=== PATIENT | male | born 1970 | race Caucasian/White ===

== ENCOUNTER 2018-03-31 21:10 | Inpatient (IN) | payer OTHER ==
--- NOTE | 2018-03-31 21:38 | ED ---
General Adult HPI - General Chief complaint: Fall Stated complaint: Recheck, CHF, Edema Time Seen by Provider: 03/31/18 21:24 Source: patient, EMS, RN notes reviewed Mode of arrival: EMS Limitations: physical limitation - History of Present Illness Initial comments: Patient is a pleasant 47-year-old male presenting to the emergency Department with generalized weakness and edema. Patient has chronic edema from congestive heart failure. Patient has been off his medications for the last couple of months. Edema is worse than normal. Patient feels somewhat weak all over. Patient did have a fall and had difficulty getting up. Patient was on the ground for less than 2 hours. No significant injury. No chest pain. Patient states he does not really feel short of breath. - Related Data Home Medications Medication Instructions Recorded Confirmed Ibuprofen [Motrin Ib] 600 mg PO Q8HR 03/31/18 03/31/18 Allergies Allergy/AdvReac Type Severity Reaction Status Date / Time No Known Allergies Allergy Unverified 03/31/18 21:28 Review of Systems ROS Statement: Those systems with pertinent positive or pertinent negative responses have been documented in the HPI. ROS Other: All systems not noted in ROS Statement are negative. Constitutional: Denies: fever Eyes: Denies: eye pain ENT: Denies: ear pain Respiratory: Denies: dyspnea Cardiovascular: Reports: edema. Denies: chest pain Endocrine: Reports: fatigue Gastrointestinal: Denies: abdominal pain Genitourinary: Denies: dysuria Musculoskeletal: Denies: back pain Skin: Denies: rash Neurological: Reports: weakness. Denies: headache, confusion Past Medical History Past Medical History: Heart Failure, Diabetes Mellitus History of Any Multi-Drug Resistant Organisms: None Reported Past Surgical History: Tonsillectomy Additional Past Surgical History / Comment(s): hand surgery, Past Psychological History: No Psychological Hx Reported Smoking Status: Current every day smoker Past Alcohol Use History: Rare Past Drug Use History: None Reported General Exam Limitations: physical limitation General appearance: alert, in no apparent distress, obese Head exam: Present: atraumatic Eye exam: Present: normal appearance, PERRL ENT exam: Present: normal oropharynx Neck exam: Present: normal inspection Respiratory exam: Present: normal lung sounds bilaterally Cardiovascular Exam: Present: tachycardia GI/Abdominal exam: Present: soft. Absent: tenderness Extremities exam: Present: pedal edema. Absent: calf tenderness Neurological exam: Present: alert, oriented X3, CN II-XII intact. Absent: motor sensory deficit Psychiatric exam: Present: normal affect, normal mood Skin exam: Present: other (Umbilical skin fold and bilateral inguinal skin fold with moistness and erythema) Course Vital Signs 03/31/18 21:12 Temperature 98.7 F Pulse Rate 126 H Respiratory 24 Rate Blood Pressure 152/102 O2 Sat by Pulse 94 L Oximetry EKG Findings - EKG Comments: EKG Findings:: Sinus tachycardia 120. PVCs present. UT 154. QRS 106. QT 324. QTC 457. Normal axis. Normal QRS. No acute ST change. Medical Decision Making - Medical Decision Making Patient reevaluated and resting comfortably in bed. Patient family updated on results and plan. Patient states he does have some history of kidney problems however is unclear what his function normally is. Case was discussed in detail with Dr. Del Rio, covering for Dr. Armendariz, who will admit. - Lab Data Result diagrams: 03/31/18 21:39 03/31/18 21:39 Lab Results 03/31/18 03/31/18 03/31/18 Range/Units 21:39 21:39 21:39 WBC 19.1 H (3.8-10.6) k/uL RBC 4.79 (4.30-5.90) m/uL Hgb 14.3 (13.0-17.5) gm/dL Hct 46.7 (39.0-53.0) % MCV 97.5 (80.0-100.0) fL MCH 29.8 (25.0-35.0) pg MCHC 30.6 L (31.0-37.0) g/dL RDW 15.0 (11.5-15.5) % Plt Count 290 (150-450) k/uL Neutrophils % 91 % Lymphocytes % 3 % Monocytes % 4 % Eosinophils % 1 % Basophils % 0 % Neutrophils # 17.4 H (1.3-7.7) k/uL Lymphocytes # 0.5 L (1.0-4.8) k/uL Monocytes # 0.8 (0-1.0) k/uL Eosinophils # 0.1 (0-0.7) k/uL Basophils # 0.1 (0-0.2) k/uL Hypochromasia Slight PT (9.0-12.0) sec INR (<1.2) APTT (22.0-30.0) sec Sodium 136 L (137-145) mmol/L Potassium 4.0 (3.5-5.1) mmol/L Chloride 100 (98-107) mmol/L Carbon Dioxide 19 L (22-30) mmol/L Anion Gap 17 mmol/L BUN 54 H (9-20) mg/dL Creatinine 2.55 H (0.66-1.25) mg/dL Est GFR (CKD-EPI)AfAm 33 (>60 ml/min/1.73 sqM) Est GFR (CKD-EPI)NonAf 28 (>60 ml/min/1.73 sqM) Glucose 145 H (74-99) mg/dL Calcium 9.0 (8.4-10.2) mg/dL Total Bilirubin 1.3 (0.2-1.3) mg/dL AST 33 (17-59) U/L ALT 19 L (21-72) U/L Alkaline Phosphatase 125 (38-126) U/L Total Creatine Kinase (55-170) U/L CK-MB (CK-2) (0.0-2.4) ng/mL CK-MB (CK-2) Rel Index Troponin I (0.000-0.034) ng/mL NT-Pro-B Natriuret Pep 8640 pg/mL Total Protein 6.3 (6.3-8.2) g/dL Albumin 2.8 L (3.5-5.0) g/dL 03/31/18 03/31/18 Range/Units 21:39 21:39 WBC (3.8-10.6) k/uL RBC (4.30-5.90) m/uL Hgb (13.0-17.5) gm/dL Hct (39.0-53.0) % MCV (80.0-100.0) fL MCH (25.0-35.0) pg MCHC (31.0-37.0) g/dL RDW (11.5-15.5) % Plt Count (150-450) k/uL Neutrophils % % Lymphocytes % % Monocytes % % Eosinophils % % Basophils % % Neutrophils # (1.3-7.7) k/uL Lymphocytes # (1.0-4.8) k/uL Monocytes # (0-1.0) k/uL Eosinophils # (0-0.7) k/uL Basophils # (0-0.2) k/uL Hypochromasia PT 12.1 H (9.0-12.0) sec INR 1.2 H (<1.2) APTT 25.8 (22.0-30.0) sec Sodium (137-145) mmol/L Potassium (3.5-5.1) mmol/L Chloride (98-107) mmol/L Carbon Dioxide (22-30) mmol/L Anion Gap mmol/L BUN (9-20) mg/dL Creatinine (0.66-1.25) mg/dL Est GFR (CKD-EPI)AfAm (>60 ml/min/1.73 sqM) Est GFR (CKD-EPI)NonAf (>60 ml/min/1.73 sqM) Glucose (74-99) mg/dL Calcium (8.4-10.2) mg/dL Total Bilirubin (0.2-1.3) mg/dL AST (17-59) U/L ALT (21-72) U/L Alkaline Phosphatase (38-126) U/L Total Creatine Kinase 125 (55-170) U/L CK-MB (CK-2) 3.1 H (0.0-2.4) ng/mL CK-MB (CK-2) Rel Index 2.5 Troponin I 0.124 H* (0.000-0.034) ng/mL NT-Pro-B Natriuret Pep pg/mL Total Protein (6.3-8.2) g/dL Albumin (3.5-5.0) g/dL - Radiology Data Radiology results: image reviewed (Chest x-ray shows cardiomegaly.) Disposition Clinical Impression: Fall, CHF (congestive heart failure), Renal insufficiency Disposition: ADMITTED IP TO THIS HOSP Condition: Serious Is patient prescribed a controlled substance at d/c from ED?: No Referrals: Daniel Colon MD [Primary Care Provider] - 1-2 days Decision Time: 23:44
[2018-03-31 21:52] LABS: Basophils # (A) 0.1 k/uL (0-0.2); Basophils % (A) 0 %; Eosinophils # (A) 0.1 k/uL (0-0.7); Eosinophils % (A) 1 %; HCT 46.7 % (39.0-53.0); HGB 14.3 gm/dL (13.0-17.5); Hypochromasia Slight; Lymphocytes # (A) 0.5 k/uL (1.0-4.8); Lymphocytes % (A) 3 %; MCH 29.8 pg (25.0-35.0); MCHC 30.6 g/dL (31.0-37.0); MCV 97.5 fL (80.0-100.0); Mean Platelet Volume 7.1; Monocytes # (A) 0.8 k/uL (0-1.0); Monocytes % (A) 4 %; Neutrophils # (A) 17.4 k/uL (1.3-7.7); Neutrophils % (A) 91 %; Platelet Count 290 k/uL (150-450); RBC 4.79 m/uL (4.30-5.90); WBC 19.1 k/uL (3.8-10.6)
[2018-03-31 22:09] LABS: Albumin 2.8 g/dL (3.5-5.0); Total Bilirubin 1.3 mg/dL (0.2-1.3); Total Protein 6.3 g/dL (6.3-8.2)
[2018-03-31 22:14] LABS: INR 1.2 (<1.2); Partial Thromboplastin Time 25.8 sec (22.0-30.0); Prothrombin Time 12.1 sec (9.0-12.0)
--- NOTE | 2018-03-31 22:19 | XR ---
EXAM: XR Chest, 2 Views CLINICAL HISTORY: ITS.REASON XR Reason: difficulty breathing TECHNIQUE: Frontal and lateral views of the chest. COMPARISON: No relevant prior studies available. FINDINGS: Lungs: Unremarkable. No consolidation. Pleural space: Unremarkable. No pneumothorax. Heart: Unremarkable. No cardiomegaly. Mediastinum: Unremarkable. Bones/joints: Unremarkable. IMPRESSION: No acute cardiopulmonary abnormality.
[2018-03-31 22:43] LABS: Troponin I 0.124 ng/mL (0.000-0.034)
[2018-03-31 23:19] LABS: Creatine Kinase MB 3.1 ng/mL (0.0-2.4)
[2018-03-31] MEDS ORDERED: HEPARIN SOD,PORK IN 0.45% NACL 25,000 UNIT in 0.45% NACL 1 250ML.BAG IV SCH (23:45)
[2018-03-31] MEDS ORDERED: ASPIRIN 325 MG TAB PO STA (23:46)
[2018-03-31] MEDS ORDERED: HEPARIN SODIUM,PORCINE 5,000 UNIT/ML 1 ML VIAL IV ONE (23:46)
[2018-03-31] MEDS ORDERED: HEPARIN SODIUM,PORCINE 5,000 UNIT/ML 1 ML VIAL IV PRN (23:46)
[2018-03-31] MEDS ORDERED: NITROGLYCERIN SL TABS 0.4 MG TAB SUBLINGUAL PRN (23:46)
[2018-04-01] MEDS: NYSTATIN 100,000 UNIT/GM POWD 15 GM TOPICAL SCH ×3 (00:17→22:48)
[2018-04-01] MEDS: NITROGLYCERIN OINT 1 INCH/GM PACKET TOPICAL SCH ×3 (00:35→15:42)
[2018-04-01] MEDS: FUROSEMIDE 10 MG/ML 4 ML VIAL IV SCH ×3 (00:35→18:17)
[2018-04-01 04:03] LABS: Amorphous Sediment,Urine Rare /hpf; Appearance,Urine Cloudy (Clear); Bacteria,Urine Occasional /hpf; Bilirubin,Urine Negative (Negative); Blood,Urine Small (Negative); Color,Urine Yellow; Glucose,Urine (UA) Negative (Negative); Hyaline Casts,Urine 1 /lpf (0-2); Ketones,Urine Negative (Negative); Leukocyte Esterase,Urine Negative (Negative); Mucus,Urine Rare /hpf; Nitrite,Urine Negative (Negative); PH, Urine 5.5 (5.0-8.0); Protein,Urine 2+ (Negative); RBC,Urine 3 /hpf (0-5); Specific Gravity,Urine 1.016 (1.001-1.035); Squamous Epithelial Cell,Urine <1 /hpf (0-4); WBC,Urine 2 /hpf (0-5)
[2018-04-01 05:00] LABS: Creatine Kinase MB 3.5 ng/mL (0.0-2.4)
[2018-04-01 05:17] LABS: Troponin I 0.149 ng/mL (0.000-0.034)
[2018-04-01 05:44] LABS: Glucose,Whole Blood 124 mg/dL (75-99)
[2018-04-01] MEDS ORDERED: ACETAMINOPHEN TAB 325 MG TAB PO PRN (06:16)
[2018-04-01] MEDS: INSULIN ASPART (NovoLOG) 100 UNIT/ML VIAL SQ SCH ×4 (07:19→20:45)
[2018-04-01 07:45] LABS: Mean Platelet Volume 7.9; Platelet Count 233 k/uL (150-450)
[2018-04-01 07:50] LABS: Partial Thromboplastin Time 26.7 sec (22.0-30.0)
[2018-04-01 08:12] LABS: Cholesterol 79 mg/dL (<200); HDL Cholesterol 12 mg/dL (40-60); LDL Cholesterol,Calculated 32 mg/dL (0-99); Triglycerides 176 mg/dL (<150)
[2018-04-01 08:42] LABS: Calcium 8.8 mg/dL (8.4-10.2); Magnesium 1.9 mg/dL (1.6-2.3); Potassium 3.8 mmol/L (3.5-5.1)
--- NOTE | 2018-04-01 09:05 | P.CRDCN ---
History of Present Illness Consult date: 04/01/18 Requesting physician: Lazaro Del Rio Consult reason: congestive heart failure Chief complaint: Shortness of breath, swelling History of present illness: This is a 47-year-old morbidly obese gentleman with documented history of hypertension, diabetes, denies hyperlipidemia, he smokes one pack of cigarettes per day, states that he does drink alcohol but not in excess as he did in the past. According to the patient, he also has known issues with his kidneys, he does not follow regularly with the physician. He states that he's been getting progressively weak, he states he did have a fall and ended up on the floor and was unable to get back. Patient also states that he had stopped taking all of his medications as prescribed at least 2 months ago if not more. Chest x-ray does not reveal any acute cardiopulmonary abnormality. EKG shows a sinus tachycardia with frequent PVCs. Blood pressure on arrival here 152/102, heart rate 126, 94% on 2 L of oxygen. Blood pressure this morning 142/80 with a heart rate in the 100, 96% on 3 L of oxygen. White blood cell count 19.1, hemoglobin 14.3, platelet count 233. Sodium 136 on admission potassium 4.0, BUN 54 and creatinine 2.5, BNP level 8640. Lab tests from this morning, sodium 138, potassium 3.8, BUN 61 and creatinine 2.6. Troponins 0.124, 0.149. Patient was initiated on IV heparin in the emergency room, he was also started on IV Lasix and Nitropaste. Weight is down significantly from admission, he is diuresing well on IV Lasix. Past Medical History Past Medical History: Heart Failure, Diabetes Mellitus History of Any Multi-Drug Resistant Organisms: None Reported Past Surgical History: Tonsillectomy Additional Past Surgical History / Comment(s): hand surgery, Smoking Status: Current every day smoker - Past Family History Mother Family Medical History: Renal Disease Additional Family Medical History / Comment(s): lasik eye surgery Father Family Medical History: Myocardial Infarction ([place]) Additional Family Medical History / Comment(s): lasik eye surgery Medications and Allergies Home Medications Medication Instructions Recorded Confirmed Type Ibuprofen [Motrin Ib] 600 mg PO Q8HR 03/31/18 03/31/18 History Allergies Allergy/AdvReac Type Severity Reaction Status Date / Time No Known Allergies Allergy Unverified 03/31/18 21:28 Physical Exam Vitals: Vital Signs Temp Pulse Pulse Resp BP BP Pulse Ox 04/01/18 04:00 97.4 F L 104 H 18 142/85 96 04/01/18 03:30 97.4 F L 104 H 18 145/85 96 04/01/18 00:16 97.3 F L 04/01/18 00:00 106 H 18 146/84 96 03/31/18 23:35 96 03/31/18 21:12 98.7 F 126 H 24 152/102 94 L Intake and Output 03/31/18 04/01/18 04/01/18 22:59 06:59 14:59 Intake Total 0 Output Total 1000 Balance -1000 0 Intake: Oral 0 Output: Urine 1000 Other: Voiding Method Indwelling Catheter Weight 188.694 kg 180 kg PHYSICAL EXAMINATION: GENERAL: 47-year-old morbidly obese gentleman in no acute distress at the time of my examination HEENT: Head is atraumatic, normocephalic. Pupils equal, round. Sclera anicteric. Conjunctiva are clear. Mucous membranes of the mouth are moist. Neck is supple. Unable to assess jugular venous pressure. No carotid bruit is heard. HEART EXAMINATION: Heart S1, S2 tachycardic, distant. No murmur or gallop heard. CHEST EXAMINATION: Lungs reveal diminished air entry bilaterally ABDOMEN: Soft, obese ,nontender. Bowel sounds are heard. No organomegaly noted. EXTREMITIES: 1+ peripheral pulses with 3-4+ evidence of peripheral edema, evidence of chronic a venous stasis. NEUROLOGIC [ptient is awake, alert and oriented 3 . . Results 04/01/18 07:06 04/01/18 07:06 Cardiac Enzymes 03/31/18 03/31/18 04/01/18 Range/Units 21:39 21:39 03:48 AST 33 (17-59) U/L CK-MB (CK-2) 3.1 H 3.5 H (0.0-2.4) ng/mL Troponin I 0.124 H* 0.149 H* (0.000-0.034) ng/mL Coagulation 03/31/18 04/01/18 Range/Units 21:39 07:06 PT 12.1 H (9.0-12.0) sec APTT 25.8 26.7 (22.0-30.0) sec Lipids 04/01/18 Range/Units 07:06 Triglycerides 176 H (<150) mg/dL Cholesterol 79 (<200) mg/dL HDL Cholesterol 12 L (40-60) mg/dL CBC 03/31/18 04/01/18 Range/Units 21:39 07:06 WBC 19.1 H (3.8-10.6) k/uL RBC 4.79 (4.30-5.90) m/uL Hgb 14.3 (13.0-17.5) gm/dL Hct 46.7 (39.0-53.0) % Plt Count 290 233 (150-450) k/uL Comprehensive Metabolic Panel 03/31/18 04/01/18 Range/Units 21:39 07:06 Sodium 136 L 138 (137-145) mmol/L Potassium 4.0 3.8 (3.5-5.1) mmol/L Chloride 100 103 (98-107) mmol/L Carbon Dioxide 19 L 22 (22-30) mmol/L BUN 54 H 61 H (9-20) mg/dL Creatinine 2.55 H 2.67 H (0.66-1.25) mg/dL Glucose 145 H 130 H (74-99) mg/dL Calcium 9.0 8.8 (8.4-10.2) mg/dL AST 33 (17-59) U/L ALT 19 L (21-72) U/L Alkaline Phosphatase 125 (38-126) U/L Total Protein 6.3 (6.3-8.2) g/dL Albumin 2.8 L (3.5-5.0) g/dL Current Medications Generic Name Dose Route Start Last Admin Trade Name Freq PRN Reason Stop Dose Admin Acetaminophen 650 mg 04/01/18 06:16 Tylenol Tab PO Q6HR PRN Fever and/ or Pain Aspirin 81 mg 04/02/18 09:00 Aspirin PO DAILY MANJIT Furosemide 40 mg 04/01/18 00:00 04/01/18 00:35 Lasix IV 40 mg Q8H MANJIT Administration Heparin Sodium (Porcine) 0 unit 03/31/18 23:46 Heparin IV Q6HR PRN Low PTT Protocol Heparin Sodium/Sodium Chloride 250 mls @ 10 mls/hr 03/31/18 23:45 04/01/18 00 :44 25,000 unit/ Sodium Chloride IV 1,000 units/hr .Q24H MANJIT 10 mls/hr Administration Protocol Insulin Aspart 0 unit 04/01/18 07:30 04/01/18 07:19 Novolog SQ Not Given ACHS [facility] Protocol Nitroglycerin 1 inch 03/31/18 23:45 04/01/18 00:35 Nitro-Bid Oint TOPICAL 1 inch QID MANJIT Administration Nitroglycerin 0.4 mg 03/31/18 23:46 Nitrostat SUBLINGUAL Q5M PRN Chest Pain Nystatin 1 applic 03/31/18 23:45 04/01/18 00:17 Mycostatin Powder TOPICAL 1 applic BID MANJIT Administration Sodium Chloride 10 ml 04/01/18 09:00 Saline Flush IV BID MANJIT Intake and Output 03/31/18 04/01/18 04/01/18 22:59 06:59 14:59 Intake Total 0 Output Total 1000 Balance -1000 0 Intake: Oral 0 Output: Urine 1000 Other: Voiding Method Indwelling Catheter Weight 188.694 kg 180 kg 04/01/18 07:06 04/01/18 07:06 EKG Interpretations (text) EKG shows a sinus tachycardia with frequent PVCs. Assessment and Plan Plan: Assessment and plan #1 symptoms of progressive weakness with associated shortness of breath and edema, congestive heart failure, LV function unknown #2 acute on chronic renal failure #3 diabetes #4 morbid obesity #5 hyperlipidemia #6 nicotine dependence #7 EtOH use #8 family history of premature coronary artery disease #9 noncompliance #10 abnormality in troponin, likely secondary to abnormal renal function and congestive heart failure. Plan We will obtain an echocardiogram with Doppler study. Continue IV Lasix. Add a beta ixomy to his medication regime, continue Nitropaste at this time, decrease aspirin 81 mg daily. We will also check a hemoglobin A1c, d-dimer, TSH , patient needs significant counseling regarding lifestyle, diet, diabetes, self -care. Further recommendations to follow. DNP note has been reviewed, I agree with a documented findings and plan of care. Patient was seen and examined.
[2018-04-01 09:48] LABS: D-Dimer 2.97 mg/L FEU (<0.60)
[2018-04-01] MEDS: METOPROLOL TARTRATE 25 MG TAB PO SCH ×2 (10:39→20:43)
--- NOTE | 2018-04-01 10:53 | ECHOF ---
Referral Reason:Heart Failure MEASUREMENTS -------- HEIGHT: 185.4 cm WEIGHT: 178.3 kg BP: IVSd: 1.6 cm (0.6 - 1.1) LVIDd: 4.0 cm (3.9 - 5.3) LVPWd: 1.7 cm (0.6 - 1.1) IVSs: 1.8 cm LVIDs: 3.0 cm LVPWs: 1.9 cm LAESV Index (A-L): 26.85 ml/m Ao Diam: 3.9 cm (2.0 - 3.7) AV Cusp: 2.3 cm (1.5 - 2.6) LA Diam: 3.9 cm (2.7 - 3.8) MV EXCURSION: 16.139 mm (> 18.000) MV EF SLOPE: 143 mm/s (70 - 150) EPSS: 1.3 cm MV E Albert: 0.80 m/s MV DecT: 301 ms MV A Albert: 0.86 m/s MV E/A Ratio: 0.94 RAP: 5.00 mmHg RVSP: 11.24 mmHg FINDINGS -------- Resting tachycardia (HR>100bpm). This was a technically difficult study with suboptimal views. Morbid Obesity The left ventricular size is normal. There is moderate concentric left ventricular hypertrophy. O verall left ventricular systolic function is low-normal with, an EF between 50 - 55 %. The RV was not well visualized. The left atrial size is normal. The right atrium was not well visualized. Lumason used The aortic valve is trileaflet and appears structurally normal. There is trace mitral regurgitation. Trace tricuspid regurgitation present. The right ventricular systolic pressure, as measured by Dopp ler, is 11.24mmHg. The pulmonic valve was not well visualized. The aortic root size is normal. IVC Not well visulized. The pericardium is normal. CONCLUSIONS -------- 1. Resting tachycardia (HR>100bpm). 2. This was a technically difficult study with suboptimal views. 3. Morbid Obesity 4. The left ventricular size is normal. 5. There is moderate concentric left ventricular hypertrophy. 6. Overall left ventricular systolic function is low-normal with, an EF between 50 - 55 %. 7. The RV was not well visualized. 8. The left atrial size is normal. 9. The right atrium was not well visualized. 10. Lumason used 11. The aortic valve is trileaflet and appears structurally normal. 12. There is trace mitral regurgitation. 13. Trace tricuspid regurgitation present. 14. The right ventricular systolic pressure, as measured by Doppler, is 11.24mmHg. 15. The pulmonic valve was not well visualized. 16. The aortic root size is normal. 17. IVC Not well visulized. 18. The pericardium is normal. CORPSMAN: Mary Jane Benson RDCS
[2018-04-01 11:22] LABS: Glucose,Whole Blood 153 mg/dL (75-99)
[2018-04-01 12:59] LABS: Creatine Kinase MB 2.5 ng/mL (0.0-2.4)
[2018-04-01 13:26] LABS: Troponin I 0.122 ng/mL (0.000-0.034)
--- NOTE | 2018-04-01 13:49 | NM ---
EXAMINATION TYPE: NM pul vent and perfuse DATE OF EXAM: 04/01/2018 COMPARISON: NONE HISTORY: Shortness of breath TECHNIQUE: Utilizing inhalation of 67.9 mCi Tc 99m DTPA aerosol and intravenous injection of 5.2 mCi of Tc 99m MAA, ventilation and perfusion images are acquired post injection in multiple projections. FINDINGS: There are a few scattered matched ventilation and perfusion defects noted. No evidence for perfusion mismatch. IMPRESSION: Low probability for PE.
--- NOTE | 2018-04-01 14:24 | US ---
EXAMINATION TYPE: US venous doppler duplex LE DATE OF EXAM: 04/01/2018 2:14 PM COMPARISON: NONE CLINICAL HISTORY: talia lower ext edema. Morbidly obese patient with open sores in bilateral groin SIDE PERFORMED: Bilateral TECHNIQUE: The lower extremity deep venous system is examined utilizing real time linear array sonog sumanth with graded compression, doppler sonography and color-flow sonography. VESSELS IMAGED: Femoral Vein Popliteal Vein Small Saphenous Vein * Proximal Calf Veins (* superficial vessels) Right Leg: Negative for DVT as visualized. Limited evaluation due to patient body habitus and skin s ores in patient's groin Left Leg: Negative for DVT as visualized. Limited evaluation due to patient body habitus and skin so res in patient's groin IMPRESSION: No evidence for DVT at this time.
[2018-04-01 16:25] LABS: Glucose,Whole Blood 130 mg/dL (75-99)
[2018-04-01] MEDS ORDERED: ceFAZolin IN SWFI 2 GM/20 ML SYRINGE IVP SCH (17:15)
--- NOTE | 2018-04-01 18:24 | HP ---
HISTORY AND PHYSICAL DATE OF ADMISSION: 03/31/2018 DATE OF SERVICE: 04/01/2018. PRESENTING COMPLAINT: Tired. HISTORY OF PRESENTING COMPLAINT: This is a 47-year-old patient of Dr. Colon from [facility]. The patient has not been taking medications for 2 months at least. States supposed to be diabetic but not really taking any medication, also knows congestive heart failure, presents with nonspecific symptoms. Says he has just not being feeling well. Appetite is okay. No fever. No chills. Just feels tired and run down. Somewhat lethargic. The patient is morbidly obese with over 180 kg and has put on close to 80 pounds in the last 1 year. The patient is becoming rather weak and tired to the point he is falling down and decided to then come in. The patient found have extensive fungal infection in the folds of the abdomen with secondary infection. The patient has been scratching himself. During my interview, history taking, patient is somewhat lethargic and sleepy. The patient did undergo for V/Q scan that came back as low probability. The patient has also had swelling of the legs. The patient is short of breath when I talk to him, but did he denies the same. Denies any cough, fever and chills. Patient also ultrasound lower extremity was negative for DVT. Kaye catheter was placed in the ER. The patient is also smoking cigarettes for over 24 years. REVIEW OF SYSTEMS: CONSTITUTIONAL: Weak and tired. HEENT none. RESPIRATORY: Short of breath. Slight cough. CARDIOVASCULAR as above. GASTROINTESTINAL: None. GENITOURINARY: Kaye catheter. DERMATOLOGICAL: Severe skin changes in the folds. HEMATOLOGICAL: None. LYMPHATICS none. PSYCHIATRY none. NEUROLOGICAL: Generalized weakness. PAST MEDICAL HISTORY: Heart failure, diabetes. PAST SURGICAL HISTORY: Tonsillectomy, hand surgery. SOCIAL HISTORY: Smoking a pack a day for 25 years. Alcohol occasionally. Was working at [employer], not anymore. Lives with his and kids. FAMILY HISTORY: Of renal disease, LASIK eye surgery. MEDICATIONS: Home medications: Motrin 600 mg q.8h p.r.n. ALLERGIES: None. PHYSICAL EXAMINATION: VITAL SIGNS: Vital signs on presentation, temperature 98.7, pulse 126, respiration 24, blood pressure 152/102, pulse ox 94 percent on 2 L. GENERAL APPEARANCE: Morbidly obese, BMI 49. Lying in bed, somewhat lethargic. EYES: Pupils equal. Conjunctivae normal. HEENT: External appearance of nose and ears normal. Oral cavity normal. NECK: Short, thick. JVD unable to assess. Mass not palpable. RESPIRATORY: Effort increased. LUNGS: Distant breath sounds. CARDIOVASCULAR: Heart sounds muffled. Edema present. ABDOMEN distended. Liver and spleen not palpable. No tenderness. LYMPHATICS: No lymph nodes palpable in the neck and axilla. PSYCHIATRY: Somewhat lethargic but able to answer simple questions. NEUROLOGICAL: No facial asymmetry. Moving all 4 limbs. DERMATOLOGICAL: Patient has got extensive redness in the skin folds under the abdomen with secondary breakdown of skin, rather inflamed and tender appearing. Also patient has got calluses on both the heels. INVESTIGATIONS: White count 19.1, hemoglobin 14.3. Potassium 4, BUN 54, creatinine 2.55. Troponin 0.124, 0.149, albumin 2.8. Urine protein positive for 2+. TSH is 2.1. LDL 32. EKG tracing personally reviewed by me shows sinus tachycardia with multiple PVCs. Chest x- ray film personally reviewed by me shows cardiomegaly, some venous prominence. 2D echo shows moderate concentric left ventricular hypertrophy, EF of 50-55 percent. Suboptimal views were obtained. ASSESSMENT: 1. Acute on chronic congestive heart failure, ejection fraction from diastolic dysfunction, ejection fraction 50-55 percent. 2. Morbid obesity, BMI 49.6 from excessive calorie intake. 3. The patient is lethargic, could be from CO2 narcosis. We will check patient's arterial blood gases. 4. Acute chronic obstructive pulmonary disease exacerbation in a current smoker. 5. Chronic nicotine dependence, patient is an active cigarette smoker. 6. Severe Tracy infection intertriginous with secondary bacterial infection. 7. Renal failure, cannot rule out a chronic component, patient's urinalysis showing 2+ protein and also the patient has been on Motrin at home which will be discontinued. 8. Hypoalbuminemia probably an acute phase reactant in a patient from renal failure. 9. Troponin leak probably from renal failure. No evidence of acute coronary syndrome. 10.Obesity hypoventilation syndrome. PLAN: Patient is on IV Lasix. I will add nebulized bronchodilators and inhaled steroids. We will get a renal ultrasound. We will also check patient's arterial blood gases on room air. Physical therapy is also consulted. Cardiology and pulmonary is also consulted. I will also have a dietitian see the patient. The patient also started on IV Ancef for the acute severe cellulitis and nystatin powder will be applied twice a day. Prognosis somewhat guarded. Care was discussed with the patient. Questions were answered. Copy to Seda Nassar. MMGERALDOL / LISAN: [id number] /
[2018-04-01 18:34] LABS: ABG Base Excess 0.7 mmol/L; ABG HCO3 25 mmol/L (21-25); ABG Oxygen Saturation 94.4 % (94-97); ABG PCO2 35 mmHg (35-45); ABG PH 7.46 (7.35-7.45); ABG PO2 76 mmHg (83-108); ABG TCO2 26 mmol/L (19-24)
[2018-04-01 20:17] LABS: Glucose,Whole Blood 127 mg/dL (75-99)
[2018-04-01] MEDS: PIPERACILLIN-TAZOBACTAM 3.375 GM in SODIUM CHLORIDE 0.9% 100 ML IVPB SCH (21:35)
--- NOTE | 2018-04-01 21:56 | P.GSCN ---
History of Present Illness Consult date: 04/01/18 Reason for Consult: Necrotizing fasciitis of the scrotum. Requesting physician: Carlton Santos History of present illness: The patient is a 47-year-old white male hospitalized at [facility] last fall with congestive heart failure. He states that he has failed to sufficiently recover since that time. His condition has recently worsened, though his symptoms have been vague. These consist of generalized weakness, dyspnea on exertion, and diminished appetite. Review of Systems - Constitutional Reports fever, Reports weakness, Denies chills - Cardiovascular Reports dyspnea on exertion, Reports leg edema - Gastrointestinal Reports loss of appetite Past Medical History Past Medical History: Heart Failure, Diabetes Mellitus History of Any Multi-Drug Resistant Organisms: None Reported Past Surgical History: Tonsillectomy Additional Past Surgical History / Comment(s): hand surgery, Smoking Status: Current every day smoker - Past Family History Mother Family Medical History: Renal Disease Additional Family Medical History / Comment(s): lasik eye surgery Father Family Medical History: Myocardial Infarction (PR) Additional Family Medical History / Comment(s): lasik eye surgery Medications and Allergies Home Medications Medication Instructions Recorded Confirmed Type Ibuprofen [Motrin Ib] 600 mg PO Q8HR 03/31/18 03/31/18 History Allergies Allergy/AdvReac Type Severity Reaction Status Date / Time No Known Allergies Allergy Unverified 03/31/18 21:28 Surgical - Exam Vital Signs Temp Pulse Resp BP Pulse Ox 98.7 F 126 H 24 152/102 94 L 03/31/18 21:12 03/31/18 21:12 03/31/18 21:12 03/31/18 21:12 03/31/18 21:12 - General well developed, well nourished, no distress, obese - Respiratory normal respiratory effort - Abdomen Abdomen: soft, non tender, no guarding, no rigid, no rebound - Genitourinary The penis is buried, due to significant scrotal edema. The majority of the scrotal wall is necrotic. Some erythema is noted in the pre-pubic region. Results - Labs 04/01/18 07:06 04/01/18 07:06 Abnormal Lab Results - Last 24 Hours (Table) 03/31/18 03/31/18 03/31/18 Range/Units 21:39 21:39 21:39 WBC 19.1 H (3.8-10.6) k/uL MCHC 30.6 L (31.0-37.0) g/dL Neutrophils # 17.4 H (1.3-7.7) k/uL Lymphocytes # 0.5 L (1.0-4.8) k/uL PT 12.1 H (9.0-12.0) sec INR 1.2 H (<1.2) APTT (22.0-30.0) sec D-Dimer (<0.60) mg/L FEU ABG pH (7.35-7.45) ABG pO2 (83-108) mmHg ABG Total CO2 (19-24) mmol/L Sodium 136 L (137-145) mmol/L Carbon Dioxide 19 L (22-30) mmol/L BUN 54 H (9-20) mg/dL Creatinine 2.55 H (0.66-1.25) mg/dL Glucose 145 H (74-99) mg/dL POC Glucose (mg/dL) (75-99) mg/dL ALT 19 L (21-72) U/L Total Creatine Kinase (55-170) U/L CK-MB (CK-2) (0.0-2.4) ng/mL Troponin I (0.000-0.034) ng/mL Albumin 2.8 L (3.5-5.0) g/dL Triglycerides (<150) mg/dL HDL Cholesterol (40-60) mg/dL Urine Protein (Negative) Urine Blood (Negative) Amorphous Sediment (None) /hpf Urine Bacteria (None) /hpf Urine Mucus (None) /hpf 03/31/18 04/01/18 04/01/18 Range/Units 21:39 03:15 03:48 WBC (3.8-10.6) k/uL MCHC (31.0-37.0) g/dL Neutrophils # (1.3-7.7) k/uL Lymphocytes # (1.0-4.8) k/uL PT (9.0-12.0) sec INR (<1.2) APTT (22.0-30.0) sec D-Dimer (<0.60) mg/L FEU ABG pH (7.35-7.45) ABG pO2 (83-108) mmHg ABG Total CO2 (19-24) mmol/L Sodium (137-145) mmol/L Carbon Dioxide (22-30) mmol/L BUN (9-20) mg/dL Creatinine (0.66-1.25) mg/dL Glucose (74-99) mg/dL POC Glucose (mg/dL) (75-99) mg/dL ALT (21-72) U/L Total Creatine Kinase 219 H (55-170) U/L CK-MB (CK-2) 3.1 H 3.5 H (0.0-2.4) ng/mL Troponin I 0.124 H* 0.149 H* (0.000-0.034) ng/mL Albumin (3.5-5.0) g/dL Triglycerides (<150) mg/dL HDL Cholesterol (40-60) mg/dL Urine Protein 2+ H (Negative) Urine Blood Small H (Negative) Amorphous Sediment Rare H (None) /hpf Urine Bacteria Occasional H (None) /hpf Urine Mucus Rare H (None) /hpf 04/01/18 04/01/18 04/01/18 Range/Units 05:29 07:06 07:06 WBC (3.8-10.6) k/uL MCHC (31.0-37.0) g/dL Neutrophils # (1.3-7.7) k/uL Lymphocytes # (1.0-4.8) k/uL PT (9.0-12.0) sec INR (<1.2) APTT (22.0-30.0) sec D-Dimer 2.97 H (<0.60) mg/L FEU ABG pH (7.35-7.45) ABG pO2 (83-108) mmHg ABG Total CO2 (19-24) mmol/L Sodium (137-145) mmol/L Carbon Dioxide (22-30) mmol/L BUN (9-20) mg/dL Creatinine (0.66-1.25) mg/dL Glucose (74-99) mg/dL POC Glucose (mg/dL) 124 H (75-99) mg/dL ALT (21-72) U/L Total Creatine Kinase (55-170) U/L CK-MB (CK-2) (0.0-2.4) ng/mL Troponin I (0.000-0.034) ng/mL Albumin (3.5-5.0) g/dL Triglycerides 176 H (<150) mg/dL HDL Cholesterol 12 L (40-60) mg/dL Urine Protein (Negative) Urine Blood (Negative) Amorphous Sediment (None) /hpf Urine Bacteria (None) /hpf Urine Mucus (None) /hpf 04/01/18 04/01/18 04/01/18 Range/Units 07:06 11:05 11:15 WBC (3.8-10.6) k/uL MCHC (31.0-37.0) g/dL Neutrophils # (1.3-7.7) k/uL Lymphocytes # (1.0-4.8) k/uL PT (9.0-12.0) sec INR (<1.2) APTT (22.0-30.0) sec D-Dimer (<0.60) mg/L FEU ABG pH (7.35-7.45) ABG pO2 (83-108) mmHg ABG Total CO2 (19-24) mmol/L Sodium (137-145) mmol/L Carbon Dioxide (22-30) mmol/L BUN 61 H (9-20) mg/dL Creatinine 2.67 H (0.66-1.25) mg/dL Glucose 130 H (74-99) mg/dL POC Glucose (mg/dL) 153 H (75-99) mg/dL ALT (21-72) U/L Total Creatine Kinase (55-170) U/L CK-MB (CK-2) 2.5 H (0.0-2.4) ng/mL Troponin I 0.122 H* (0.000-0.034) ng/mL Albumin (3.5-5.0) g/dL Triglycerides (<150) mg/dL HDL Cholesterol (40-60) mg/dL Urine Protein (Negative) Urine Blood (Negative) Amorphous Sediment (None) /hpf Urine Bacteria (None) /hpf Urine Mucus (None) /hpf 04/01/18 04/01/18 04/01/18 Range/Units 11:15 16:02 18:32 WBC (3.8-10.6) k/uL MCHC (31.0-37.0) g/dL Neutrophils # (1.3-7.7) k/uL Lymphocytes # (1.0-4.8) k/uL PT (9.0-12.0) sec INR (<1.2) APTT 66.5 H (22.0-30.0) sec D-Dimer (<0.60) mg/L FEU ABG pH 7.46 H (7.35-7.45) ABG pO2 76 L (83-108) mmHg ABG Total CO2 26 H (19-24) mmol/L Sodium (137-145) mmol/L Carbon Dioxide (22-30) mmol/L BUN (9-20) mg/dL Creatinine (0.66-1.25) mg/dL Glucose (74-99) mg/dL POC Glucose (mg/dL) 130 H (75-99) mg/dL ALT (21-72) U/L Total Creatine Kinase (55-170) U/L CK-MB (CK-2) (0.0-2.4) ng/mL Troponin I (0.000-0.034) ng/mL Albumin (3.5-5.0) g/dL Triglycerides (<150) mg/dL HDL Cholesterol (40-60) mg/dL Urine Protein (Negative) Urine Blood (Negative) Amorphous Sediment (None) /hpf Urine Bacteria (None) /hpf Urine Mucus (None) /hpf 04/01/18 Range/Units 20:15 WBC (3.8-10.6) k/uL MCHC (31.0-37.0) g/dL Neutrophils # (1.3-7.7) k/uL Lymphocytes # (1.0-4.8) k/uL PT (9.0-12.0) sec INR (<1.2) APTT (22.0-30.0) sec D-Dimer (<0.60) mg/L FEU ABG pH (7.35-7.45) ABG pO2 (83-108) mmHg ABG Total CO2 (19-24) mmol/L Sodium (137-145) mmol/L Carbon Dioxide (22-30) mmol/L BUN (9-20) mg/dL Creatinine (0.66-1.25) mg/dL Glucose (74-99) mg/dL POC Glucose (mg/dL) 127 H (75-99) mg/dL ALT (21-72) U/L Total Creatine Kinase (55-170) U/L CK-MB (CK-2) (0.0-2.4) ng/mL Troponin I (0.000-0.034) ng/mL Albumin (3.5-5.0) g/dL Triglycerides (<150) mg/dL HDL Cholesterol (40-60) mg/dL Urine Protein (Negative) Urine Blood (Negative) Amorphous Sediment (None) /hpf Urine Bacteria (None) /hpf Urine Mucus (None) /hpf Microbiology - Last 24 Hours (Table) 04/01/18 03:40 Gram Stain - Preliminary Other - Other Wound Culture - Preliminary 04/01/18 03:40 Anaerobic Culture - Preliminary Scrotum 04/01/18 03:15 Urine Culture - Preliminary Urine,Catheterized Diabetes panel 03/31/18 04/01/18 04/01/18 Range/Units 21:39 07:06 07:06 Sodium 136 L (137-145) mmol/L Potassium 4.0 (3.5-5.1) mmol/L Chloride 100 (98-107) mmol/L Carbon Dioxide 19 L (22-30) mmol/L BUN 54 H (9-20) mg/dL Creatinine 2.55 H (0.66-1.25) mg/dL Glucose 145 H (74-99) mg/dL Hemoglobin A1c 6.0 (4.0-6.0) % Calcium 9.0 (8.4-10.2) mg/dL AST 33 (17-59) U/L ALT 19 L (21-72) U/L Alkaline Phosphatase 125 (38-126) U/L Total Protein 6.3 (6.3-8.2) g/dL Albumin 2.8 L (3.5-5.0) g/dL Triglycerides 176 H (<150) mg/dL HDL Cholesterol 12 L (40-60) mg/dL 04/01/18 Range/Units 07:06 Sodium 138 (137-145) mmol/L Potassium 3.8 (3.5-5.1) mmol/L Chloride 103 (98-107) mmol/L Carbon Dioxide 22 (22-30) mmol/L BUN 61 H (9-20) mg/dL Creatinine 2.67 H (0.66-1.25) mg/dL Glucose 130 H (74-99) mg/dL Hemoglobin A1c (4.0-6.0) % Calcium 8.8 (8.4-10.2) mg/dL AST (17-59) U/L ALT (21-72) U/L Alkaline Phosphatase (38-126) U/L Total Protein (6.3-8.2) g/dL Albumin (3.5-5.0) g/dL Triglycerides (<150) mg/dL HDL Cholesterol (40-60) mg/dL Thyroid panel 04/01/18 Range/Units 07:06 TSH 2.150 (0.465-4.680) mIU/L Calcium panel 03/31/18 04/01/18 Range/Units 21:39 07:06 Calcium 9.0 8.8 (8.4-10.2) mg/dL Albumin 2.8 L (3.5-5.0) g/dL Pituitary panel 03/31/18 04/01/18 Range/Units 21:39 07:06 Sodium 136 L 138 (137-145) mmol/L Potassium 4.0 3.8 (3.5-5.1) mmol/L Chloride 100 103 (98-107) mmol/L Carbon Dioxide 19 L 22 (22-30) mmol/L BUN 54 H 61 H (9-20) mg/dL Creatinine 2.55 H 2.67 H (0.66-1.25) mg/dL Glucose 145 H 130 H (74-99) mg/dL Calcium 9.0 8.8 (8.4-10.2) mg/dL TSH 2.150 (0.465-4.680) mIU/L Adrenal panel 03/31/18 04/01/18 Range/Units 21:39 07:06 Sodium 136 L 138 (137-145) mmol/L Potassium 4.0 3.8 (3.5-5.1) mmol/L Chloride 100 103 (98-107) mmol/L Carbon Dioxide 19 L 22 (22-30) mmol/L BUN 54 H 61 H (9-20) mg/dL Creatinine 2.55 H 2.67 H (0.66-1.25) mg/dL Glucose 145 H 130 H (74-99) mg/dL Calcium 9.0 8.8 (8.4-10.2) mg/dL Total Bilirubin 1.3 (0.2-1.3) mg/dL AST 33 (17-59) U/L ALT 19 L (21-72) U/L Alkaline Phosphatase 125 (38-126) U/L Total Protein 6.3 (6.3-8.2) g/dL Albumin 2.8 L (3.5-5.0) g/dL Assessment and Plan (1) Murali's gangrene of scrotum Current Visit: Yes Status: Acute Code(s): N49.3 - MURALI GANGRENE SNOMED Code(s): 229487167 Plan: I explained the patient's condition in detail to him and his . I explained that the scrotal skin is necrotic and requires surgical debridement in order to control the infection, which is life-threatening. I explained that any tissue that is obviously necrotic will be debrided. Some marginal tissue which is not debrided may require a secondary debridement procedure. I made it clear that the debridement would result in a large surgical wound which will need to heal by secondary intent. Potential risks were also discussed, which include anesthesia, bleeding, and infection. As stated, it was made clear that a secondary procedure may be required. His condition is guarded.
[2018-04-01] MEDS ORDERED: ROCURONIUM BROMIDE 10 MG/ML 10 ML VIAL IV ONE (23:19)
[2018-04-01] MEDS ORDERED: MIDAZOLAM 2 MG/2 ML VIAL ONE (23:19)
[2018-04-01] MEDS ORDERED: PHENYLEPHRINE-0.9% NACL SYG 1 MG/10 ML SYRINGE ONE (23:19)
[2018-04-01] MEDS ORDERED: IV FLUID CONTINUATION 300 ML IV ONE (23:19)
[2018-04-01] MEDS ORDERED: LIDOCAINE 1% INJ 10MG/ML (20 ML MDV) ONE (23:19)
[2018-04-01] MEDS ORDERED: PROPOFOL 10 MG/ML 20 ML VIAL IV ONE (23:19)
[2018-04-01] MEDS ORDERED: fentaNYL (PF) 50 MCG/ML 2 ML AMP ONE (23:19)
[2018-04-01] MEDS ORDERED: SUCCINYLCHOLINE CHLORIDE 100 MG/5 ML SYR IV ONE (23:19)
[2018-04-01] MEDS ORDERED: ASPIRIN 325 MG TAB PO SCH (23:47)
[2018-04-01] MEDS ORDERED: SODIUM CHLORIDE 0.9% 1,000 ML IV ONE ×2 (23:52)
--- NOTE | 2018-04-02 01:18 | P.OP ---
Date of Procedure: 04/02/18 Preoperative Diagnosis: Murali's gangrene of the scrotum Postoperative Diagnosis: Same Procedure(s) Performed: Scrotal exploration with debridement of necrotic scrotal skin Anesthesia: LEONIDAS Surgeon: Riley Martinez Estimated Blood Loss (ml): 25 IV fluids (ml): 800 Pathology: other (Tissue cultures) Condition: critical Disposition: ICU Indications for Procedure: The patient is a 47-year-old male with necrotic scrotal skin consistent with Murali's gangrene. There is yesterday evening progressed, he developed a fever and began to show signs consistent with sepsis. He now comes for surgical debridement. Operative Findings: Necrotic scrotal skin and subcutaneous tissues, predominantly right-sided. The infection appears to track superiorly into the right inguinal region, and inferiorly to the dependent portion of the scrotum. Description of Procedure: The patient was taken to the operating room and given general anesthesia. He was then placed in the dorsolithotomy position, with his legs supported in Nam stirrups. The abdomen and external genitalia were prepped and draped sterilely. The necrotic scrotal skin was sharply excised, using the scalpel, Metzenbaum scissors, and Bovie electrocautery. Approximately 30% of the left scrotum and 70% of the right scrotal was resected. Once the necrotic skin had been excised, attention was paid to the subcutaneous tissues. Aerobic and anaerobic cultures were sent. The necrotic subcutaneous tissues were excised. This left the right testicle exposed, covered only by the tunica vaginalis. The wound was then digitally probed. It appeared to track superiorly to the inguinal region. Inferiorly, the infection tracked down to the midline of the dependent, most inferior aspect of the scrotum. The Bovie electrocautery was used to make counterincisions in the right inguinal region and the dependent portion of the scrotum. 3 L of 0.9 normal saline were then irrigated through the inguinal counterincision, thus irrigating the entire wound. Once this had been done, the wound was reinspected. There was no obvious remaining necrotic tissue. A 1 inch [place] drain was passed from the inguinal incision to the dependent scrotal incision, passing through the main scrotal wound. A Kerlix dressing was soaked in 0.9 normal saline, and this was used to pack the wound. At this time, clean surgical gloves were placed and a 16-[place] Kaye catheter was inserted under sterile conditions. The return of urine was clear but dark in color. A scrotal support was applied. All sponge and needle counts were correct. The should be noted that the erythema extending to the lateral aspect of the abdomen bilaterally was more prominent than when the patient was originally evaluated on the floor by the operating surgeon, but it remained unchanged throughout the procedure. There is no evidence of skin necrosis, crepitus, or fluctuance in these areas. A marker was used to trace the parameter of this erythema for reference. The patient was transferred from the operating room to the ICU. His condition is extremely guarded.
[2018-04-02 01:36] LABS: Glucose,Whole Blood 157 mg/dL (75-99)
[2018-04-02 01:55] LABS: ABG Base Excess -2.7 mmol/L; ABG HCO3 24 mmol/L (21-25); ABG Oxygen Saturation 99.4 % (94-97); ABG PCO2 54 mmHg (35-45); ABG PH 7.26 (7.35-7.45); ABG PO2 189 mmHg (83-108); ABG TCO2 26 mmol/L (19-24)
[2018-04-02] MEDS ORDERED: SODIUM CHLORIDE 0.9% 1,000 ML IV SCH (02:00)
--- NOTE | 2018-04-02 02:02 | XR ---
EXAM: XR Chest, 1 View CLINICAL HISTORY: tube placement TECHNIQUE: Frontal view of the chest. COMPARISON: No relevant prior studies available. FINDINGS: Endotracheal tube 5.8 cm above the stacia. No evidence for pneumothorax. There appears to be a gastric tube which appears to terminate at the GE junction. Cardiomegaly. Small amount of fluid in the fissure. IMPRESSION: Endotracheal tube 5.8 cm above the stacia. Gastric tube appears to be at the GE junction
[2018-04-02] MEDS ORDERED: NALOXONE 0.4 MG/ML 1 ML VIAL IV PRN (02:40)
[2018-04-02] MEDS: PIPERACILLIN-TAZOBACTAM 3.375 GM in SODIUM CHLORIDE 0.9% 100 ML IVPB SCH ×3 (03:30→17:06)
[2018-04-02] MEDS: FUROSEMIDE 10 MG/ML 4 ML VIAL IV SCH ×2 (03:30→09:18)
[2018-04-02] MEDS: PROPOFOL 1,000 MG in EMPTY BAG 1 BAG IV SCH ×11 (03:30→23:09)
[2018-04-02 03:55] LABS: HCT 43.3 % (39.0-53.0); HGB 13.3 gm/dL (13.0-17.5); Hypochromasia Moderate; MCH 30.7 pg (25.0-35.0); MCHC 30.8 g/dL (31.0-37.0); MCV 99.9 fL (80.0-100.0); Macrocytosis Slight; Mean Platelet Volume 7.4; Platelet Count 257 k/uL (150-450); RBC 4.33 m/uL (4.30-5.90); RDW 15.1 % (11.5-15.5); WBC 12.8 k/uL (3.8-10.6)
[2018-04-02] MEDS: IPRATROPIUM-ALBUTEROL 3 ML NEB INHALATION SCH ×6 (04:02→23:24)
[2018-04-02 04:05] LABS: Calcium 8.5 mg/dL (8.4-10.2); Phosphorus 7.1 mg/dL (2.5-4.5); Potassium 3.9 mmol/L (3.5-5.1)
[2018-04-02 04:59] LABS: ABG Base Excess -2.3 mmol/L; ABG HCO3 23 mmol/L (21-25); ABG Oxygen Saturation 98.2 % (94-97); ABG PCO2 43 mmHg (35-45); ABG PH 7.34 (7.35-7.45); ABG PO2 159 mmHg (83-108); ABG TCO2 25 mmol/L (19-24)
[2018-04-02 05:27] LABS: Band Neutrophils % 42 %; Eosinophils # (M) 0.13 k/uL (0-0.7); Large Platelets Present; Metamyelocytes # (M) 0.13 k/uL (0); Metamyelocytes % 1 %; Monocytes # (M) 0.26 k/uL (0-1.0); Neutrophils % (M) 49 %; Nucleated Red Blood Cells 0 /100 WBC (0-0); Total Cells Counted 200
[2018-04-02 05:28] LABS: Toxic Granulation Present
[2018-04-02 05:29] LABS: Toxic Vacuolation Present
[2018-04-02 05:31] LABS: Polychromasia Present
[2018-04-02 05:32] LABS: Anisocytosis (M) Present; Poikilocytosis (M) Present
[2018-04-02] MEDS: INSULIN ASPART (NovoLOG) 100 UNIT/ML VIAL SQ SCH ×3 (05:59→20:32)
[2018-04-02 06:07] LABS: Glucose,Whole Blood 125 mg/dL (75-99)
[2018-04-02 07:29] LABS: Amorphous Sediment,Urine Moderate /hpf; Appearance,Urine Cloudy (Clear); Bacteria,Urine Rare /hpf; Bilirubin,Urine Negative (Negative); Blood,Urine Trace (Negative); Color,Urine Yellow; Glucose,Urine (UA) Negative (Negative); Hyaline Casts,Urine 1 /lpf (0-2); Ketones,Urine Negative (Negative); Leukocyte Esterase,Urine Trace (Negative); Mucus,Urine Rare /hpf; Nitrite,Urine Negative (Negative); Protein,Urine 1+ (Negative); RBC,Urine 4 /hpf (0-5); Specific Gravity,Urine 1.015 (1.001-1.035); Squamous Epithelial Cell,Urine <1 /hpf (0-4); WBC,Urine 2 /hpf (0-5)
[2018-04-02] MEDS: NYSTATIN 100,000 UNIT/GM POWD 15 GM TOPICAL SCH ×2 (08:00→21:46)
[2018-04-02] MEDS: METOPROLOL TARTRATE 25 MG TAB PO SCH ×2 (09:17→21:46)
[2018-04-02] MEDS: ASPIRIN 81 MG PO SCH (09:18)
[2018-04-02] MEDS: PANTOPRAZOLE 40 MG/10 ML VIAL IV SCH (09:18)
[2018-04-02] MEDS: HEPARIN SODIUM,PORCINE 5,000 UNIT/ML 1 ML VIAL SQ SCH ×2 (09:18→17:07)
[2018-04-02] MEDS: CHLORHEXIDINE GLUCONATE 15 ML CUP MUCOUS MEM SCH ×2 (09:19→21:46)
--- NOTE | 2018-04-02 09:30 | PN ---
PROGRESS NOTE Mr. Sandhu is a 47-year-old male with a history of hypertension, hyperlipidemia, history of renal failure, noncompliance who presented to the hospital with symptoms of progressive dyspnea. He was deteriorating yesterday, was evaluated by Dr. Martinez and was found to have necrotizing fasciitis with Murali gangrene of the scrotum. Underwent surgical intervention yesterday. He is intubated and sedated. Hemodynamically stable on no pressors. Otherwise he continued be on the Lasix 40 mg IV q.8 hours. He is on aspirin, metoprolol tartrate 25 mg twice a day in addition to antibiotics. He underwent an echocardiogram yesterday that showed a normal ejection fraction with no significant pulmonary hypertension. PHYSICAL EXAMINATION: A 47-year-old male, intubated, sedated. Blood pressure 120/70 with the heart rate in the 90s. LUNGS: Clear to auscultation anteriorly. HEART: Regular rate and rhythm, S1, S2. No S3. No rub. ABDOMEN: Soft, obese. Discoloration noted in the lower abdomen. The dressing noted. EXTREMITIES: With chronic skin changes and 2+ edema. LAB DATA: Lab data revealed a BUN and creatinine of 77 and 2.86, potassium 3.9. Hemoglobin is 13.3, white blood cell of 12.8. IMPRESSION: 1. Status post Murali gangrene surgery. 2. Respiratory failure, multifactorial with probable evidence of congestive heart failure on the basis of diastolic dysfunction and preserved systolic function. 3. History of chronic tobacco use. 4. Hypertension. 5. Hyperlipidemia. 6. Diabetes mellitus. 7. Chronic kidney disease. 8. Noncompliance. 9. Morbid obesity. RECOMMENDATION: From the cardiac standpoint, we will continue supportive care. Continue to follow his renal function. The prognosis remains guarded. He will be evaluated by Dr. Huynh regarding his pulmonary status and his ventilation. MMODL / IJN: [id number] /
--- NOTE | 2018-04-02 09:58 | CONS ---
CONSULTATION DATE OF SERVICE: 04/01/2018. REASON FOR CONSULTATION: 1. Wounds. 2. Cellulitis. HISTORY OF PRESENT ILLNESS: The patient is a 47-year-old male, morbidly obese with a past medical history significant for congestive heart failure as well as diabetes, however, the patient has not been taking his medication for a couple of months now. The patient has been brought into the ER after apparently the patient did have a fall and has difficulty getting up. The patient apparently was on the floor for 2 hours. The patient also noticed to have significant swelling of his scrotal area that the patient mentioned has been going on for about a week or 2 now. The patient did have mild dull aching pain to the scrotal area and some discoloration with significant foul smelling drainage. The patient denies high-grade fever, though patient denies having any chest pain. Some shortness of breath with minimal cough. No abdominal pain and no diarrhea. With these symptoms, the patient has been evaluated by the ER physician. On arrival to the ER, the patient was afebrile. Mild tachycardia. Blood pressure stable. The patient did have mildly elevated troponin. His white count was elevated at 19,000 and his hematocrit was elevated to 0.67. Patient urine has been not significantly positive. The patient did have a chest x-ray read as negative for any acute cardiopulmonary disease. The patient did have pulmonary perfusion imaging which was low probability for PE and did have a lower extremity venous Doppler that was negative for DVT. The patient was started on cefazolin. Infectious disease was consulted for further recommendation regarding local wound care as well as antibiotic therapy. REVIEW OF SYSTEMS: Positive points have been mentioned in HPI. Rest of the 14 systems has been negative. PAST MEDICAL HISTORY: Heart failure, diabetes mellitus. PAST SURGICAL HISTORY: Tonsillectomy and hand surgery. SOCIAL HISTORY: The patient is currently an every day smoker: Denies drinking or drug use. FAMILY HISTORY: Father history of [place]. ALLERGIES: No known drug allergies. MEDICATIONS: Medications include the patient is currently on Tylenol, aspirin, Lasix, heparin, NovoLog, Lopressor, Nitrostat. PHYSICAL EXAMINATION: On examination, blood pressure is 155/97 with pulse 105, temperature 98 degrees. He is 96% on 3 L nasal cannula. General description is a middle-aged male lying in bed in no distress. No tachypnea or accessory muscle of respiration use. HEENT examination shows no pallor or scleral icterus. Oral mucous membrane is dry. No pharyngeal erythema or thrush. NECK: Trachea central. No thyromegaly. LUNGS: Unlabored breathing, clear to auscultation anteriorly. No wheeze or crackle. HEART: S1, S2. Regular rate and rhythm. ABDOMEN: Soft, no tenderness. No guarding. No rigidity. No . The patient has significant excoriation and of bilateral groin area. Examination of genitourinary system is the patient did have significant swelling of his scrotal area with necrotic skin and significant foul-smelling drainage. EXTREMITIES: With chronic swelling, mild pitting edema. Examination of sacral area did have a stage II skin breakdown, but no definite cellulitis. NEUROLOGICAL: Patient is awake, alert, oriented x3. Mood and affect normal. LABS: Hemoglobin 14.3, white count 19.1 with a BUN of 61, creatinine is 2.67. Electrolytes have been normal. Sugar is slightly elevated. Urine has been negative. Chest x-ray report negative for any pneumonia. Ventilation perfusion testing was low probability. DIAGNOSTIC IMPRESSION AND PLAN: 1. Patient with significant swelling of his scrotal area with evidence of necrotic skin foul-smelling drainage in this patient who does have diabetes mellitus uncontrolled as the patient has not been on any medication, high suspicious for underlying Murali gangrene which will be more likely a mixed bacterial pathogen including both gram-positive skin jake as well as gram-negative. 2. Patient noted to have elevated creatinine, high risk of nephrotoxicity from some of the drugs that has been needed to treated including Vancomycin. PLAN: 1. Stat consultation with Urology. I personally called the urologist and explained the situation to him. Will be on the his way to evaluate the patient if possible will take him to OR this evening at which time deep culture should be obtained both aerobic and anaerobic. 2. We will discontinue cefazolin. 3. We will start the patient on Zosyn 3.375 grams q.8 hours and as the patient is high risk of nephrotoxicity from vancomycin, we will add daptomycin mg/kg coming up with 1000 mg daily. 4. to the sacral area. 5. Nystatin powder to bilateral groin area. 6. We will follow up on his clinical condition and further adjust medication if needed. Overall prognosis remains to be guarded in view of the overall comorbid condition. Thank you for this consultation. Will follow this patient along with you. MMODL / IJN: [id number] /
[2018-04-02] MEDS ORDERED: SODIUM CHLORIDE 0.9% 500 ML 500 ML IV SCH (10:05)
[2018-04-02] MEDS: SODIUM CHLORIDE 0.9% 1,000 ML IV SCH ×2 (10:45→23:09)
--- NOTE | 2018-04-02 10:49 | US ---
EXAMINATION TYPE: US renals and bladder DATE OF EXAM: 04/02/2018 COMPARISON: NONE CLINICAL HISTORY: poss CKD. CKD, exam done portable in ICU, patient on vent, morbidly obese EXAM MEASUREMENTS: Right Kidney: 11.6 x 6.3 x 5.5 cm Left Kidney: n/a Extremely difficult and limited study due to patient body habitus Right Kidney: visualized portions appear wnl. No right-sided hydronephrosis or nephrolithiasis Left Kidney: not seen due to body habitus and overlying bowel gas Bladder: not able to evaluate due to body habitus and weeping open sores on patients pelvic area IMPRESSION: Extremely limited exam with limitations described above. No right-sided hydronephrosis or nephrolithi asis. No sonographic sequela of chronic renal disease.
--- NOTE | 2018-04-02 11:06 | P.CNPUL ---
History of Present Illness Consult date: 04/02/18 Chief complaint: Murali's gangrene, necrotizing fasciitis, sepsis History of present illness: This is a 47-year-old morbidly obese male patient, who has not had any regular follow-up on his healthcare, which is diabetic and he presented to the hospital because of necrotizing fasciitis of the scrotum. The patient has been feeling sick. He was having dull aching pain in the scrotal area along with red discoloration in the scrotal area and the perianal area extending to the right lower abdominal fold all the way up to his right lateral abdominal wall. At the same time there was foul smelling drainage. He denies having any high- grade fever. He was experiencing some shortness of breath. He came in with a white cell count of 19,000. Immediately, he had a urology consultation the patient was taken to the operating room where he underwent scrotal exploration with debridement of the necrotic scrotal skin. There was an infection that was tracking superiorly into the right inguinal region and inferiorly to the dependent portion of the scrotum. Postop, the patient was kept intubated and the patient was brought into the ICU for further care. This morning, the patient is intubated on a mechanical ventilator. Currently is on assist control mode of ventilation at the rate of 22 with a tidal volume of 600, and FiO2 of 70% with a PEEP of 5. The morning blood gases showed a pH of 7.34 with a pCO2 of 43 and pO2 159. The chest x-ray ET tube being high in the trachea. There was cardiomegaly and some infiltration of the right lung compared to the left. Small amount of fluid in the fissure in addition to cardiomegaly. Hemodynamically, the patient was not hypotensive. The patient was sedated with Diprivan and he seemed to be calm and comfortable. He was producing urine output and the neck fluid balance over the past 24 hours has been -151 mL. He is diabetic and he has chronic renal failure. The patient's creatinine has been at 2.8 which is probably consistent with chronic renal failure with a GFR of 25. He is covered with broad-spectrum antibiotics. Currently is on a combination of Zosyn and daptomycin. He is also receiving nystatin powder to the skin folds in his groin area. The echocardiogram was within normal limits. VQ scan was of a low probability a Doppler of lower extremities have been negative. A renal ultrasound was done today and shows no evidence of any hydronephrosis. Review of Systems ROS unobtainable: due to endotracheal tube Past Medical History Past Medical History: Diabetes Mellitus Additional Past Medical History / Comment(s): Morbid obesity, diabetes mellitus , chronic renal failure History of Any Multi-Drug Resistant Organisms: None Reported Past Surgical History: Tonsillectomy Additional Past Surgical History / Comment(s): hand surgery, Smoking Status: Current every day smoker - Past Family History Mother Family Medical History: Renal Disease Additional Family Medical History / Comment(s): lasik eye surgery Father Family Medical History: Myocardial Infarction ([place]) Additional Family Medical History / Comment(s): lasik eye surgery Medications and Allergies Home Medications Medication Instructions Recorded Confirmed Type Ibuprofen [Motrin Ib] 600 mg PO Q8HR 03/31/18 03/31/18 History Allergies Allergy/AdvReac Type Severity Reaction Status Date / Time No Known Allergies Allergy Unverified 03/31/18 21:28 Physical Exam Vitals: Vital Signs Temp Pulse Pulse Resp BP BP Pulse Ox 04/02/18 08:53 98 04/02/18 08:39 95 04/02/18 07:00 93 25 H 120/77 95 04/02/18 06:00 92 23 120/79 95 04/02/18 05:00 92 19 119/77 96 04/02/18 04:22 91 04/02/18 04:20 89 22 113/70 97 04/02/18 04:02 91 04/02/18 04:00 98.4 F 90 22 116/75 97 04/02/18 03:40 90 22 114/74 96 04/02/18 03:20 89 22 116/73 96 04/02/18 03:00 90 22 103/72 96 04/02/18 02:40 89 22 107/70 96 04/02/18 02:20 89 22 102/66 96 04/02/18 02:00 92 22 108/70 96 04/02/18 01:40 90 16 129/68 96 04/02/18 01:20 89 16 105/88 98 04/01/18 20:20 99.6 F 04/01/18 20:00 101.2 F H 109 H 24 153/89 94 L 04/01/18 16:00 98.0 F 105 H 26 H 155/97 04/01/18 12:00 104 H 24 Intake and Output 04/01/18 04/02/18 04/02/18 22:59 06:59 14:59 Intake Total 0 726.5 140 Output Total 550 430 40 Balance -550 296.5 100 Intake: IV 550 50 0.9 150 50 Piperacillin-Tazobactam 3 100 .375 gm In Sodium Chloride 0.9% 100 ml @ 25 mls/hr IVPB Q8HR MANJIT Rx# :[id number] Intake, IV Titration 176.5 90 Amount Propofol 1,000 mg In 176.5 90 Empty Bag 1 bag @ Titrate IV .Q0M MANJIT Rx#: [id number] Oral 0 Output: Urine 550 405 40 Estimated Blood Loss 25 Other: Voiding Method Indwelling Catheter Indwelling Catheter Indwelling Catheter Weight 199.5 kg Morbidly obese, comfortable likely distress. Intubated on a mechanical ventilator. Orogastric and orotracheal tube are both in place. Head exam was generally normal. There was no scleral icterus or corneal arcus. Mucous membranes were moist. Neck was supple and without jugular venous distension, thyromegaly, or carotid bruits. Carotids were easily palpable bilaterally. There was no adenopathy. Lungs were clear to auscultation and percussion, and with normal diaphragmatic excursion. No wheezes or rales were noted. Cardiac exam revealed the PMI to be normally situated and sized. The rhythm was regular and no extrasystoles were noted during several minutes of auscultation. The first and second heart sounds were normal and physiologic splitting of the second heart sound was noted. There were no murmurs, rubs, clicks, or gallops. Abdomen is obese and the patient's organs cannot be accurately palpated. There is no direct tenderness or rebound tensile guarding. Extremities are showing some degree of swelling and there is 1 pitting edema. No cyanosis or clubbing. The perianal area shows postsurgical changes the patient has his scrotal area incised and packed. There is obvious area of cellulitis and warmth and erythema extending from the scrotal area into the right inguinal extending to the right lateral abdominal wall to the flank area. The area was marked. There is also evidence of yeast infection within the skin folds. There is foul smell. Results - Laboratory Findings CBC and BMP: 04/02/18 03:42 04/02/18 03:42 ABG ABG pH 7.34 (7.35-7.45) L 04/02/18 04:54 ABG pCO2 43 mmHg (35-45) 04/02/18 04:54 ABG pO2 159 mmHg (83-108) H 04/02/18 04:54 ABG O2 Saturation 98.2 % (94-97) H 04/02/18 04:54 PT/INR, D-dimer PT 12.1 sec (9.0-12.0) H 03/31/18 21:39 INR 1.2 (<1.2) H 03/31/18 21:39 D-Dimer 2.97 mg/L FEU (<0.60) H 04/01/18 07:06 Abnormal lab findings: Abnormal Labs 03/31/18 03/31/18 03/31/18 21:39 21:39 21:39 WBC 19.1 H MCHC 30.6 L Neutrophils # 17.4 H Neutrophils # (Manual) Lymphocytes # 0.5 L Lymphocytes # (Manual) Metamyelocytes # (Man) PT 12.1 H INR 1.2 H APTT D-Dimer ABG pH ABG pCO2 ABG pO2 ABG Total CO2 ABG O2 Saturation Sodium 136 L Carbon Dioxide 19 L BUN 54 H Creatinine 2.55 H Glucose 145 H POC Glucose (mg/dL) Phosphorus ALT 19 L Total Creatine Kinase CK-MB (CK-2) Troponin I Albumin 2.8 L Triglycerides HDL Cholesterol Urine Protein Urine Blood Ur Leukocyte Esterase Amorphous Sediment Urine Bacteria Urine Mucus 03/31/18 04/01/18 04/01/18 21:39 03:15 03:48 WBC MCHC Neutrophils # Neutrophils # (Manual) Lymphocytes # Lymphocytes # (Manual) Metamyelocytes # (Man) PT INR APTT D-Dimer ABG pH ABG pCO2 ABG pO2 ABG Total CO2 ABG O2 Saturation Sodium Carbon Dioxide BUN Creatinine Glucose POC Glucose (mg/dL) Phosphorus ALT Total Creatine Kinase 219 H CK-MB (CK-2) 3.1 H 3.5 H Troponin I 0.124 H* 0.149 H* Albumin Triglycerides HDL Cholesterol Urine Protein 2+ H Urine Blood Small H Ur Leukocyte Esterase Amorphous Sediment Rare H Urine Bacteria Occasional H Urine Mucus Rare H 04/01/18 04/01/18 04/01/18 05:29 07:06 07:06 WBC MCHC Neutrophils # Neutrophils # (Manual) Lymphocytes # Lymphocytes # (Manual) Metamyelocytes # (Man) PT INR APTT D-Dimer 2.97 H ABG pH ABG pCO2 ABG pO2 ABG Total CO2 ABG O2 Saturation Sodium Carbon Dioxide BUN Creatinine Glucose POC Glucose (mg/dL) 124 H Phosphorus ALT Total Creatine Kinase CK-MB (CK-2) Troponin I Albumin Triglycerides 176 H HDL Cholesterol 12 L Urine Protein Urine Blood Ur Leukocyte Esterase Amorphous Sediment Urine Bacteria Urine Mucus 04/01/18 04/01/18 04/01/18 07:06 11:05 11:15 WBC MCHC Neutrophils # Neutrophils # (Manual) Lymphocytes # Lymphocytes # (Manual) Metamyelocytes # (Man) PT INR APTT D-Dimer ABG pH ABG pCO2 ABG pO2 ABG Total CO2 ABG O2 Saturation Sodium Carbon Dioxide BUN 61 H Creatinine 2.67 H Glucose 130 H POC Glucose (mg/dL) 153 H Phosphorus ALT Total Creatine Kinase CK-MB (CK-2) 2.5 H Troponin I 0.122 H* Albumin Triglycerides HDL Cholesterol Urine Protein Urine Blood Ur Leukocyte Esterase Amorphous Sediment Urine Bacteria Urine Mucus 04/01/18 04/01/18 04/01/18 11:15 16:02 18:32 WBC MCHC Neutrophils # Neutrophils # (Manual) Lymphocytes # Lymphocytes # (Manual) Metamyelocytes # (Man) PT INR APTT 66.5 H D-Dimer ABG pH 7.46 H ABG pCO2 ABG pO2 76 L ABG Total CO2 26 H ABG O2 Saturation Sodium Carbon Dioxide BUN Creatinine Glucose POC Glucose (mg/dL) 130 H Phosphorus ALT Total Creatine Kinase CK-MB (CK-2) Troponin I Albumin Triglycerides HDL Cholesterol Urine Protein Urine Blood Ur Leukocyte Esterase Amorphous Sediment Urine Bacteria Urine Mucus 04/01/18 04/02/18 04/02/18 20:15 01:19 01:50 WBC MCHC Neutrophils # Neutrophils # (Manual) Lymphocytes # Lymphocytes # (Manual) Metamyelocytes # (Man) PT INR APTT D-Dimer ABG pH 7.26 L ABG pCO2 54 H ABG pO2 189 H ABG Total CO2 26 H ABG O2 Saturation 99.4 H Sodium Carbon Dioxide BUN Creatinine Glucose POC Glucose (mg/dL) 127 H 157 H Phosphorus ALT Total Creatine Kinase CK-MB (CK-2) Troponin I Albumin Triglycerides HDL Cholesterol Urine Protein Urine Blood Ur Leukocyte Esterase Amorphous Sediment Urine Bacteria Urine Mucus 04/02/18 04/02/18 04/02/18 03:42 03:42 04:54 WBC 12.8 H MCHC 30.8 L Neutrophils # Neutrophils # (Manual) 11.60 H Lymphocytes # Lymphocytes # (Manual) 0.90 L Metamyelocytes # (Man) 0.13 H PT INR APTT D-Dimer ABG pH 7.34 L ABG pCO2 ABG pO2 159 H ABG Total CO2 25 H ABG O2 Saturation 98.2 H Sodium Carbon Dioxide 21 L BUN 77 H Creatinine 2.86 H Glucose 152 H POC Glucose (mg/dL) Phosphorus 7.1 H ALT Total Creatine Kinase CK-MB (CK-2) Troponin I Albumin Triglycerides HDL Cholesterol Urine Protein Urine Blood Ur Leukocyte Esterase Amorphous Sediment Urine Bacteria Urine Mucus 04/02/18 04/02/18 05:56 06:00 WBC MCHC Neutrophils # Neutrophils # (Manual) Lymphocytes # Lymphocytes # (Manual) Metamyelocytes # (Man) PT INR APTT D-Dimer ABG pH ABG pCO2 ABG pO2 ABG Total CO2 ABG O2 Saturation Sodium Carbon Dioxide BUN Creatinine Glucose POC Glucose (mg/dL) 125 H Phosphorus ALT Total Creatine Kinase CK-MB (CK-2) Troponin I Albumin Triglycerides HDL Cholesterol Urine Protein 1+ H Urine Blood Trace H Ur Leukocyte Esterase Trace H Amorphous Sediment Moderate H Urine Bacteria Rare H Urine Mucus Rare H - Diagnostic Findings Chest x-ray: image reviewed Assessment and Plan Plan: Assessment 1 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 We'll continue IV fluids. We'll put him on normal saline at the rate of 75 mL an hour. He has been adequately resuscitated and the patient is hemodynamically stable at this point. Stop IV Lasix. Continue vent support. No need for any vent changes for today with exception of some weaning of the FiO2 to maintain a saturation above 90%. The patient will be kept on a combination of Zosyn and daptomycin. Keep the patient sedated for now. This is a triple-lumen catheter. Insert an outlying catheter. Initiate some tube feeding. The patient will be taken back to the operating room rather debridement by urology. The patient was also seen by infectious disease. Apply nystatin powder to the bilateral groin area. Diet controlled her blood sugar and use insulin drip if needed. For now the patient on sliding scale coverage. DVT and GI prophylaxis. Condition is obviously critical. Case was discussed with the family.
[2018-04-02 12:56] LABS: Glucose,Whole Blood 128 mg/dL (75-99)
[2018-04-02] MEDS: CALCIUM ACETATE 667 MG CAP PO SCH ×2 (13:16→17:07)
--- NOTE | 2018-04-02 15:44 | P.PN ---
Progress Note - Text Progress Note Date: 04/02/18 Mr. Sandhu is hemodynamically stable and is being weaned from the ventilator. The WBC count is improved. His Kaye catheter is draining clear yellow urine. The cellulitis extending laterally from the inguinal regions is unchanged, though some skin breakdown is noted. There is no evidence of skin necrosis. Preliminary wound cultures have shown gram-negative bacilli. The scrotal wound is essentially clean. There is no necrotic skin. Minimal necrotic tissue is noted within the scrotal wound on the left side. He will continue to receive IV antibiotics and local wound care. He will likely require limited debridement at the bedside.
--- NOTE | 2018-04-02 16:16 | CONS ---
CONSULTATION REASON FOR CONSULT: Renal failure. HISTORY OF PRESENT ILLNESS: Patient is a 47-year-old male who came into the hospital on 03/31/2018 with pain in his scrotal area with significant edema and swelling. Patient had actually sustained a fall. He had been increasingly weak. He had been on the floor for about 2 hours prior to coming to the ER. Patient had necrotic fasciitis of the scrotum. He had surgery late last night with Urology. Dr. Martinez did a scrotal exploration with debridement of necrotic scrotal skin. The patient came back on the vent. Blood pressure has been stable. He is maintained on saline at 50 mL/hour. Patient is also on Lasix 40 mg q.8 hours. Serum creatinine was 2.86 mg/dL. He was at 2.5 on 03/31/2018 and increased to 2.67. Patient had been on Motrin at home. However, he had not taken any for about 2 months now. Previous labs were not available for comparison. PAST MEDICAL HISTORY: 1. Type 2 diabetes. 2. Morbid obesity. 3. It looks like patient has CKD. SOCIAL HISTORY: Patient is an everyday smoker. No history of drug abuse or alcohol abuse. PAST SURGICAL HISTORY: Tonsillectomy. MEDICATIONS AT HOME: Motrin, but none for about 2 months prior to admission. ALLERGIES: NONE. PHYSICAL EXAMINATION: Patient is currently sedated. He is on the vent. FiO2 is at 50%. Blood pressure 125/80, heart rate 93 per minute. Patient is afebrile. EXAMINATION OF THE HEART: S1, S2. EXAMINATION OF LUNGS: Bilateral breath sounds are heard. ABDOMEN: Soft, non-tender. Examination of lower extremities shows edema 1+ bilaterally. Scrotal area is currently dressed. [employer] exam is not performed. LABS: Sodium of 137, potassium 3.9, BUN 77, serum creatinine 2.86, hemoglobin at 13.3 g/dL. UA shows 1+ protein, hyaline casts 1. ASSESSMENT: 1. Acute kidney injury, acute tubular necrosis, currently nonoliguric, secondary to underlying infection. Blood pressure has not been low at this time. Patient is maintained on IV fluids and Lasix. 2. It looks like he has been resuscitated with IV fluids. I will decrease the Lasix and hold off on IV fluids for now. The chest x-ray will be reviewed. Avoid any nephrotoxic medications and repeat labs in a.m. 3. Chronic kidney disease secondary to diabetic nephropathy. UA does show 1+ protein. Baseline creatinine not known at this time. We will obtain previous labs from [facility]. 4. Necrotic fasciitis on the scrotum, status post debridement, maintained on antibiotics. 5. Respiratory failure, acute hypoxic respiratory failure, currently on the vent. 6. Type 2 diabetes. 7. Hyperphosphatemia. Will start phosphate binders. PLAN: Decrease Lasix. Hold fluids for now and reassess volume status. Patient has been resuscitated with IV fluids. Check chest x-ray and avoid nephrotoxic agents. MMODL / IJN: [id number] /
[2018-04-02 18:51] LABS: Glucose,Whole Blood 127 mg/dL (75-99)
--- NOTE | 2018-04-02 19:34 | PCN ---
PROCEDURE NOTE ARTERIAL LINE PLACEMENT: PREOPERATIVE DIAGNOSIS: Necrotizing fasciitis, septic shock. POSTOPERATIVE DIAGNOSIS: Necrotizing fasciitis, septic shock. Indications: Hemodynamic monitoring. A time-out was completed verifying correct patient, procedure, site, positioning, and implant(s) or special equipment if applicable. Nam's test was performed to ensure adequate perfusion. The patient's right wrist was prepped and draped in sterile fashion. 1% Lidocaine was used to anesthetize the area. An 18G [place] arterial line was introduced into the right radial artery. The catheter was threaded over the guide wire and the needle was removed with appropriate pulsatile blood return. Blood loss was minimal. The catheter was then sutured in place to the skin and a sterile dressing applied. Perfusion to the extremity distal to the point of catheter insertion was checked and found to be adequate. The patient tolerated the procedure well and there were no complications. MMODL / LISAN: [id number] /
--- NOTE | 2018-04-02 19:34 | PCN ---
PROCEDURE NOTE PREOPERATIVE DIAGNOSIS: Necrotizing fasciitis, septic shock. POSTOPERATIVE DIAGNOSIS: Necrotizing fasciitis, septic shock. PROCEDURE: Insertion of triple-lumen catheter. Indication Hemodynamic monitoring/Intravenous access. DESCRIPTION OF PROCEDURE: A time-out was completed verifying correct patient, procedure, site, positioning, and implant(s) or special equipment if applicable. The patient was placed in a dependent position appropriate for triple lumen catheter placement based on the vein to be cannulated. The patient's left shoulder was prepped and draped in sterile fashion. 1% Lidocaine was used to anesthetize the surrounding skin area. A triple lumen 9F Cordis catheter was introduced into the left subclavian vein using Seldinger technique. The catheter was threaded smoothly over the guide wire and appropriate blood return was obtained. Each lumen of the catheter was evacuated of air and flushed with sterile saline. The catheter was then sutured in place to the skin and a sterile dressing applied. Perfusion to the extremity distal to the point of catheter insertion was checked and found to be adequate. No complications. MMODL / IJN: [id number] /
--- NOTE | 2018-04-02 20:18 | XR ---
EXAMINATION: XR chest 1V DATE AND TIME: 04/02/2018 7:43 PM CLINICAL INDICATION: PHH; line placement TECHNIQUE: Departmental protocol COMPARISON: 04/02/2018 AP portable semiupright CXR at 1:40 AM FINDINGS: ET tube tip superimposed over the mid trachea at the level of the clavicular heads. NG tube present, coursing over the expected position of the thoracic esophagus, but its distal tip cannot be visualize d as it projects inferior to the film. Left subclavian central line tip superimposed over the mid SVC . There is no evidence of pneumothorax. No mediastinal shift. There is suggestion of partial basilar airlessness of but the upper and mid lungs appear clear and we ll expanded bilaterally. Low lung inflation radiograph noted. IMPRESSION: Limited study, as the lung bases are not both included. Mild partial airlessness right lung base noted.
--- NOTE | 2018-04-02 20:46 | PN ---
PROGRESS NOTE DATE OF SERVICE: 04/02/2018 PRESENTING COMPLAINT: Intubated. INTERVAL HISTORY: This patient was admitted with multiple problems, including Murali's gangrene, CHF exacerbation, COPD exacerbation, severe wilmer infection of the skin folds, renal failure. Patient was taken to the OR yesterday by Dr. Martinez. Debridement was carried out and [place] drain was placed. Patient remains on the ventilator, being on IV propofol drip, FiO2 of 60% and a PEEP of 6. Otherwise, patient is in sinus rhythm. Lying in bed, has got a Kaye catheter in place. Also has got a scrotal support. Patient's and brother at the bedside. REVIEW OF SYSTEMS: Cannot be done, as patient is intubated. CURRENT MEDICATIONS: Reviewed. They include: 1. DuoNeb. 2. IV daptomycin. 3. IV Zosyn. PHYSICAL EXAMINATION: Temperature 98.9, pulse 92, respiration 24, blood pressure 121/75, pulse ox 95% on the ventilator. GENERAL APPEARANCE: Lying in bed, intubated, sedated. EYES: Pupils equal. Conjunctivae normal. HEENT: External appearance of nose and ears normal. Oral cavity has endotracheal tube in place. NECK: JVD unable to assess. Mass not palpable. RESPIRATORY: Effort increased. LUNGS: Diminished breath sounds. CARDIOVASCULAR: First and second sounds normal. Some edema. ABDOMEN: Soft, nontender. Liver and spleen not palpable. Dressing over the scrotum with a [place] drain. PSYCHIATRY: Patient is intubated. Unable to assess. INVESTIGATIONS: White count 12.8, hemoglobin 13.3, potassium 3.9, BUN 77, creatinine 2.86. Renal ultrasound unremarkable. Chest x-ray film, personally reviewed by me, is a portable film showing some cardiomegaly, possible atelectasis. ASSESSMENT: 1. Murali's gangrene, status post incision and drainage, with Her[place] drain in place. 2. Acute on chronic congestive heart failure exacerbation from diastolic dysfunction, ejection fraction 50% to 55%. 3. Morbid obesity with body mass index of 49.6 from excessive calorie intake. 4. Acute chronic obstructive pulmonary disease exacerbation in a current smoker. 5. Chronic nicotine dependence. Patient is an active cigarette smoker. 6. Severe wilmer infection, intertriginous, with secondary bacterial infection. 7. Chronic kidney disease, stage III, probably acute tubular necrosis with a component of acute renal failure, probably acute tubular necrosis from sepsis and patient being on Motrin. 8. Hypoalbuminemia, probably an acute phase reactant. 9. Troponin leak from renal failure. 10.Obesity hypoventilation syndrome. 11.Acute hypoxic respiratory failure secondary to chronic obstructive pulmonary disease, congestive heart failure, and possibly a component of obesity hypoventilation syndrome. PLAN: Continue current medication and treatment plan, supportive care, antibiotics in form of IV Zosyn and daptomycin. Patient is also on IV propofol on the ventilator. Discussed the care with the patient's and brother at the bedside. His did say that the patient about 4 months ago was at [facility], got his medication for a month, and never really followed up with Urology or with his family doctor. MATTHEW / LISAN: [id number] /
[2018-04-02] MEDS: HYDROmorphone 1 MG/ML 1 ML SYRINGE IVP PRN (23:13)
[2018-04-02] MEDS: BUDESONIDE 1 MG/2 ML NEBU INHALATION SCH (23:24)
[2018-04-03] MEDS: PIPERACILLIN-TAZOBACTAM 3.375 GM in SODIUM CHLORIDE 0.9% 100 ML IVPB SCH ×3 (00:26→17:07)
[2018-04-03] MEDS: INSULIN ASPART (NovoLOG) 100 UNIT/ML VIAL SQ SCH ×4 (00:26→18:29)
[2018-04-03] MEDS: HEPARIN SODIUM,PORCINE 5,000 UNIT/ML 1 ML VIAL SQ SCH ×3 (00:26→17:08)
[2018-04-03 00:27] LABS: Glucose,Whole Blood 137 mg/dL (75-99)
[2018-04-03] MEDS: PROPOFOL 1,000 MG in EMPTY BAG 1 BAG IV SCH ×5 (01:24→09:10)
[2018-04-03] MEDS: IPRATROPIUM-ALBUTEROL 3 ML NEB INHALATION SCH ×6 (03:20→23:33)
[2018-04-03] MEDS: HYDROmorphone 1 MG/ML 1 ML SYRINGE IVP PRN ×3 (03:21→11:36)
--- NOTE | 2018-04-03 03:52 | PN ---
PROGRESS NOTE DATE OF SERVICE: 04/02/2018 REASON FOR FOLLOWUP: Sepsis secondary to the Murali's gangrene. INTERVAL HISTORY: The patient was taken to the OR last night. The patient is status post extensive debridement of the scrotal area for Murali's gangrene. The patient subsequently has been admitted to the ICU, currently on the vent. The culture has been obtained which are currently pending. This morning the patient has been afebrile except a fever of 101.2 last night, it is 99.1 today: Currently not requiring any pressor support. EXAMINATION: Blood pressure is 100/68 with a pulse of 90, temperature 99.1, he is 96% on 50% FiO2. GENERAL DESCRIPTION: A middle-aged male lying in bed in no distress. RESPIRATORY SYSTEM: Unlabored breathing, clear to auscultation anteriorly. HEART: S1, S2. Regular rate and rhythm. ABDOMEN: Soft, no tenderness. Examination of the genital area: Scrotal tissue has some necrotic areas, foul-smelling drainage. LABS: Hemoglobin 13.1, 12.8. BUN of 77, creatinine 2.86. DIAGNOSTIC IMPRESSION AND PLAN: Patient admitted to the hospital with sepsis. Source is Murali's gangrene in this patient who has uncontrolled diabetes mellitus. The patient is currently covered with daptomycin and Zosyn to cover while waiting for the culture to finalize. Local wound care to continue with ( ) and the patient will possibly need further debridement. We will monitor his clinical course closely. Continue supportive care. MMGERALDOL / LISAN: [id number] /
[2018-04-03 04:40] LABS: Basophils # (A) 0.1 k/uL (0-0.2); Basophils % (A) 0 %; Eosinophils # (A) 0.1 k/uL (0-0.7); Eosinophils % (A) 1 %; HCT 42.9 % (39.0-53.0); HGB 12.7 gm/dL (13.0-17.5); Hypochromasia Moderate; Lymphocytes # (A) 0.9 k/uL (1.0-4.8); Lymphocytes % (A) 5 %; MCH 29.4 pg (25.0-35.0); MCHC 29.7 g/dL (31.0-37.0); Macrocytosis Slight; Monocytes # (A) 0.6 k/uL (0-1.0); Monocytes % (A) 3 %; Neutrophils # (A) 15.8 k/uL (1.3-7.7); Neutrophils % (A) 89 %; Platelet Count 239 k/uL (150-450); RBC 4.33 m/uL (4.30-5.90); RDW 14.9 % (11.5-15.5); WBC 17.7 k/uL (3.8-10.6)
[2018-04-03 04:41] LABS: ABG Base Excess -3.3 mmol/L; ABG HCO3 23 mmol/L (21-25); ABG Oxygen Saturation 95.4 % (94-97); ABG PCO2 45 mmHg (35-45); ABG PH 7.31 (7.35-7.45); ABG PO2 91 mmHg (83-108); ABG TCO2 24 mmol/L (19-24)
[2018-04-03 04:57] LABS: Calcium 8.6 mg/dL (8.4-10.2); Magnesium 2.3 mg/dL (1.6-2.3); Phosphorus 8.6 mg/dL (2.5-4.5); Potassium 3.8 mmol/L (3.5-5.1)
[2018-04-03] MEDS: BUDESONIDE 1 MG/2 ML NEBU INHALATION SCH ×2 (06:11→19:57)
[2018-04-03 06:39] LABS: Glucose,Whole Blood 124 mg/dL (75-99)
--- NOTE | 2018-04-03 07:27 | XR ---
EXAMINATION TYPE: XR chest 1V DATE OF EXAM: 04/03/2018 CLINICAL HISTORY: Difficulty breathing progress study. TECHNIQUE: Single AP portable upright view of the chest is obtained. COMPARISON: Chest x-ray from one day earlier FINDINGS: Cardiomediastinal silhouette is stable in the interval. Interval placement of endotracheal tube which is approximately 9 cm superior to to the stacia. Enteri c tube is again seen in the distal esophagus. Left subclavian central line with the distal tip at the mid SVC. Small left pleural effusion with associated atelectasis. No pneumothorax. No focal airspace disease. Osseous structures are unchanged. IMPRESSION: 1. No endotracheal tube with the tip located approximately 9 mm superior to the stacia. Advancement i s recommended. 2. Enteric tube located in the distal esophagus. Advancement is recommended. 3. Small left pleural effusion with atelectasis.
[2018-04-03] MEDS: PANTOPRAZOLE 40 MG/10 ML VIAL IV SCH (09:08)
[2018-04-03] MEDS: CALCIUM ACETATE 667 MG CAP PO SCH ×3 (09:08→17:20)
[2018-04-03] MEDS: METOPROLOL TARTRATE 25 MG TAB PO SCH ×2 (09:08→22:45)
[2018-04-03] MEDS: ASPIRIN 81 MG PO SCH (09:08)
[2018-04-03] MEDS: CHLORHEXIDINE GLUCONATE 15 ML CUP MUCOUS MEM SCH (09:09)
[2018-04-03] MEDS: NYSTATIN 100,000 UNIT/GM POWD 15 GM TOPICAL SCH ×2 (09:09→22:46)
--- NOTE | 2018-04-03 09:43 | P.PN ---
Subjective Patient is seen in follow-up for acute kidney injury. Renal function is worsening with creatinine up to 3.32 today. Currently maintained on normal saline at 75 mL an hour. He is nonoliguric. Remains intubated. No vasopressors. 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 He is maintained on antibiotics. Vital signs are stable. General: The patient appeared well nourished and normally developed. HEENT: Head exam is unremarkable. Neck is without jugular venous distension. Intubated. LUNGS: Breath sounds decreased. HEART: Rate and Rhythm are regular. First and second heart sounds normal. No murmurs, rubs or gallops. ABDOMEN: Abdominal exam reveals normal bowel sounds. Non-tender and non- distended. No evidence of peritonitis. EXTREMITITES: No clubbing, cyanosis, or edema. Objective - Vital Signs Vital signs: Vital Signs Temp 99.8 F H 04/03/18 04:01 Pulse 92 04/03/18 07:00 Resp 24 04/03/18 07:00 BP 130/82 04/03/18 07:00 Pulse Ox 95 04/03/18 07:00 Intake & Output 04/02/18 04/03/18 04/03/18 18:59 06:59 18:59 Intake Total 1590 1707.645 178 Output Total 1315 1340 55 Balance 275 367.645 123 Weight 201.1 kg Intake: IV 200 961 78 0.9% .Pressure Bag 50 36 3 Piperacillin-Tazobactam 3 150 100 .375 gm In Sodium Chloride 0.9% 100 ml @ 25 mls/hr IVPB Q8HR [facility] Rx# :[id number] Sodium Chloride 0.9% 1, 825 75 000 ml @ 75 mls/hr IV . [id number] [facility] Rx#:[id number] Intake, IV Titration 1390 716.645 100 Amount DAPTOmycin 1,000 mg In 50 Sodium Chloride 0.9% 50 ml @ 100 mls/hr IVPB Q24H [facility] Rx#:[id number] Propofol 1,000 mg In 490 641.645 100 Empty Bag 1 bag @ Titrate IV .Q0M [facility] Rx#: [id number] Sodium Chloride 0.9% 1, 250 000 ml @ 50 mls/hr IV . Q20H [facility] Rx#:[id number] Sodium Chloride 0.9% 1, 600 75 000 ml @ 75 mls/hr IV . [id number] [facility] Rx#:[id number] Other 30 Output: Urine 1315 1340 55 Other: Voiding Method Indwelling Catheter Indwelling Catheter # Bowel Movements 1 ABP, PAP, CO, CI - Last Documented Arterial Blood Pressure 134/63 - Labs CBC & Chem 7: 04/03/18 04:15 04/03/18 04:15 Labs: Abnormal Lab Results - Last 24 Hours (Table) 04/02/18 04/02/18 04/03/18 Range/Units 12:43 18:39 00:16 WBC (3.8-10.6) k/uL Hgb (13.0-17.5) gm/dL MCHC (31.0-37.0) g/dL Neutrophils # (1.3-7.7) k/uL Lymphocytes # (1.0-4.8) k/uL ABG pH (7.35-7.45) Carbon Dioxide (22-30) mmol/L BUN (9-20) mg/dL Creatinine (0.66-1.25) mg/dL Glucose (74-99) mg/dL POC Glucose (mg/dL) 128 H 127 H 137 H (75-99) mg/dL Phosphorus (2.5-4.5) mg/dL 04/03/18 04/03/18 04/03/18 Range/Units 04:15 04:15 04:37 WBC 17.7 H (3.8-10.6) k/uL Hgb 12.7 L (13.0-17.5) gm/dL MCHC 29.7 L (31.0-37.0) g/dL Neutrophils # 15.8 H (1.3-7.7) k/uL Lymphocytes # 0.9 L (1.0-4.8) k/uL ABG pH 7.31 L (7.35-7.45) Carbon Dioxide 21 L (22-30) mmol/L BUN 90 H (9-20) mg/dL Creatinine 3.32 H (0.66-1.25) mg/dL Glucose 127 H (74-99) mg/dL POC Glucose (mg/dL) (75-99) mg/dL Phosphorus 8.6 H (2.5-4.5) mg/dL 04/03/18 Range/Units 06:27 WBC (3.8-10.6) k/uL Hgb (13.0-17.5) gm/dL MCHC (31.0-37.0) g/dL Neutrophils # (1.3-7.7) k/uL Lymphocytes # (1.0-4.8) k/uL ABG pH (7.35-7.45) Carbon Dioxide (22-30) mmol/L BUN (9-20) mg/dL Creatinine (0.66-1.25) mg/dL Glucose (74-99) mg/dL POC Glucose (mg/dL) 124 H (75-99) mg/dL Phosphorus (2.5-4.5) mg/dL Microbiology - Last 24 Hours (Table) 04/02/18 00:49 Gram Stain - Preliminary Groin Wound Culture - Preliminary Gram Neg Bacilli Group D Enterococcus 04/02/18 00:49 Gram Stain - Preliminary Other - Other Wound Culture - Preliminary Gram Neg Bacilli Group D Enterococcus 04/02/18 03:42 Blood Culture - Preliminary Blood No Growth after 24 hours 04/01/18 20:05 Blood Culture - Preliminary Blood No Growth after 24 hours 04/01/18 18:57 Blood Culture - Preliminary Blood No Growth after 24 hours 04/02/18 01:15 Gram Stain - Preliminary Sputum Sputum Culture - Preliminary 04/02/18 06:00 Urine Culture - Preliminary Urine,Catheterized 04/02/18 00:49 Anaerobic Culture - Preliminary Scrotum 04/02/18 00:49 Anaerobic Culture - Preliminary Scrotum 04/01/18 03:15 Urine Culture - Final Urine,Catheterized 04/01/18 03:40 Gram Stain - Preliminary Other - Other Wound Culture - Preliminary Gram Neg Bacilli Assessment and Plan Plan: Assessment: 1. Acute kidney injury secondary to ATN secondary to severe sepsis. Creatinine up to 3.32 today. No hydronephrosis noted on renal ultrasound. Unknown baseline creatinine function. 2. Severe sepsis secondary to Murali's gangrene of the scrotum status post debridement on April 01. 3. Metabolic acidosis secondary to acute kidney injury. 4. Hyperphosphatemia secondary to acute kidney injury maintained on PhosLo. 5. Diabetes mellitus. 6. Morbid obesity. Plan: Hold off on diuretics. Maintain normal saline at 75 mL an hour. Tube feeding to be started today. Continue to monitor renal function and urine output.
--- NOTE | 2018-04-03 10:39 | P.PN ---
Progress Note - Text Progress Note Date: 04/03/18 The patient remains intubated and sedated. His temperature was 99.9 earlier this morning but he is currently afebrile. White blood count is 17,700. Renal function has worsened and his BUN/creatinine is 90/3.32. The patient continues to have some erythema in the right groin but the skin appears viable and there appears to be less edema as the superficial skin is beginning to flake. I debrided necrotic tissue in the left scrotum and overlying the left testicle today. I'm not convinced the left testicle is viable as it is very soft and it will be reevaluated tomorrow. The right testicle had previously been debrided and appears viable. Impression: Necrotizing fasciitis involving the scrotum and possibly left testicle with acute renal failure secondary to sepsis. The patient will be continued on his current antibiotics and his scrotum will be reassessed in the morning. Additional debridement at the bedside will most likely be required. At least at this point I do not feel the patient needs to be taken back to the operating room for this.
--- NOTE | 2018-04-03 11:17 | PN ---
PROGRESS NOTE Mr. Sandhu is a 47-year-old male who has a history of hypertension, history of hyperlipidemia, diabetes mellitus, chronic kidney disease, who presented with symptoms of progressive dyspnea and progressive fatigue. He was found to have Murali's gangrene and underwent surgical intervention by Dr. Martinez. He remains intubated and sedated. Hemodynamically he is stable. He is in sinus mechanism. There is no evidence of tachycardia or bradycardia. He continues to be on aspirin, metoprolol tartrate 25 mg twice a day. PHYSICAL EXAMINATION: Blood pressure 130/80 with a heart rate in the 90s. LUNGS: Clear anteriorly. HEART: Regular rate, rhythm. S1, S2. No S3. No rub appreciated. ABDOMEN: Soft, obese. Positive bowel sounds. EXTREMITIES: Edema noted, +2. Abdomen with erythema noted. Dressing in place. LAB DATA/IMAGING: BUN and creatinine of 90 and 3.32, worsened compared to yesterday. Potassium 3.8, hemoglobin of 12.7, white blood cell count of 17.7. Chest x-ray revealed no clear infiltrate. IMPRESSION: 1. Respiratory failure. 2. Murali's gangrene, status post surgical intervention. 3. Worsening renal function. 4. Diabetes, not treated prior to the admission. 5. Sepsis. 6. Hypertension. 7. Morbid obesity. RECOMMENDATIONS: From the cardiac standpoint, we will continue supportive care. The prognosis remains guarded. We will follow his renal function, and depending on that further recommendations will be made. MMODL / LISAN: [id number] /
[2018-04-03 12:20] LABS: Glucose,Whole Blood 125 mg/dL (75-99)
[2018-04-03 13:52] LABS: ABG Base Excess -4.6 mmol/L; ABG HCO3 22 mmol/L (21-25); ABG Oxygen Saturation 95.6 % (94-97); ABG PCO2 45 mmHg (35-45); ABG PH 7.29 (7.35-7.45); ABG PO2 85 mmHg (83-108); ABG TCO2 23 mmol/L (19-24)
[2018-04-03] MEDS ORDERED: SODIUM BICARB 8.4% 50 ML SYR (1 MEQ/ML) IV ONE (14:05)
--- NOTE | 2018-04-03 15:03 | P.PN ---
Subjective Progress Note Date: 04/03/18 This is a 47-year-old morbidly obese male patient, who has not had any regular follow-up on his healthcare, which is diabetic and he presented to the hospital because of necrotizing fasciitis of the scrotum. The patient has been feeling sick. He was having dull aching pain in the scrotal area along with red discoloration in the scrotal area and the perianal area extending to the right lower abdominal fold all the way up to his right lateral abdominal wall. At the same time there was foul smelling drainage. He denies having any high- grade fever. He was experiencing some shortness of breath. He came in with a white cell count of 19,000. Immediately, he had a urology consultation the patient was taken to the operating room where he underwent scrotal exploration with debridement of the necrotic scrotal skin. There was an infection that was tracking superiorly into the right inguinal region and inferiorly to the dependent portion of the scrotum. Postop, the patient was kept intubated and the patient was brought into the ICU for further care. This morning, the patient is intubated on a mechanical ventilator. Currently is on assist control mode of ventilation at the rate of 22 with a tidal volume of 600, and FiO2 of 70% with a PEEP of 5. The morning blood gases showed a pH of 7.34 with a pCO2 of 43 and pO2 159. The chest x-ray ET tube being high in the trachea. There was cardiomegaly and some infiltration of the right lung compared to the left. Small amount of fluid in the fissure in addition to cardiomegaly. Hemodynamically, the patient was not hypotensive. The patient was sedated with Diprivan and he seemed to be calm and comfortable. He was producing urine output and the neck fluid balance over the past 24 hours has been -151 mL. He is diabetic and he has chronic renal failure. The patient's creatinine has been at 2.8 which is probably consistent with chronic renal failure with a GFR of 25. He is covered with broad-spectrum antibiotics. Currently is on a combination of Zosyn and daptomycin. He is also receiving nystatin powder to the skin folds in his groin area. The echocardiogram was within normal limits. VQ scan was of a low probability a Doppler of lower extremities have been negative. A renal ultrasound was done today and shows no evidence of any hydronephrosis. On today's evaluation of 04/03/2018, the patient is still intubated on a mechanical ventilator. The patient underwent further debridement of his necrotizing fasciitis and for knees gangrene and the wound in his scrotal area is open and packed. There is still ongoing drainage and foul smelling material. The patient had probably cultures is showing enterococcus and gram- negative. He remains on a combination of vancomycin and Zosyn. He is hemodynamically stable and afebrile. The patient had a white cell count of 17.7. Is producing adequate amount of urine output. The patient remains on a mechanical ventilator. Remains on assist control mode with a tidal volume of 600 and FiO2 of 60% with a PEEP of 5 and an respiratory rate of 22. I initially kept on the FiO2 down to 50%. Following that the patient was given a sedation holiday. He was taken off Diprivan. He was able to follow commands and answer questions appropriately. Weaning parameters were checked. Subsequently the patient was given a spontaneous breathing trial with a pressure support of 5 and a PEEP of 5. After 1 hour of a spontaneous breathing trial, the patient was found to have a pH of 7.29 with a pCO2 of 45 and pO2 of 85 and FiO2 of 50%. I gave the patient 2 A of bicarb and following that extubated this patient to a nasal cannula and currently is on 40 of oxygen by nasal cannula. His chest x-ray findings are stable. He remains on IV fluids of normal saline at rate of 75 mL an hour. He is on Dilaudid for pain control. His blood sugars are covered with sliding scale coverage. Objective - Vital Signs Vital signs: Vital Signs Temp 99.0 F 04/03/18 12:00 Pulse 87 04/03/18 13:00 Resp 22 04/03/18 13:00 BP 146/81 04/03/18 13:00 Pulse Ox 94 L 04/03/18 13:00 Intake & Output 04/02/18 04/03/18 04/03/18 18:59 06:59 18:59 Intake Total 1590 1707.645 871 Output Total 1315 1340 240 Balance 275 367.645 631 Weight 201.1 kg Intake: IV 200 961 671 0.9% .Pressure Bag 50 36 21 Piperacillin-Tazobactam 3 150 100 125 .375 gm In Sodium Chloride 0.9% 100 ml @ 25 mls/hr IVPB Q8HR [facility] Rx# :[id number] Sodium Chloride 0.9% 1, 825 525 000 ml @ 75 mls/hr IV . [id number] [facility] Rx#:[id number] Intake, IV Titration 1390 716.645 200 Amount DAPTOmycin 1,000 mg In 50 Sodium Chloride 0.9% 50 ml @ 100 mls/hr IVPB Q24H [facility] Rx#:[id number] Propofol 1,000 mg In 490 641.645 200 Empty Bag 1 bag @ Titrate IV .Q0M [facility] Rx#: [id number] Sodium Chloride 0.9% 1, 250 000 ml @ 50 mls/hr IV . Q20H [facility] Rx#:[id number] Sodium Chloride 0.9% 1, 600 75 000 ml @ 75 mls/hr IV . [id number] [facility] Rx#:[id number] Other 30 Output: Urine 1315 1340 240 Other: Voiding Method Indwelling Catheter Indwelling Catheter Indwelling Catheter # Bowel Movements 1 ABP, PAP, CO, CI - Last Documented Arterial Blood Pressure 143/71 - Exam Morbidly obese, comfortable likely distress. Extubated for now currently on 4 L of oxygen by nasal cannula. Head exam was generally normal. There was no scleral icterus or corneal arcus. Mucous membranes were moist. Neck was supple and without jugular venous distension, thyromegaly, or carotid bruits. Carotids were easily palpable bilaterally. There was no adenopathy. Lungs were clear to auscultation and percussion, and with normal diaphragmatic excursion. No wheezes or rales were noted. Cardiac exam revealed the PMI to be normally situated and sized. The rhythm was regular and no extrasystoles were noted during several minutes of auscultation. The first and second heart sounds were normal and physiologic splitting of the second heart sound was noted. There were no murmurs, rubs, clicks, or gallops. Abdomen is obese and the patient's organs cannot be accurately palpated. There is no direct tenderness or rebound tensile guarding. Extremities are showing some degree of swelling and there is 1 pitting edema. No cyanosis or clubbing. The perianal area shows postsurgical changes the patient has his scrotal area incised and packed. There is obvious area of cellulitis and warmth and erythema extending from the scrotal area into the right inguinal extending to the right lateral abdominal wall to the flank area. The area was marked. There is also evidence of yeast infection within the skin folds. There is foul smell. - Labs CBC & Chem 7: 04/03/18 04:15 04/03/18 04:15 Labs: Abnormal Lab Results - Last 24 Hours (Table) 04/02/18 04/03/18 04/03/18 Range/Units 18:39 00:16 04:15 WBC 17.7 H (3.8-10.6) k/uL Hgb 12.7 L (13.0-17.5) gm/dL MCHC 29.7 L (31.0-37.0) g/dL Neutrophils # 15.8 H (1.3-7.7) k/uL Lymphocytes # 0.9 L (1.0-4.8) k/uL ABG pH (7.35-7.45) Carbon Dioxide (22-30) mmol/L BUN (9-20) mg/dL Creatinine (0.66-1.25) mg/dL Glucose (74-99) mg/dL POC Glucose (mg/dL) 127 H 137 H (75-99) mg/dL Phosphorus (2.5-4.5) mg/dL 04/03/18 04/03/18 04/03/18 Range/Units 04:15 04:37 06:27 WBC (3.8-10.6) k/uL Hgb (13.0-17.5) gm/dL MCHC (31.0-37.0) g/dL Neutrophils # (1.3-7.7) k/uL Lymphocytes # (1.0-4.8) k/uL ABG pH 7.31 L (7.35-7.45) Carbon Dioxide 21 L (22-30) mmol/L BUN 90 H (9-20) mg/dL Creatinine 3.32 H (0.66-1.25) mg/dL Glucose 127 H (74-99) mg/dL POC Glucose (mg/dL) 124 H (75-99) mg/dL Phosphorus 8.6 H (2.5-4.5) mg/dL 02/09/19 02/09/19 Range/Units 12:09 13:50 WBC (3.8-10.6) k/uL Hgb (13.0-17.5) gm/dL MCHC (31.0-37.0) g/dL Neutrophils # (1.3-7.7) k/uL Lymphocytes # (1.0-4.8) k/uL ABG pH 7.29 L (7.35-7.45) Carbon Dioxide (22-30) mmol/L BUN (9-20) mg/dL Creatinine (0.66-1.25) mg/dL Glucose (74-99) mg/dL POC Glucose (mg/dL) 125 H (75-99) mg/dL Phosphorus (2.5-4.5) mg/dL Microbiology - Last 24 Hours (Table) 04/01/18 03:40 Gram Stain - Preliminary Other - Other Wound Culture - Preliminary Proteus mirabilis 04/02/18 06:00 Urine Culture - Final Urine,Catheterized 04/02/18 00:49 Gram Stain - Preliminary Groin Wound Culture - Preliminary Gram Neg Bacilli Group D Enterococcus 04/02/18 00:49 Gram Stain - Preliminary Other - Other Wound Culture - Preliminary Gram Neg Bacilli Group D Enterococcus 04/02/18 03:42 Blood Culture - Preliminary Blood No Growth after 24 hours 04/01/18 20:05 Blood Culture - Preliminary Blood No Growth after 24 hours 04/01/18 18:57 Blood Culture - Preliminary Blood No Growth after 24 hours 04/02/18 01:15 Gram Stain - Preliminary Sputum Sputum Culture - Preliminary 04/02/18 00:49 Anaerobic Culture - Preliminary Scrotum 04/02/18 00:49 Anaerobic Culture - Preliminary Scrotum 04/01/18 03:15 Urine Culture - Final Urine,Catheterized Assessment and Plan Plan: Assessment 1 Murali's gangrene/necrotizing fasciitis with secondary sepsis , the patient is post debridement and the patient is found to have gram-negative and enterococcal infection and the patient on broad-spectrum antibiotics. He is on no pressors. He underwent a second debridement procedure today. 2 sepsis secondary to above 3 acute hypoxic respiratory failure secondary to above, the patient required intubation mechanical ventilation. The patient is currently is extubated. Currently on 4 of oxygen nasal cannula. 4 diabetes mellitus type 2, essentially poorly controlled on outpatient basis 5 chronic renal failure, consider diabetic nephropathy 6 wilmer infection of the skin folds 7 morbidly obesity with a BMI of 55 8 leukocytosis secondary to above MARK This evaluation was done and more than 30 minutes. The patient was weaned off the mechanical ventilated and the patient was extubated. We'll continue local wound care. The cellulitis around the Murali's gangrene that was extending to the upper abdominal wall is improving on today's evaluation. He said antibiotic coverage. Consult with ID. Consulted urology. Monitor the blood sugar and control her blood sugars. Monitor renal function. Continue same antibiotic coverage. Keep the patient 40s about 2 by nasal cannula. Adjust the FiO2 titrated above 90%. We'll continue to follow. Time with Patient: Greater than 30
--- NOTE | 2018-04-03 17:50 | PN ---
PROGRESS NOTE DATE OF SERVICE: 04/03/2018 REASON FOR FOLLOWUP: Murali's gangrene with sepsis. INTERVAL HISTORY: The patient is currently afebrile, has been breathing comfortably. He has been extubated. Denies having any chest pain or cough or any worsening pain in the scrotal area. PHYSICAL EXAMINATION: Blood pressure 176/89 with a pulse of 98, temperature of 99. General description is a middle-aged male lying in bed in no distress. RESPIRATORY SYSTEM: Unlabored breathing. Clear to auscultation anteriorly. HEART: S1, S2. Regular rate and rhythm. ABDOMEN: Soft. No tenderness. GROIN AREA: Redness has decreased. Scrotal wound still has a foul-smelling slight necrotic area. LABS: Hemoglobin 12.7, white count 17.7 with a BUN of 90, creatinine 3.32. DIAGNOSTIC IMPRESSION AND PLAN: Patient with sepsis. Source is Murali's gangrene, status post extensive debridement. We will switch over local wound care to the Dakin's solution-soaked dressing. Currently covered with Zosyn and daptomycin, to continue for now while waiting for his condition to stabilize. Continue with supportive care. MMODL / IJN: [id number] /
[2018-04-03] MEDS: SODIUM HYPOCHLORITE 0.25% 480 ML BOT MISCELLANE SCH ×2 (18:29→22:46)
[2018-04-03 18:39] LABS: Glucose,Whole Blood 134 mg/dL (75-99)
--- NOTE | 2018-04-03 22:11 | PN ---
PROGRESS NOTE DATE OF SERVICE: 04/03/2018. PRESENTING COMPLAINT: Intubated. INTERVAL HISTORY: This patient has been neglecting himself, presented with multiple problems including Murali's gangrene, necrotizing fascitis of scrotum, COPD exacerbation, severe Tracy infection in skin folds, acute renal failure. The patient was extubated this morning. Prior to that, Dr. Palm did some further debridement of the left scrotum. The patient is awake but lethargic, short of breath, on nasal cannula, on IV fluids, Diprivan has been discontinued. Remains in the ICU. REVIEW OF SYSTEMS: Attempted, but the patient is rather short of breath. CURRENT MEDICATIONS: Reviewed, that include: 1. DuoNeb. 2. Aspirin. 3. Pulmicort. 4. Phos-Lo. 5. Daptomycin. 6. Subcu heparin. 7. Lopressor. 8. IV Zosyn. 9. IV fluids. 10.Dakin solution. PHYSICAL EXAMINATION: Temperature 99, pulse 98, respirations 15, blood pressure 176/89, pulse ox 92 percent on nasal cannula. GENERAL APPEARANCE: Lying in bed, lethargic, but awake. EYE: Pupils equal. Conjunctivae normal. HEENT: External appearance of nose and ears normal. Oral cavity dry. NECK: JVD unable to assess. Mass not palpable. Respiratory effort increased. LUNGS: Diminished breath sounds cardiovascular. CARDIOVASCULAR: Heart sounds muffled. Edema present. ABDOMEN: Distended, soft. Liver and spleen not palpable. Perineum, [place] drains present in the scrotal area with dressing. PSYCHIATRY: The patient is attempting to answer some questions. INVESTIGATIONS: White count 13.7, hemoglobin 12.7, potassium 3.8, BUN 90, creatinine 3.32. Gram stain is growing group D Enterococcus. ASSESSMENT: 1. Acute Murali gangrene, status post I and D with necrotizing fasciitis of both scrotum. 2. Chronic congestive heart failure from diastolic dysfunction. Ejection fraction 50% to 55%. 3. Morbid obesity BMI 49.6 from excessive calorie intake. 4. Acute chronic obstructive pulmonary disease exacerbation in a current smoker. 5. Chronic nicotine dependence, patient is active cigarette smoker. 6. Severe Tracy infection, intertriginous, with secondary bacterial infection of the groin folds. 7. Acute tubular necrosis causing acute kidney injury from sepsis. The patient is also on Motrin. 8. Rule out chronic kidney disease. 9. Hypoalbuminemia probably an acute phase reactant. 10.Troponin leak from renal failure. 11.Obesity hypoventilation syndrome. 12.Acute hypoxic respiratory failure secondary to COPD, status post ventilator support. PLAN: Continue current medication and treatment plan, antibiotics and local care. The patient will need BiPAP support. Antibiotics coordinated by ID. The patient remains in the ICU. Currently no family is present. Follow closely. MMODL / IJN: [id number] /
[2018-04-04] MEDS: HEPARIN SODIUM,PORCINE 5,000 UNIT/ML 1 ML VIAL SQ SCH ×4 (01:05→23:52)
[2018-04-04] MEDS: INSULIN ASPART (NovoLOG) 100 UNIT/ML VIAL SQ SCH ×4 (01:05→18:27)
[2018-04-04] MEDS: PIPERACILLIN-TAZOBACTAM 3.375 GM in SODIUM CHLORIDE 0.9% 100 ML IVPB SCH ×3 (01:06→16:35)
[2018-04-04 01:12] LABS: Glucose,Whole Blood 146 mg/dL (75-99)
[2018-04-04] MEDS: IPRATROPIUM-ALBUTEROL 3 ML NEB INHALATION SCH ×6 (03:33→23:52)
[2018-04-04] MEDS: SODIUM CHLORIDE 0.9% 1,000 ML IV SCH ×2 (04:12→09:30)
[2018-04-04 04:39] LABS: Basophils # (A) 0.1 k/uL (0-0.2); Basophils % (A) 0 %; Eosinophils # (A) 0.1 k/uL (0-0.7); Eosinophils % (A) 1 %; HGB 12.6 gm/dL (13.0-17.5); Hypochromasia Slight; Lymphocytes % (A) 5 %; MCH 30.4 pg (25.0-35.0); MCHC 30.8 g/dL (31.0-37.0); MCV 98.7 fL (80.0-100.0); Macrocytosis Slight; Mean Platelet Volume 7.4; Monocytes # (A) 0.6 k/uL (0-1.0); Monocytes % (A) 3 %; Neutrophils # (A) 17.4 k/uL (1.3-7.7); Neutrophils % (A) 89 %; Platelet Count 292 k/uL (150-450); RBC 4.16 m/uL (4.30-5.90); RDW 15.5 % (11.5-15.5); WBC 19.5 k/uL (3.8-10.6)
[2018-04-04 04:56] LABS: Albumin 2.4 g/dL (3.5-5.0); Calcium 8.4 mg/dL (8.4-10.2); Magnesium 2.4 mg/dL (1.6-2.3); Phosphorus 7.3 mg/dL (2.5-4.5); Potassium 3.6 mmol/L (3.5-5.1); Total Bilirubin 1.1 mg/dL (0.2-1.3); Total Protein 5.7 g/dL (6.3-8.2)
[2018-04-04 06:48] LABS: Glucose,Whole Blood 114 mg/dL (75-99)
[2018-04-04 08:03] LABS: ABG Base Excess -2.5 mmol/L; ABG HCO3 23 mmol/L (21-25); ABG PCO2 38 mmHg (35-45); ABG PH 7.38 (7.35-7.45); ABG TCO2 24 mmol/L (19-24)
[2018-04-04 08:05] LABS: ABG PO2 58 mmHg (83-108)
[2018-04-04] MEDS: BUDESONIDE 1 MG/2 ML NEBU INHALATION SCH ×2 (08:09→19:59)
[2018-04-04] MEDS: METOPROLOL TARTRATE 25 MG TAB PO SCH ×2 (08:30→20:24)
[2018-04-04] MEDS: ASPIRIN 81 MG PO SCH (08:30)
[2018-04-04] MEDS: CALCIUM ACETATE 667 MG CAP PO SCH ×3 (08:30→17:38)
[2018-04-04] MEDS: PANTOPRAZOLE 40 MG/10 ML VIAL IV SCH (08:31)
[2018-04-04] MEDS: NYSTATIN 100,000 UNIT/GM POWD 15 GM TOPICAL SCH ×2 (08:39→20:30)
[2018-04-04] MEDS: SODIUM HYPOCHLORITE 0.25% 480 ML BOT MISCELLANE SCH ×2 (08:39→22:47)
--- NOTE | 2018-04-04 09:27 | XR ---
EXAMINATION TYPE: XR chest 1V DATE OF EXAM: 04/04/2018 COMPARISON: 04/03/2018 INDICATION: Mechanical vent. Previous abnormal chest x-ray No additional history is provided. TECHNIQUE: Single frontal view of the chest is obtained. FINDINGS: The heart size is moderate size. This is stable from comparison.. The pulmonary vasculature is normal. Left lower lobe infiltrate has improved. Some mild retrocardiac infiltrate remains present. Endotracheal tube and nasogastric tube is been removed. EKG leads overlie the chest. IMPRESSION: 1. Cardiomegaly with a mild improving retrocardiac infiltrate.
--- NOTE | 2018-04-04 09:54 | P.PN ---
Subjective Patient is seen in follow-up for acute kidney injury. Renal function is stable with creatinine of 3.25 today. Currently maintained on normal saline at 75 mL an hour. He is nonoliguric. Extubated yesterday. No vasopressors. 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 He is maintained on antibiotics. Currently awake and alert. Denies chest pain or shortness of breath. Oral intake is fair. Vital signs are stable. General: The patient appeared well nourished and normally developed. HEENT: Head exam is unremarkable. Neck is without jugular venous distension. LUNGS: Breath sounds decreased. HEART: Rate and Rhythm are regular. First and second heart sounds normal. No murmurs, rubs or gallops. ABDOMEN: Abdominal exam reveals normal bowel sounds. Non-tender and non- distended. No evidence of peritonitis. EXTREMITITES: Trace edema. Chronic changes noted. Objective - Vital Signs Vital signs: Vital Signs Temp 97.4 F L 04/04/18 08:00 Pulse 95 04/04/18 09:00 Resp 36 H 04/04/18 09:00 BP 164/93 04/04/18 09:00 Pulse Ox 95 04/04/18 09:00 Intake & Output 04/03/18 04/04/18 04/04/18 18:59 06:59 18:59 Intake Total 1414 2088 534 Output Total 810 295 Balance 604 1793 534 Weight 201.3 kg Intake: IV 1214 1008 284 0.9% .Pressure Bag 39 33 9 DAPTOmycin 1,000 mg In 50 Sodium Chloride 0.9% 50 ml @ 100 mls/hr IVPB Q24H [facility] Rx#:[id number] Piperacillin-Tazobactam 3 200 100 50 .375 gm In Sodium Chloride 0.9% 100 ml @ 25 mls/hr IVPB Q8HR [facility] Rx# :[id number] Sodium Chloride 0.9% 1, 975 825 225 000 ml @ 75 mls/hr IV . [id number] [facility] Rx#:[id number] Intake, IV Titration 200 Amount Propofol 1,000 mg In 200 Empty Bag 1 bag @ Titrate IV .Q0M [facility]JIT Rx#: [id number] Oral 1080 250 Output: Urine 810 295 Other: Voiding Method Indwelling Catheter Indwelling Catheter Indwelling Catheter # Voids 1 ABP, PAP, CO, CI - Last Documented Arterial Blood Pressure 146/72 - Labs CBC & Chem 7: 04/04/18 04:17 04/04/18 04:17 Labs: Abnormal Lab Results - Last 24 Hours (Table) 04/03/18 04/03/18 04/03/18 Range/Units 12:09 13:50 18:27 WBC (3.8-10.6) k/uL RBC (4.30-5.90) m/uL Hgb (13.0-17.5) gm/dL MCHC (31.0-37.0) g/dL Neutrophils # (1.3-7.7) k/uL ABG pH 7.29 L (7.35-7.45) ABG pO2 (83-108) mmHg ABG O2 Saturation (94-97) % Carbon Dioxide (22-30) mmol/L BUN (9-20) mg/dL Creatinine (0.66-1.25) mg/dL Glucose (74-99) mg/dL POC Glucose (mg/dL) 125 H 134 H (75-99) mg/dL Phosphorus (2.5-4.5) mg/dL Magnesium (1.6-2.3) mg/dL Total Protein (6.3-8.2) g/dL Albumin (3.5-5.0) g/dL 04/04/18 04/04/18 04/04/18 Range/Units 01:00 04:17 04:17 WBC 19.5 H (3.8-10.6) k/uL RBC 4.16 L (4.30-5.90) m/uL Hgb 12.6 L (13.0-17.5) gm/dL MCHC 30.8 L (31.0-37.0) g/dL Neutrophils # 17.4 H (1.3-7.7) k/uL ABG pH (7.35-7.45) ABG pO2 (83-108) mmHg ABG O2 Saturation (94-97) % Carbon Dioxide 21 L (22-30) mmol/L BUN 100 H (9-20) mg/dL Creatinine 3.25 H (0.66-1.25) mg/dL Glucose 124 H (74-99) mg/dL POC Glucose (mg/dL) 146 H (75-99) mg/dL Phosphorus 7.3 H (2.5-4.5) mg/dL Magnesium 2.4 H (1.6-2.3) mg/dL Total Protein 5.7 L (6.3-8.2) g/dL Albumin 2.4 L (3.5-5.0) g/dL 04/04/18 04/04/18 Range/Units 06:36 07:54 WBC (3.8-10.6) k/uL RBC (4.30-5.90) m/uL Hgb (13.0-17.5) gm/dL MCHC (31.0-37.0) g/dL Neutrophils # (1.3-7.7) k/uL ABG pH (7.35-7.45) ABG pO2 58 L* (83-108) mmHg ABG O2 Saturation 89.0 L (94-97) % Carbon Dioxide (22-30) mmol/L BUN (9-20) mg/dL Creatinine (0.66-1.25) mg/dL Glucose (74-99) mg/dL POC Glucose (mg/dL) 114 H (75-99) mg/dL Phosphorus (2.5-4.5) mg/dL Magnesium (1.6-2.3) mg/dL Total Protein (6.3-8.2) g/dL Albumin (3.5-5.0) g/dL Microbiology - Last 24 Hours (Table) 04/02/18 03:42 Blood Culture - Preliminary Blood No Growth after 48 hours 04/01/18 20:05 Blood Culture - Preliminary Blood No Growth after 48 hours 04/01/18 18:57 Blood Culture - Preliminary Blood No Growth after 48 hours 04/01/18 03:40 Gram Stain - Preliminary Other - Other Wound Culture - Preliminary Proteus mirabilis 04/02/18 06:00 Urine Culture - Final Urine,Catheterized 04/02/18 00:49 Gram Stain - Preliminary Groin Wound Culture - Preliminary Gram Neg Bacilli Group D Enterococcus 04/02/18 00:49 Gram Stain - Preliminary Other - Other Wound Culture - Preliminary Gram Neg Bacilli Group D Enterococcus Assessment and Plan Plan: Assessment: 1. Acute kidney injury secondary to ATN secondary to severe sepsis. Creatinine stable at 3.25 today. No hydronephrosis noted on renal ultrasound. Unknown baseline creatinine function. 2. Severe sepsis secondary to Murali's gangrene of the scrotum status post debridement on April 01. 3. Metabolic acidosis secondary to acute kidney injury. 4. Hyperphosphatemia secondary to acute kidney injury maintained on PhosLo. Better. 5. Diabetes mellitus. 6. Morbid obesity. 7. Acute hypoxic respiratory failure status post extubation April 03. Plan: Decrease rate of normal saline to 50 mL an hour. Continue to monitor renal function and urine output.
[2018-04-04] MEDS: HYDROmorphone 1 MG/ML 1 ML SYRINGE IVP PRN (10:13)
--- NOTE | 2018-04-04 10:35 | P.PN ---
Progress Note - Text Progress Note Date: 04/04/18 The patient was extubated last night and is afebrile and hemodynamically stable. He is relatively comfortable. White blood count is 19,500. BUN/ creatinine are about the same as yesterday at 100/3.25. Bicarb is 21. Urine culture obtained at the time of surgery is no growth. The skin in the right groin and scrotum appears viable and there is no evidence of crepitance. Erythema and edema in the right groin is unchanged to slightly better. Patient continues to have necrotic tissue present in the scrotum and I sharply debrided both the right and the left scrotum. The right testicle is well vascularized. The left testicle may be more superior than the left as it was not well visualized. I removed a large amount of necrotic tissue in the left scrotum but I suspect that the patient will need continued debridement periodically. The wound will be irrigated with Dakin solution and packed periodically.
--- NOTE | 2018-04-04 11:21 | PN ---
PROGRESS NOTE Mr. Sandhu is a 47-year-old male who has a history of hypertension, hyperlipidemia, diabetes mellitus, renal failure, noncompliance who came in with progressive dyspnea, was found to have gangrene, underwent surgery and further debridement today by Dr. Palm, was found to have a perianal large abscess. He is awake, alert, extubated, hemodynamically stable. He is in sinus mechanism. He is on no pressors. There is no evidence of ventricular tachycardia or bradycardia. He continues to be at this time on aspirin, metoprolol tartrate 25 mg twice a day. PHYSICAL EXAMINATION: Blood pressure running in the 130s with a heart rate in the 90s. LUNGS: Clear with few crackles at the bases. HEART: Regular rate and rhythm S1, S2. No S3. No rub. ABDOMEN: Soft, obese. Erythema noted. EXTREMITIES: +2 to 3 edema. Evidence of the abscess and fistula noted in the perianal area. LAB DATA: Lab data revealed a hemoglobin 12.6, BUN and creatinine of 103.5, potassium 3.6. IMPRESSION: 1. Sepsis gangrene. 2. Perianal abscess. 3. Renal failure. 4. Diabetes. 5. Hypertension. 6. Morbid obesity. RECOMMENDATION: From the cardiac standpoint, we will continue on the present therapy. The prognosis remains guarded. The patient may require further debridement of his perianal abscesses. He is continuing to have debridement by Dr. Palm. We will see him on as needed basis. Please feel free to call us for any questions. MMODL / IJN: [id number] /
--- NOTE | 2018-04-04 12:03 | P.PN ---
Progress Note - Text Progress Note Date: 04/04/18 The patient was rolled onto his side to inspect his buttocks and was noted to have an abscess draining adjacent to the anus. I probed this with my finger and believe that it leads to the posterior scrotal region and is most likely a continuation of the scrotal abscess. I discussed this with Dr. Ladd as I believe that it may be beneficial for the patient to have a diverting colostomy and he is in agreement with this but said that he would like to defer this and any further debridement of the scrotum and perineum until tomorrow. The patient had some food already this morning which would increase his anesthetic risk today.
[2018-04-04 12:14] LABS: Glucose,Whole Blood 128 mg/dL (75-99)
--- NOTE | 2018-04-04 15:01 | P.PN ---
Subjective Progress Note Date: 04/04/18 This is a 47-year-old morbidly obese male patient, who has not had any regular follow-up on his healthcare, which is diabetic and he presented to the hospital because of necrotizing fasciitis of the scrotum. The patient has been feeling sick. He was having dull aching pain in the scrotal area along with red discoloration in the scrotal area and the perianal area extending to the right lower abdominal fold all the way up to his right lateral abdominal wall. At the same time there was foul smelling drainage. He denies having any high- grade fever. He was experiencing some shortness of breath. He came in with a white cell count of 19,000. Immediately, he had a urology consultation the patient was taken to the operating room where he underwent scrotal exploration with debridement of the necrotic scrotal skin. There was an infection that was tracking superiorly into the right inguinal region and inferiorly to the dependent portion of the scrotum. Postop, the patient was kept intubated and the patient was brought into the ICU for further care. This morning, the patient is intubated on a mechanical ventilator. Currently is on assist control mode of ventilation at the rate of 22 with a tidal volume of 600, and FiO2 of 70% with a PEEP of 5. The morning blood gases showed a pH of 7.34 with a pCO2 of 43 and pO2 159. The chest x-ray ET tube being high in the trachea. There was cardiomegaly and some infiltration of the right lung compared to the left. Small amount of fluid in the fissure in addition to cardiomegaly. Hemodynamically, the patient was not hypotensive. The patient was sedated with Diprivan and he seemed to be calm and comfortable. He was producing urine output and the neck fluid balance over the past 24 hours has been -151 mL. He is diabetic and he has chronic renal failure. The patient's creatinine has been at 2.8 which is probably consistent with chronic renal failure with a GFR of 25. He is covered with broad-spectrum antibiotics. Currently is on a combination of Zosyn and daptomycin. He is also receiving nystatin powder to the skin folds in his groin area. The echocardiogram was within normal limits. VQ scan was of a low probability a Doppler of lower extremities have been negative. A renal ultrasound was done today and shows no evidence of any hydronephrosis. On today's evaluation of 04/03/2018, the patient is still intubated on a mechanical ventilator. The patient underwent further debridement of his necrotizing fasciitis and for knees gangrene and the wound in his scrotal area is open and packed. There is still ongoing drainage and foul smelling material. The patient had probably cultures is showing enterococcus and gram- negative. He remains on a combination of vancomycin and Zosyn. He is hemodynamically stable and afebrile. The patient had a white cell count of 17.7. Is producing adequate amount of urine output. The patient remains on a mechanical ventilator. Remains on assist control mode with a tidal volume of 600 and FiO2 of 60% with a PEEP of 5 and an respiratory rate of 22. I initially kept on the FiO2 down to 50%. Following that the patient was given a sedation holiday. He was taken off Diprivan. He was able to follow commands and answer questions appropriately. Weaning parameters were checked. Subsequently the patient was given a spontaneous breathing trial with a pressure support of 5 and a PEEP of 5. After 1 hour of a spontaneous breathing trial, the patient was found to have a pH of 7.29 with a pCO2 of 45 and pO2 of 85 and FiO2 of 50%. I gave the patient 2 A of bicarb and following that extubated this patient to a nasal cannula and currently is on 40 of oxygen by nasal cannula. His chest x-ray findings are stable. He remains on IV fluids of normal saline at rate of 75 mL an hour. He is on Dilaudid for pain control. His blood sugars are covered with sliding scale coverage. On today's evaluation of 04/04/2018, the patient is extubated. The patient is being seen in follow-up. Overall status is stable. He is on 5 L of oxygen by nasal cannula. His pulse ox is low 90s. Denies having any cough sputum production chest tightness or wheezing. I had a lengthy discussion with the patient's urologist. The patient required further debridement of the scrotal area and furthermore, upon further inspection, we identified another draining abscess adjacent to the patient's anus. There Was Further Probed and It Led to the Posterior Scrotal Area and Was Probably a Continuation of the Scrotal Abscess. The Case Was Discussed with the general surgeon and the patient would benefit from a diverticular colostomy special with his complicated necrotizing fasciitis and perianal abscesses identified on today's evaluation. He will need further debridement of the scrotal area and perianal area on a daily basis. Meanwhile, the patient is on the same antibiotic coverage. A cellulitis over the right lateral chest area is improving. The patient's wounds have grown a combination of Proteus mirabilis and Enterococcus faecalis. There is also another sputum analysis that showed Haemophilus influenza. The antibiotic coverage IV Zosyn for now. He has ongoing foul smelling drainage. He is hemodynamically stable. No hypotension. His white cell count remains elevated at 19.5. His renal function is also impaired with a creatinine of 3.25 which is stable compared to yesterday. The cardiac rhythm remains sinus. Objective - Vital Signs Vital signs: Vital Signs Temp 97.8 F 04/04/18 12:00 Pulse 92 04/04/18 14:00 Resp 11 L 04/04/18 12:00 BP 161/94 04/04/18 14:00 Pulse Ox 96 04/04/18 14:00 Intake & Output 04/03/18 04/04/18 04/04/18 18:59 06:59 18:59 Intake Total 1414 2088 874 Output Total 616 606 8026 Balance 604 1793 -261 Weight 201.3 kg Intake: IV 1214 1008 624 0.9% .Pressure Bag 39 33 24 DAPTOmycin 1,000 mg In 50 Sodium Chloride 0.9% 50 ml @ 100 mls/hr IVPB Q24H [facility] Rx#:[id number] Piperacillin-Tazobactam 3 200 100 100 .375 gm In Sodium Chloride 0.9% 100 ml @ 25 mls/hr IVPB Q8HR [facility] Rx# :[id number] Sodium Chloride 0.9% 1, 975 825 500 000 ml @ 75 mls/hr IV . [id number] [facility] Rx#:[id number] Intake, IV Titration 200 Amount Propofol 1,000 mg In 200 Empty Bag 1 bag @ Titrate IV .Q0M [facility] Rx#: [id number] Oral 1080 250 Output: Urine 924 506 3349 Other: Voiding Method Indwelling Catheter Indwelling Catheter Indwelling Catheter # Voids 1 ABP, PAP, CO, CI - Last Documented Arterial Blood Pressure 168/89 - Exam Morbidly obese, comfortable likely distress. Extubated for now currently on 4 L of oxygen by nasal cannula. Head exam was generally normal. There was no scleral icterus or corneal arcus. Mucous membranes were moist. Neck was supple and without jugular venous distension, thyromegaly, or carotid bruits. Carotids were easily palpable bilaterally. There was no adenopathy. Lungs were clear to auscultation and percussion, and with normal diaphragmatic excursion. No wheezes or rales were noted. Cardiac exam revealed the PMI to be normally situated and sized. The rhythm was regular and no extrasystoles were noted during several minutes of auscultation. The first and second heart sounds were normal and physiologic splitting of the second heart sound was noted. There were no murmurs, rubs, clicks, or gallops. Abdomen is obese and the patient's organs cannot be accurately palpated. There is no direct tenderness or rebound tensile guarding. Extremities are showing some degree of swelling and there is 1 pitting edema. No cyanosis or clubbing. The perianal area shows postsurgical changes the patient has his scrotal area incised and packed. There is obvious area of cellulitis and warmth and erythema extending from the scrotal area into the right inguinal extending to the right lateral abdominal wall to the flank area. The area was marked. There is also evidence of yeast infection within the skin folds. There is foul smell. Another abscess were identified and the right buttock cheek perianally which is being controlled and it extends all the way to the scrotal area. - Labs CBC & Chem 7: 04/04/18 04:17 04/04/18 04:17 Labs: Abnormal Lab Results - Last 24 Hours (Table) 04/03/18 04/04/18 04/04/18 Range/Units 18:27 01:00 04:17 WBC 19.5 H (3.8-10.6) k/uL RBC 4.16 L (4.30-5.90) m/uL Hgb 12.6 L (13.0-17.5) gm/dL MCHC 30.8 L (31.0-37.0) g/dL Neutrophils # 17.4 H (1.3-7.7) k/uL ABG pO2 (83-108) mmHg ABG O2 Saturation (94-97) % Carbon Dioxide (22-30) mmol/L BUN (9-20) mg/dL Creatinine (0.66-1.25) mg/dL Glucose (74-99) mg/dL POC Glucose (mg/dL) 134 H 146 H (75-99) mg/dL Phosphorus (2.5-4.5) mg/dL Magnesium (1.6-2.3) mg/dL Total Protein (6.3-8.2) g/dL Albumin (3.5-5.0) g/dL 04/04/18 04/04/18 04/04/18 Range/Units 04:17 06:36 07:54 WBC (3.8-10.6) k/uL RBC (4.30-5.90) m/uL Hgb (13.0-17.5) gm/dL MCHC (31.0-37.0) g/dL Neutrophils # (1.3-7.7) k/uL ABG pO2 58 L* (83-108) mmHg ABG O2 Saturation 89.0 L (94-97) % Carbon Dioxide 21 L (22-30) mmol/L BUN 100 H (9-20) mg/dL Creatinine 3.25 H (0.66-1.25) mg/dL Glucose 124 H (74-99) mg/dL POC Glucose (mg/dL) 114 H (75-99) mg/dL Phosphorus 7.3 H (2.5-4.5) mg/dL Magnesium 2.4 H (1.6-2.3) mg/dL Total Protein 5.7 L (6.3-8.2) g/dL Albumin 2.4 L (3.5-5.0) g/dL 04/04/18 Range/Units 12:01 WBC (3.8-10.6) k/uL RBC (4.30-5.90) m/uL Hgb (13.0-17.5) gm/dL MCHC (31.0-37.0) g/dL Neutrophils # (1.3-7.7) k/uL ABG pO2 (83-108) mmHg ABG O2 Saturation (94-97) % Carbon Dioxide (22-30) mmol/L BUN (9-20) mg/dL Creatinine (0.66-1.25) mg/dL Glucose (74-99) mg/dL POC Glucose (mg/dL) 128 H (75-99) mg/dL Phosphorus (2.5-4.5) mg/dL Magnesium (1.6-2.3) mg/dL Total Protein (6.3-8.2) g/dL Albumin (3.5-5.0) g/dL Microbiology - Last 24 Hours (Table) 04/02/18 00:49 Gram Stain - Preliminary Groin Wound Culture - Preliminary Proteus mirabilis Gram Neg Bacilli 04/02/18 00:49 Gram Stain - Final Other - Other Wound Culture - Final Proteus mirabilis Enterococcus faecalis 04/01/18 03:40 Gram Stain - Final Other - Other Wound Culture - Final Proteus mirabilis 04/01/18 03:40 Anaerobic Culture - Preliminary Scrotum 04/02/18 01:15 Gram Stain - Final Sputum Sputum Culture - Final Haemophilus influenzae 04/02/18 03:42 Blood Culture - Preliminary Blood No Growth after 48 hours 04/01/18 20:05 Blood Culture - Preliminary Blood No Growth after 48 hours 04/01/18 18:57 Blood Culture - Preliminary Blood No Growth after 48 hours 04/02/18 06:00 Urine Culture - Final Urine,Catheterized Assessment and Plan Plan: Assessment 1 Murali's gangrene/necrotizing fasciitis with secondary sepsis , the patient is post debridement growing a combination of Proteus and enterococcus faecalis. Furthermore, the patient was found to have a perianal abscess on today's evaluation. The area is being controlled and needs an extension reaching to the scrotal area. As such, general surgery was consulted and the patient will need further debridement. Also, the patient would benefit from a diverticular colostomy based on his underlying complication to prevent any further contamination to his rectal and perineal area with stool. Currently is hemodynamic stable and IV antibiotics. Undergoing daily debridement by urology of the scrotal area. 2 sepsis secondary to above 3 acute hypoxic respiratory failure secondary to above, the patient required intubation mechanical ventilation. The patient is currently is extubated. Currently on 4 of oxygen nasal cannula. 4 diabetes mellitus type 2, essentially poorly controlled on outpatient basis 5 chronic renal failure, consider diabetic nephropathy 6 wilmer infection of the skin folds 7 morbidly obesity with a BMI of 55 8 leukocytosis secondary to above MARK The patient was extubated. Nevertheless, the patient will need aggressive antibiotics and debridement. Furthermore the patient would need debridement of the perianal abscess which is extending all the way to the scrotum. The patient will need a diverting colostomy that will be done tomorrow by general surgery. He may need to be intubated during the procedure and would need also close pulmonary care knowing that his morbidly obese. He has Haemophilus influenza in his sputum which is probably a colonizer. His renal function stable. White cell count remains elevated. He remains on IV Zosyn. Infectious disease on the case. DVT and GI prophylaxis. O2 control. We'll continue to follow.
[2018-04-04 18:38] LABS: Glucose,Whole Blood 118 mg/dL (75-99)
--- NOTE | 2018-04-04 19:24 | PN ---
PROGRESS NOTE DATE OF SERVICE: 04/04/2018 PRESENTING COMPLAINT: Tired. INTERVAL HISTORY: This patient has been neglecting himself at home, presents with multiple medical problems including Murali's gangrene, necrotizing fasciitis of the scrotum, COPD exacerbation, severe Tracy infection in skin folds, acute renal failure. The patient was extubated on 04/03/2018. 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 Further debridement was carried out by Dr. Palm. The patient remains in the ICU. Tired. REVIEW OF SYSTEMS: Done for constitutional, cardiovascular, GI, pulmonary and relevant findings as above. CURRENT MEDICATIONS: Current medications are reviewed include DuoNeb, inhaled Pulmicort, PhosLo, Dilaudid, Lopressor, nystatin powder, IV Protonix, IV Zosyn, Dakin solution. PHYSICAL EXAMINATION: VITAL SIGNS: Temperature 97, pulse 98, respirations 29, blood pressure 130/93, pulse ox 95% on nasal cannula. GENERAL APPEARANCE: Lying in bed, awake, tired. EYES: Pupils equal. Conjunctivae normal. HEENT: External appearance of nose and ears normal. Oral cavity normal. NECK: JVD unable to assess. Mass not palpable. RESPIRATORY: Effort increased. LUNGS: Diminished breath sounds. CARDIOVASCULAR: Heart sounds muffled, some edema. ABDOMEN: Distended, soft. Liver and spleen not palpable. GENITOURINARY: There is breakdown of the skin of the scrotum. Scrotum with severe areas of inflammation and infection. PSYCHIATRY: The patient is able answer simple questions. INVESTIGATIONS: White count 19.5, hemoglobin 12.6, potassium 3.6, BUN 100, creatinine 3.25. Microbiology: Sputum is showing Haemophilus influenzae, Gram stain from the scrotal wound is growing Proteus mirabilis and Enterococcus faecalis. ASSESSMENT: 1. Acute Murali's gangrene with necrotizing fasciitis of both scrotum, status post repeat I and D with cultures growing Enterococcus faecalis, Proteus mirabilis causing sepsis, POA. 2. Morbid obesity, BMI 49.6 from excessive calorie intake. 3. Acute chronic obstructive pulmonary disease exacerbation in a current smoker. 4. Chronic nicotine dependence, patient an active cigarette smoker. 5. Severe Tracy infection, intertriginous with secondary bacterial infection of the groin folds. 6. Acute tubular necrosis causing acute kidney injury from sepsis and probably from Motrin. 7. Hypoalbuminemia, probably an acute phase reactant. 8. Troponin leak from renal failure. 9. Obesity hypoventilation syndrome. 10.Acute hypoxic respiratory failure secondary to chronic obstructive pulmonary disease, status post ventilator support. 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 PLAN: The patient is assessed by Dr. Palm from Urology and he discussed with Dr. Ladd. He will probably take the patient to the OR tomorrow for diverting colostomy. The patient's wound is covered being taken care of by Dakin solution. Will need to probably add Flagyl and vancomycin for antibiotic coverage. We will discuss with Dr. Santos from ID. Prognosis guarded. MMODL / IJN: [id number] /
[2018-04-04] MEDS ORDERED: cloNIDine HCL 0.1 MG TAB PO PRN (23:16)
--- NOTE | 2018-04-04 23:39 | PN ---
PROGRESS NOTE DATE OF SERVICE: 04/04/2018. REASON FOR FOLLOWUP: Murali's gangrene. INTERVAL HISTORY: The patient is currently afebrile. He has been breathing comfortably. Patient denies having any chest pain, shortness of breath or cough. The patient also noticed to have an abscess draining close to his rectal area with concern for possible colocutaneous fistula. General Surgery has been consulted. PHYSICAL EXAMINATION: Blood pressure is 118/100, pulse of 90, temperature is 97.8, he is 96% on 4 L nasal cannula. GENERAL DESCRIPTION: A middle-aged male lying in bed in no distress. RESPIRATORY SYSTEM: Unlabored breathing. Clear to auscultation anteriorly. HEART: S1, S2. Regular rate and rhythm. RECTAL: Culture wound is currently dressed up. No foul smelling drainage. LABS: Hemoglobin 12, white count of 19.5 with a BUN of 100, creatinine 3.25. Wound culture with Proteus mirabilis and strep faecalis, no resistant gram positive. DIAGNOSTIC IMPRESSION AND PLAN: Patient with Murali's gangrene, admitted to the hospital with sepsis, now with concern for possible perirectal abscess versus a ____. General surgery has been consulted for surgical debridement of this and possible debridement of his scrotal wound. Local care to continue with the Dakin solution. We will keep the patient on Zosyn as no resistant blood culture has been grown. Daptomycin will be discontinued. Monitoring his clinical course closely. Continue supportive care. Prognosis remains to be guarded. MMODL / IJN: [id number] /
[2018-04-04] MEDS: metroNIDAZOLE-NS PMX 500 MG in SALINE 1 100ML.BAG IVPB SCH (23:52)
[2018-04-04] MEDS ORDERED: IPRATROPIUM-ALBUTEROL 3 ML NEB INHALATION PRN (23:53)
[2018-04-05] MEDS: INSULIN ASPART (NovoLOG) 100 UNIT/ML VIAL SQ SCH ×3 (00:09→20:05)
[2018-04-05 00:53] LABS: Glucose,Whole Blood 121 mg/dL (75-99)
[2018-04-05] MEDS: PIPERACILLIN-TAZOBACTAM 3.375 GM in SODIUM CHLORIDE 0.9% 100 ML IVPB SCH ×3 (02:05→18:00)
[2018-04-05] MEDS ORDERED: cloNIDine HCL 0.1 MG TAB PO PRN (04:13)
[2018-04-05 04:42] LABS: Basophils # (A) 0.1 k/uL (0-0.2); Basophils % (A) 0 %; Eosinophils # (A) 0.2 k/uL (0-0.7); Eosinophils % (A) 1 %; HCT 41.5 % (39.0-53.0); HGB 12.4 gm/dL (13.0-17.5); Hypochromasia Moderate; Lymphocytes # (A) 1.3 k/uL (1.0-4.8); Lymphocytes % (A) 8 %; MCH 29.6 pg (25.0-35.0); MCHC 29.8 g/dL (31.0-37.0); MCV 99.1 fL (80.0-100.0); Macrocytosis Slight; Monocytes # (A) 0.5 k/uL (0-1.0); Monocytes % (A) 3 %; Neutrophils # (A) 14.3 k/uL (1.3-7.7); Neutrophils % (A) 87 %; Platelet Count 311 k/uL (150-450); RBC 4.19 m/uL (4.30-5.90); RDW 15.3 % (11.5-15.5); WBC 16.4 k/uL (3.8-10.6)
[2018-04-05 05:07] LABS: Calcium 8.4 mg/dL (8.4-10.2); Magnesium 2.3 mg/dL (1.6-2.3); Phosphorus 5.9 mg/dL (2.5-4.5); Potassium 3.4 mmol/L (3.5-5.1)
[2018-04-05 06:19] LABS: Glucose,Whole Blood 110 mg/dL (75-99)
[2018-04-05] MEDS: SODIUM CHLORIDE 0.9% 1,000 ML IV SCH ×2 (06:37→18:00)
[2018-04-05] MEDS: metroNIDAZOLE-NS PMX 500 MG in SALINE 1 100ML.BAG IVPB SCH ×3 (06:41→19:10)
[2018-04-05] MEDS ORDERED: Potassium Replacement Protocol 1 EACH MISC MISCELLANE PRN (06:52)
[2018-04-05] MEDS ORDERED: POTASSIUM CHLORIDE ER 20 MEQ TAB.ER PO SCH ×2 (07:00→07:45)
[2018-04-05] MEDS: BUDESONIDE 1 MG/2 ML NEBU INHALATION SCH ×2 (07:20→19:43)
[2018-04-05] MEDS: IPRATROPIUM-ALBUTEROL 3 ML NEB INHALATION SCH ×4 (07:20→19:43)
--- NOTE | 2018-04-05 08:22 | PN ---
PROGRESS NOTE Mr. 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 He has chronic kidney disease, hypertension and diabetes with morbid obesity. 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 He is feeling well this morning. He is denying any chest pain. He denies any dizziness. He continued be in sinus mechanism. He had episode of hypertension. He has no ventricular ectopic activity. His urine output is stable. He continues on aspirin, metoprolol tartrate 25 mg twice a day. PHYSICAL EXAMINATION: Blood pressure running in the 160s/100 with a heart rate in the 80s. LUNGS: Clear. HEART: Regular rate and rhythm, S1, S2. No S3 with a systolic murmur at the base, no diastolic murmur. ABDOMEN: Soft obese and mild tenderness, erythema noted on the lower abdomen. EXTREMITIES: +2 edema with chronic skin changes. LAB DATA: Revealed BUN and creatinine 97 and 2.71, potassium 3.4, hemoglobin of 12.4, white blood cell of 16.4. Chest x-ray shows mild congestion. IMPRESSION: 1. Progressive dyspnea, multifactorial. 2. Murali's gangrene with a perirectal abscess. 3. Hypertension. 4. Chronic disease. 5. Morbid obesity. 6. Diabetes mellitus. RECOMMENDATION: Patient will undergo most likely diverting colostomy today. I will adjust his antihypertensive regimen and depending on his progress, further recommendation will be made. MMODL / IJN: [id number] /
--- NOTE | 2018-04-05 08:22 | XR ---
EXAMINATION TYPE: XR chest 1V DATE OF EXAM: 04/05/2018 COMPARISON: 04/04/2018 INDICATION: Mechanical ventilation. No other history is provided TECHNIQUE: Single frontal view of the chest is obtained. FINDINGS: The heart size is normal. The pulmonary vasculature is normal. The lungs are clear. IMPRESSION: 1. No acute pulmonary process.
--- NOTE | 2018-04-05 08:56 | P.PN ---
Progress Note - Text Progress Note Date: 04/05/18 Mr. Sandhu is awake and alert this morning. His temperature is 99.8 degrees. The scrotal wound was examined. The remaining skin appears to be viable. There appears to be a small amount of necrotic subcutaneous tissue. The erythema extending to the right groin appears somewhat improved, and the skin appears viable without crepitus or fluctuance. The erythema on the left side has essentially resolved. Cultures have shown Proteus and enterococcus. Dr. Villegas intends to perform a diverting colostomy today, and he will perform whatever scrotal debridement is necessary at that time.
[2018-04-05] MEDS: SODIUM HYPOCHLORITE 0.25% 480 ML BOT MISCELLANE SCH ×2 (10:29→21:42)
[2018-04-05] MEDS: POTASSIUM CHLORIDE 20 MEQ in WATER FOR INJECTION 1 100ML.BAG IVPB SCH ×2 (10:39→15:00)
[2018-04-05] MEDS: HEPARIN SODIUM,PORCINE 5,000 UNIT/ML 1 ML VIAL SQ SCH ×2 (10:59→18:12)
[2018-04-05] MEDS: PANTOPRAZOLE 40 MG/10 ML VIAL IV SCH (10:59)
[2018-04-05] MEDS: NYSTATIN 100,000 UNIT/GM POWD 15 GM TOPICAL SCH ×2 (10:59→21:42)
[2018-04-05 12:02] LABS: Glucose,Whole Blood 108 mg/dL (75-99)
[2018-04-05] MEDS ORDERED: SODIUM CHLORIDE 0.9% 1,000 ML IV ONE (12:44)
--- NOTE | 2018-04-05 13:02 | P.GSCN ---
History of Present Illness Consult date: 04/04/18 Reason for Consult: Diverting colostomy, Murali's gangrene History of present illness: This a 47-year-old male who underwent recent debridement of his scrotum for Murali's gangrene. Patient has extensive devitalized tissue extending towards his anus. I been asked to see him for a diverting colostomy. Past Medical History Past Medical History: Diabetes Mellitus Additional Past Medical History / Comment(s): Morbid obesity, diabetes mellitus , chronic renal failure History of Any Multi-Drug Resistant Organisms: None Reported Past Surgical History: Tonsillectomy Additional Past Surgical History / Comment(s): hand surgery, Smoking Status: Current every day smoker - Past Family History Mother Family Medical History: Renal Disease Additional Family Medical History / Comment(s): lasik eye surgery Father Family Medical History: Myocardial Infarction ([place]) Additional Family Medical History / Comment(s): lasik eye surgery Medications and Allergies Home Medications Medication Instructions Recorded Confirmed Type Ibuprofen [Motrin Ib] 600 mg PO Q8HR 03/31/18 03/31/18 History Allergies Allergy/AdvReac Type Severity Reaction Status Date / Time No Known Allergies Allergy Unverified 03/31/18 21:28 Surgical - Exam Vital Signs Temp Pulse Resp BP Pulse Ox 98.7 F 126 H 24 152/102 94 L 03/31/18 21:12 03/31/18 21:12 03/31/18 21:12 03/31/18 21:12 03/31/18 21:12 - General well developed, moderate distress - Eyes PERRL - ENT normal pinna - Neck no masses - Respiratory normal expansion - Cardiovascular Rhythm: regular - Abdomen Obese, BMI 55 Abdomen: soft, non tender - Genitourinary History of Murali's gangrene with debridement of scrotum Results - Labs 04/05/18 04:20 04/05/18 04:20 Abnormal Lab Results - Last 24 Hours (Table) 04/04/18 04/05/18 04/05/18 Range/Units 18:08 00:06 04:20 WBC 16.4 H (3.8-10.6) k/uL RBC 4.19 L (4.30-5.90) m/uL Hgb 12.4 L (13.0-17.5) gm/dL MCHC 29.8 L (31.0-37.0) g/dL Neutrophils # 14.3 H (1.3-7.7) k/uL Potassium (3.5-5.1) mmol/L BUN (9-20) mg/dL Creatinine (0.66-1.25) mg/dL Glucose (74-99) mg/dL POC Glucose (mg/dL) 118 H 121 H (75-99) mg/dL Phosphorus (2.5-4.5) mg/dL 04/05/18 04/05/18 04/05/18 Range/Units 04:20 06:07 11:51 WBC (3.8-10.6) k/uL RBC (4.30-5.90) m/uL Hgb (13.0-17.5) gm/dL MCHC (31.0-37.0) g/dL Neutrophils # (1.3-7.7) k/uL Potassium 3.4 L (3.5-5.1) mmol/L BUN 97 H (9-20) mg/dL Creatinine 2.71 H (0.66-1.25) mg/dL Glucose 122 H (74-99) mg/dL POC Glucose (mg/dL) 110 H 108 H (75-99) mg/dL Phosphorus 5.9 H (2.5-4.5) mg/dL Microbiology - Last 24 Hours (Table) 04/02/18 00:49 Anaerobic Culture - Final Scrotum 04/02/18 00:49 Anaerobic Culture - Final Scrotum 04/02/18 00:49 Gram Stain - Final Groin Wound Culture - Final Proteus mirabilis Enterococcus faecalis Escherichia coli 04/01/18 03:40 Anaerobic Culture - Final Scrotum 04/02/18 03:42 Blood Culture - Preliminary Blood No Growth after 72 hours 04/01/18 20:05 Blood Culture - Preliminary Blood No Growth after 72 hours 04/01/18 18:57 Blood Culture - Preliminary Blood No Growth after 72 hours 04/02/18 00:49 Gram Stain - Final Other - Other Wound Culture - Final Proteus mirabilis Enterococcus faecalis 04/01/18 03:40 Gram Stain - Final Other - Other Wound Culture - Final Proteus mirabilis 04/02/18 01:15 Gram Stain - Final Sputum Sputum Culture - Final Haemophilus influenzae Diabetes panel 04/05/18 Range/Units 04:20 Sodium 139 (137-145) mmol/L Potassium 3.4 L (3.5-5.1) mmol/L Chloride 106 (98-107) mmol/L Carbon Dioxide 22 (22-30) mmol/L BUN 97 H (9-20) mg/dL Creatinine 2.71 H (0.66-1.25) mg/dL Glucose 122 H (74-99) mg/dL Calcium 8.4 (8.4-10.2) mg/dL Calcium panel 04/05/18 Range/Units 04:20 Calcium 8.4 (8.4-10.2) mg/dL Phosphorus 5.9 H (2.5-4.5) mg/dL Pituitary panel 04/05/18 Range/Units 04:20 Sodium 139 (137-145) mmol/L Potassium 3.4 L (3.5-5.1) mmol/L Chloride 106 (98-107) mmol/L Carbon Dioxide 22 (22-30) mmol/L BUN 97 H (9-20) mg/dL Creatinine 2.71 H (0.66-1.25) mg/dL Glucose 122 H (74-99) mg/dL Calcium 8.4 (8.4-10.2) mg/dL Adrenal panel 04/05/18 Range/Units 04:20 Sodium 139 (137-145) mmol/L Potassium 3.4 L (3.5-5.1) mmol/L Chloride 106 (98-107) mmol/L Carbon Dioxide 22 (22-30) mmol/L BUN 97 H (9-20) mg/dL Creatinine 2.71 H (0.66-1.25) mg/dL Glucose 122 H (74-99) mg/dL Calcium 8.4 (8.4-10.2) mg/dL Assessment and Plan Assessment: 4. Gangrene. We'll perform diverting colostomy.
--- NOTE | 2018-04-05 13:42 | P.PN ---
Subjective Progress Note Date: 04/05/18 Principal diagnosis: Murali"s gangrene, necrotizing fasciitis and sepsis This is a 47-year-old morbidly obese male patient, who has not had any regular follow-up on his healthcare, which is diabetic and he presented to the hospital because of necrotizing fasciitis of the scrotum. The patient has been feeling sick. He was having dull aching pain in the scrotal area along with red discoloration in the scrotal area and the perianal area extending to the right lower abdominal fold all the way up to his right lateral abdominal wall. At the same time there was foul smelling drainage. He denies having any high- grade fever. He was experiencing some shortness of breath. He came in with a white cell count of 19,000. Immediately, he had a urology consultation the patient was taken to the operating room where he underwent scrotal exploration with debridement of the necrotic scrotal skin. There was an infection that was tracking superiorly into the right inguinal region and inferiorly to the dependent portion of the scrotum. Postop, the patient was kept intubated and the patient was brought into the ICU for further care. On 04/05/2018, patient remains in the intensive care unit, he is on 5 L nasal cannula, O2 saturation is in the 93% range, patient denies any shortness of breath, no cough, no wheezing, denies any chest pain. Patient is scheduled to undergo diaphoretic colostomy today, and he will likely have further debridement of the scrotal area which will be done by either general surgery or urology or possibly both. Apparently there was a concern about a fistula from the GI tract contributing to his initial presentation of severe necrotizing fasciitis and abscesses. Patient had a combination of Proteus and enterococcus faecalis. his sputum was positive for Haemophilus influenza. Continues to have leukocytosis with WBC of 16.4. Renal functioning is improving, creatinine is down to 2.71 BUN is 97. Objective - Vital Signs Vital signs: Vital Signs Temp 98.5 F 04/05/18 12:00 Pulse 95 04/05/18 12:00 Resp 14 04/05/18 12:00 BP 161/92 04/05/18 12:00 Pulse Ox 93 L 04/05/18 12:00 Intake & Output 04/04/18 04/05/18 04/05/18 18:59 06:59 18:59 Intake Total 1161 636 212 Output Total 1662029 625 Balance -499 -1394 -413 Weight 201.3 kg Intake: IV 911 636 62 0.9% .Pressure Bag 36 36 12 Piperacillin-Tazobactam 3 175 .375 gm In Sodium Chloride 0.9% 100 ml @ 25 mls/hr IVPB Q8HR [facility] Rx# :[id number] Sodium Chloride 0.9% 1, 700 600 50 000 ml @ 75 mls/hr IV . [id number] [facility] Rx#:[id number] Intake, IV Titration 150 Amount Sodium Chloride 0.9% 1, 150 000 ml @ 50 mls/hr IV . Q20H [facility] Rx#:[id number] Oral 250 Output: Urine 1659 2029 625 Other: Voiding Method Indwelling Catheter Indwelling Catheter # Voids 1 1 ABP, PAP, CO, CI - Last Documented Arterial Blood Pressure 164/93 - Exam Physical Exam: Revealed a morbidly obese 47-year-old white male on 5 L nasal cannula. In no distress. Head: Atraumatic, normocephalic. HEENT:[Neck is supple.] [No neck masses.] [No thyromegaly.] [No JVD.] PERRLA, EOMI, moist mucous membranes. Chest: [Clear throughout, no crackles, no rhonchi, no wheezes.] Symmetrical chest expansion, no chest wall tenderness. Cardiac Exam: [Normal S1 and S2, no S3 gallop, no murmur.] Abdomen: [Obese, Soft, nontender, no megaly, no rebound, no guarding, normal bowel sounds.] Extremities: [No clubbing, 1+ bipedal edema, no cyanosis.] Neurological Exam: [No focal neurologic deficit.] The perianal area was noted to have postsurgical changes, scrotal area noted to be incised and packed, there is evidence of significant cellulitis, erythema, extending from the scrotal area into the right inguinal area extending into the right lateral abdominal wall and to the flank area. Noted to be foul-smelling. This is being addressed by surgery and urology. Psychiatric: Normal mood, affect and mental status examination. Lymphatics: No lymphadenopathy. - Labs CBC & Chem 7: 04/05/18 04:20 02/11/19 04:20 Labs: Abnormal Lab Results - Last 24 Hours (Table) 04/04/18 04/05/18 04/05/18 Range/Units 18:08 00:06 04:20 WBC 16.4 H (3.8-10.6) k/uL RBC 4.19 L (4.30-5.90) m/uL Hgb 12.4 L (13.0-17.5) gm/dL MCHC 29.8 L (31.0-37.0) g/dL Neutrophils # 14.3 H (1.3-7.7) k/uL Potassium (3.5-5.1) mmol/L BUN (9-20) mg/dL Creatinine (0.66-1.25) mg/dL Glucose (74-99) mg/dL POC Glucose (mg/dL) 118 H 121 H (75-99) mg/dL Phosphorus (2.5-4.5) mg/dL 04/05/18 04/05/18 04/05/18 Range/Units 04:20 06:07 11:51 WBC (3.8-10.6) k/uL RBC (4.30-5.90) m/uL Hgb (13.0-17.5) gm/dL MCHC (31.0-37.0) g/dL Neutrophils # (1.3-7.7) k/uL Potassium 3.4 L (3.5-5.1) mmol/L BUN 97 H (9-20) mg/dL Creatinine 2.71 H (0.66-1.25) mg/dL Glucose 122 H (74-99) mg/dL POC Glucose (mg/dL) 110 H 108 H (75-99) mg/dL Phosphorus 5.9 H (2.5-4.5) mg/dL Microbiology - Last 24 Hours (Table) 04/02/18 00:49 Anaerobic Culture - Final Scrotum 04/02/18 00:49 Anaerobic Culture - Final Scrotum 04/02/18 00:49 Gram Stain - Final Groin Wound Culture - Final Proteus mirabilis Enterococcus faecalis Escherichia coli 04/01/18 03:40 Anaerobic Culture - Final Scrotum 04/02/18 03:42 Blood Culture - Preliminary Blood No Growth after 72 hours 04/01/18 20:05 Blood Culture - Preliminary Blood No Growth after 72 hours 04/01/18 18:57 Blood Culture - Preliminary Blood No Growth after 72 hours 04/02/18 00:49 Gram Stain - Final Other - Other Wound Culture - Final Proteus mirabilis Enterococcus faecalis 04/01/18 03:40 Gram Stain - Final Other - Other Wound Culture - Final Proteus mirabilis 04/02/18 01:15 Gram Stain - Final Sputum Sputum Culture - Final Haemophilus influenzae Assessment and Plan Assessment: Impression: 1 Murali's gangrene/necrotizing fasciitis with secondary sepsis, patient is status post debridement, that debrided tissue was positive for Proteus and enterococcus faecalis. Patient is scheduled for diet diverting colostomy to be done today. The purpose is to prevent further contamination from the rectal area. And from what seems to be fistulization to the perianal area. 2 acute sepsis secondary to above 3 acute hypoxic respiratory failure secondary to above and mostly secondary to sepsis 4 acute on chronic kidney injury, most likely secondary to sepsis 5 morbid obesity 6 type 2 diabetes poorly controlled on outpatient basis. Recommendation: Discussed the patient's condition with the surgeon on the case, he will be going for diverticulitis colostomy, and more debridement to be done today. The patient will likely come back on mechanical ventilation, we will continue in the meantime present antibiotics, continue bronchodilators, prognosis is definitely guarded, we'll continue to follow closely, infectious disease is also following the case and recommending antibiotics accordingly. Time with Patient: Less than 30
[2018-04-05] MEDS: PROPOFOL 1,000 MG in EMPTY BAG 1 BAG IV SCH ×5 (14:30→22:02)
[2018-04-05] MEDS: CALCIUM ACETATE 667 MG CAP PO SCH ×2 (15:09→18:12)
--- NOTE | 2018-04-05 15:19 | PN ---
PROGRESS NOTE Patient is seen for followup for acute kidney injury. He is currently going back for debridement again. The patient did have debridement over the weekend as well. He is extubated. He is comfortable, not in any acute distress. Currently not on any pressors. IV fluids are running at 50 mL an hour. Patient has good urine output at about 75-150 mL/hours. PHYSICAL EXAMINATION: Patient is sleepy and he is not in any acute distress. Blood pressure this morning was 157/91, heart rate 92 per minute. He is afebrile. Examination of the heart S1, S2. Examination of the lungs bilateral breath sounds are heard. Abdomen is soft, morbidly obese, nontender. Examination of the lower extremities shows chronic skin changes. Trace edema is noted. Scrotal area is not examined. LABS: Sodium 139, potassium 3.4, hemoglobin 12.4, white cell count 16.4 g/dL, phosphorus 5.9. ASSESSMENT: 1. Acute kidney injury, acute tubular necrosis, currently nonoliguric and improving. May continue with fluids at 50 mL an hour. 2. Hypokalemia. We will replace. 3. Murali's gangrene status post multiple debridements, maintained on antibiotics. 4. Acute hypoxic and hypercapnic respiratory failure, status post extubation. PLAN: Replace potassium. Continue saline at 50 mL an hour. Repeat labs in a.m. and continue to avoid nephrotoxic agents. MMODL / IJN: [id number] /
[2018-04-05 16:55] LABS: ABG Base Excess -3.8 mmol/L; ABG HCO3 22 mmol/L (21-25); ABG Oxygen Saturation 99.1 % (94-97); ABG PCO2 44 mmHg (35-45); ABG PH 7.32 (7.35-7.45); ABG PO2 158 mmHg (83-108); ABG TCO2 24 mmol/L (19-24)
[2018-04-05 17:03] LABS: Glucose,Whole Blood 120 mg/dL (75-99)
[2018-04-05] MEDS: ASPIRIN 81 MG PO SCH (17:20)
[2018-04-05] MEDS: METOPROLOL TARTRATE 50 MG TAB PO SCH ×2 (17:21→21:29)
--- NOTE | 2018-04-05 18:01 | PN ---
PROGRESS NOTE DATE OF SERVICE: April 05, 2018. PRESENTING COMPLAINT: Intubated. INTERVAL HISTORY: This is a patient who has been neglecting his health at home, presented with multiple medical problems including Murali's gangrene, necrotizing fasciitis, of the scrotum, COPD exacerbation, severe Tracy infection in the skin folds, acute renal failure. The patient was initially intubated and extubated on 04/03/2018. 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 Was taken to the OR today with Dr. Ladd. A diverting colostomy was done. The patient returns now back on the ventilator. at the bedside. REVIEW OF SYSTEMS: Patient intubated. CURRENT MEDICATIONS: Current medications reviewed that include DuoNeb, aspirin, Pulmicort, PhosLo, Lopressor , Flagyl, IV Zosyn, Dakin solution. PHYSICAL EXAMINATION: VITAL SIGNS: Temperature 98.5, pulse 95, respiration 14, blood pressure 160/92, pulse ox 93 percent on nasal cannula. GENERAL APPEARANCE: Lying in bed. Intubated. EYES: Pupils equal. Conjunctivae normal. Neck: JVD unable to assess. Mass not palpable. RESPIRATORY: Effort increased. LUNGS: Distant breath sounds. CARDIOVASCULAR: Heart sounds muffled. Some edema. Abdomen distended. Colostomy bag in place. Soft. No guarding or rigidity. Genitourinary: Breakdown of the scrotal skin with a dressing in place. PSYCHIATRY: Cannot really assess. INVESTIGATIONS: White count 16.4, hemoglobin 12.4, potassium 3.4, BUN 97, creatinine 2.71. ASSESSMENT: 1. Acute Murali's gangrene with necrotizing fascia to both the scrotums, status post I and D with cultures growing Enterococcus faecalis, Pseudomonas, Proteus mirabilis and causing sepsis, POA. 2. Morbid obesity BMI 49.6 from excessive calorie intake. 3. Acute chronic obstructive pulmonary disease exacerbation in a current smoker. 4. Chronic nicotine dependence, patient active cigarette smoker. 5. Severe Tracy infection intertriginous with secondary back infection of the groin folds. 6. Acute tubular necrosis causing acute kidney injury from sepsis and probably from patient being on Motrin with some improvement. 7. Hypoalbuminemia probably an acute phase reactant. 8. Troponin leak from renal failure. 9. Obesity hypoventilation syndrome. 10.Acute hypoxic respiratory failure secondary to chronic obstructive pulmonary disease exacerbation. The patient initially was on ventilator, currently back on the ventilator following surgery. 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 The patient today had a diverting colostomy. PLAN: Continue current medication and treatment plan. I spoke to the at the bedside. Prognosis remains guarded. Continue with broad-spectrum antibiotics and local care. Hopefully patient should be able to be extubated tomorrow. Multiple consultants on the case to follow. MMGERALDOL / IJN: [id number] /
--- NOTE | 2018-04-05 18:10 | P.OP ---
Date of Procedure: 04/05/18 Preoperative Diagnosis: Murali's gangrene Postoperative Diagnosis: Murali's gangrene Procedure(s) Performed: Diverting loop colostomy Repair of incarcerated ventral hernia Partial omentectomy Debridement of scrotum Anesthesia: LEONIDAS Surgeon: Jackson Ladd Estimated Blood Loss (ml): 20 Pathology: other (Incarcerated omentum, debridement of scrotum) Condition: critical Disposition: ICU Description of Procedure: The patient's placed on the operating table in the supine position. He received general anesthesia. His abdomen was prepped and draped in usual sterile fashion. An upper midline incision was made and then using electrocautery the subcutaneous tissues were divided. There was a and incarcerated ventral hernia noted just above the umbilicus. The fascia was then divided in the midline. The incarcerated omentum was transected with the Enseal device and sent to pathology. The transverse colon was visualized and brought up in the wound. The omentum was dissected off the transverse colon. A window was made in the mesentery of the transverse colon and then a Heri drain was placed around the transverse colon. A suitable spot for the Adalgisa was found in the right quadrant. The colostomy site was created using electrocautery and sharp dissection. And then the colon was brought up into the colostomy site. The fascia was closed with looped #1 PDS suture. 2 sutures were used to close the fascia. The ventral hernia was repaired during fascial closure. The skin was closed magali. The colostomy then matured with 3-0 Vicryl suture. Next the patient's scrotum was prepped and draped usual sterile fashion. There was significant ischemic tissue. The testicles are visualized. Using sharp dissection using a 15 blade and a Platt scissors and some necrotic tissue was removed. This was sent to pathology. There was significant soupy lugo tissue in the scrotum. Patient was sent back to the ICU in guarded condition.
--- NOTE | 2018-04-05 18:54 | XR ---
EXAMINATION: XR chest 1V portable DATE AND TIME: 04/05/2018 5:56 PM CLINICAL INDICATION: PHH; Tube placement TECHNIQUE: Departmental protocol COMPARISON: 04/05/2018 at 5:58 AM FINDINGS: Since the prior study the patient has been intubated, with the tip of the ET tube appearing to projec t 1 cm above the stacia. Left subclavian central line tip superimposed over the mid SVC. There is no evidence of pneumothorax on this AP portable semiupright radiograph. Elevated hemidiaphragms consistent with low lung inflation at the moment of x-ray exposure. The lungs appear clear and well expanded bilaterally. Moderately enlarged cardiac silhouette redemonstrated. IMPRESSION: POSTINTUBATION CHEST RADIOGRAPH DETAILED.
[2018-04-05] MEDS: hydrALAZINE HCL 25 MG TAB PO SCH ×2 (20:04→21:30)
[2018-04-05] MEDS: HYDROmorphone 1 MG/ML 1 ML SYRINGE IVP PRN (21:06)
[2018-04-05] MEDS ORDERED: METOPROLOL TARTRATE 5 MG/5 ML VIAL IVP ONE (21:30)
[2018-04-05] MEDS: CHLORHEXIDINE GLUCONATE 15 ML CUP MUCOUS MEM SCH (21:42)
[2018-04-06] MEDS: HYDROmorphone 1 MG/ML 1 ML SYRINGE IVP PRN ×4 (00:04→18:39)
[2018-04-06] MEDS: INSULIN ASPART (NovoLOG) 100 UNIT/ML VIAL SQ SCH ×4 (00:19→19:32)
[2018-04-06 00:22] LABS: Glucose,Whole Blood 119 mg/dL (75-99)
[2018-04-06] MEDS: PIPERACILLIN-TAZOBACTAM 3.375 GM in SODIUM CHLORIDE 0.9% 100 ML IVPB SCH ×4 (00:59→23:55)
[2018-04-06] MEDS: PROPOFOL 1,000 MG in EMPTY BAG 1 BAG IV SCH ×10 (01:42→22:07)
[2018-04-06] MEDS ORDERED: ACETAMINOPHEN IV (For NPO) 1,000 MG in EMPTY BAG 1 BAG IVPB PRN (04:46)
[2018-04-06 05:04] LABS: Glucose,Whole Blood 131 mg/dL (75-99)
[2018-04-06] MEDS: metroNIDAZOLE-NS PMX 500 MG in SALINE 1 100ML.BAG IVPB SCH ×5 (05:15→23:56)
--- NOTE | 2018-04-06 05:38 | PN ---
PROGRESS NOTE DATE OF SERVICE: 04/05/2018 REASON FOR FOLLOWUP: Murali's gangrene. INTERVAL HISTORY: The patient was taken to the OR. The patient is status post repair of incarcerated ventral hernia and diverting loop colostomy and further debridement of the scrotum. The patient is hemodynamically stable and has been running low-grade fever this evening. No other remains to be on the vent. PHYSICAL EXAMINATION: On examination, blood pressure 130/79 with a pulse of 88, temperature 100.8. He is 96% on 70% FiO2. General description is a middle aged male, intubated on the vent. RESPIRATORY SYSTEM: Unlabored breathing with decreased breath sounds at the bases. HEART: S1, S2. Regular rate and rhythm. ABDOMEN: Soft. Scrotal area still has significant wound with foul-smelling drainage. LABS: Hemoglobin 12.4, white count 16.4 with a BUN of 97, creatinine is 2.71. The scrotal culture has been Proteus mirabilis, Enterococcus faecalis and E coli. DIAGNOSTIC IMPRESSION AND PLAN: Patient with admission to the hospital with sepsis, source is Murali's gangrene, status post extensive debridement, also with evidence of possible status post diverting colostomy. The patient remains to be critically ill and is currently covered with Zosyn on the basis of culture organism he has grown. Continue local wound care as ordered. May benefit from a transfer to tertiary care because of his extensive wound and possible need for plastics. Plan of care discussed with surgeon. Continue supportive care. MMODL / IJN: [id number] /
[2018-04-06 05:44] LABS: Basophils # (A) 0.1 k/uL (0-0.2); Basophils % (A) 0 %; Eosinophils # (A) 0.1 k/uL (0-0.7); Eosinophils % (A) 1 %; HCT 42.4 % (39.0-53.0); HGB 12.5 gm/dL (13.0-17.5); Hypochromasia Marked; Lymphocytes # (A) 0.9 k/uL (1.0-4.8); Lymphocytes % (A) 5 %; MCH 29.6 pg (25.0-35.0); MCHC 29.5 g/dL (31.0-37.0); MCV 100.3 fL (80.0-100.0); Macrocytosis Slight; Mean Platelet Volume 7.2; Monocytes # (A) 0.5 k/uL (0-1.0); Monocytes % (A) 3 %; Neutrophils # (A) 16.7 k/uL (1.3-7.7); Neutrophils % (A) 91 %; Platelet Count 308 k/uL (150-450); RBC 4.22 m/uL (4.30-5.90); RDW 15.4 % (11.5-15.5); WBC 18.4 k/uL (3.8-10.6)
[2018-04-06 06:03] LABS: Calcium 8.3 mg/dL (8.4-10.2); Magnesium 2.3 mg/dL (1.6-2.3); Potassium 3.8 mmol/L (3.5-5.1)
[2018-04-06 07:55] LABS: ABG Base Excess -4.3 mmol/L; ABG HCO3 22 mmol/L (21-25); ABG Oxygen Saturation 97.4 % (94-97); ABG PCO2 42 mmHg (35-45); ABG PH 7.32 (7.35-7.45); ABG PO2 102 mmHg (83-108); ABG TCO2 23 mmol/L (19-24)
[2018-04-06] MEDS: BUDESONIDE 1 MG/2 ML NEBU INHALATION SCH ×2 (08:00→18:52)
[2018-04-06] MEDS: IPRATROPIUM-ALBUTEROL 3 ML NEB INHALATION SCH ×4 (08:00→18:52)
--- NOTE | 2018-04-06 08:23 | XR ---
EXAMINATION TYPE: XR chest 1V portable DATE OF EXAM: 04/06/2018 Comparison: 04/05/2018 Clinical History: 47-year-old male follow-up Tube placement Findings: ETT tube is satisfactory. Left subclavian CVC tip at the mid SVC level. Heart borderline enlarged. Di ffuse interstitial prominence. Bibasilar opacities persist and appear slightly increased. Impression: Increased small pleural effusions with prominent adjacent bibasilar atelectasis and/or consolidation. Given borderline heart size, consider CHF as a possible etiology.
--- NOTE | 2018-04-06 09:00 | PN ---
PROGRESS NOTE Mr. 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 He underwent surgical intervention yesterday by Dr. Ladd where he received a diverting loop colostomy, repair of incarcerated ventral hernia, partial laminectomy and debridement of the scrotum. He is intubated, sedated, hemodynamically stable. He is in sinus mechanism with no evidence of malignant arrhythmia. He is n.p.o. He has no NG tube. He continues on aspirin with that has been on hold and he received 1 dose of IV Lopressor yesterday. PHYSICAL EXAMINATION: Blood pressure 142/60 with a heart rate in the 90s. LUNGS: Clear anteriorly. HEART: Regular rate and rhythm, S1, S2. No S3. No rub with a systolic murmur. ABDOMEN: Soft, obese. Colostomy bag noted. Incision clean. Erythema in the lower abdomen noted. EXTREMITIES: +2 edema with chronic skin changes. LAB DATA: Revealed BUN and creatinine 94 and 2.9. Hemoglobin of 12.5. IMPRESSION: 1. Status post colostomy and omentectomy. 2. Murali's gangrene debridement. 3. Respiratory failure. 4. Chronic kidney disease. 5. Hypertension. 6. Hyperlipidemia. 7. Diabetes mellitus. 8. Non compliance. 9. Obesity. RECOMMENDATION: From the cardiac standpoint, I will switch him to intravenous beta xiomy. Continue the rest of his medical regimen. Will await the input of the Pulmonary Service regarding weaning and extubation. Unfortunately, the prognosis remains guarded. MMODL / IJN: [id number] /
[2018-04-06] MEDS: PANTOPRAZOLE 40 MG/10 ML VIAL IV SCH (10:18)
[2018-04-06] MEDS: HEPARIN SODIUM,PORCINE 5,000 UNIT/ML 1 ML VIAL SQ SCH ×4 (10:18→23:56)
[2018-04-06] MEDS: CHLORHEXIDINE GLUCONATE 15 ML CUP MUCOUS MEM SCH ×2 (10:18→22:08)
[2018-04-06] MEDS: NYSTATIN 100,000 UNIT/GM POWD 15 GM TOPICAL SCH ×2 (10:27→22:13)
[2018-04-06] MEDS: SODIUM HYPOCHLORITE 0.25% 480 ML BOT MISCELLANE SCH ×2 (10:29→22:09)
--- NOTE | 2018-04-06 10:43 | P.PN ---
Subjective Progress Note Date: 04/06/18 HISTORY OF PRESENT ILLNESS: 47-year-old male who underwent diverting loop colostomy, repair of incarcerated ventral hernia, partial omentectomy, and debridement of scrotum. POD #1. He remains intubated in the ICU. Colostomy noted with small amount of stool. PHYSICAL EXAM: VITAL SIGNS: Currently stable. GENERAL: Well-developed in no acute distress, on mechanical ventilation. HEENT: No sclera icterus. Extraocular movements grossly intact. Moist buccal mucosa. Head is atraumatic, normocephalic. Hears conversational speech. No nasal drainage. NECK: Supple without lymphadenopathy. CHEST: Non-labored respirations and equal bilateral excursions. CARDIOVASCULAR: Regular rate with regular rhythm. Palpable 2+ radial pulses. ABDOMEN: Soft. Nondistended. Tenderness upon palpation of all 4 quadrant, most severe in right lower quadrant MUSCULOSKELETAL: No clubbing, cyanosis or edema. NEUROLOGIC: No focal or lateralizing signs. Cranial nerves II through XII grossly intact. PSYCH: Appropriate affect. Alert and oriented to person, place and time. SKIN: Large wound to scrotal region with erythema and foul smelling purulent drainage. ASSESSMENT: 1. Necrotizing fasciitis with secondary sepsis 2. S/P diverting loop colostomy, repair of incarcerated ventral hernia, partial omentectomy PLAN: 1. Insert OG tube to LIS if patient is to remain vented 2. NPO. Will re-evaluate nutritional status tomorrow Nurse practitioner note has been reviewed by physician. Signing provider agrees with the documented findings, assessment, and plan of care. Objective - Vital Signs Vital signs: Vital Signs Temp 100.5 F H 04/06/18 07:00 Pulse 98 04/06/18 08:15 Resp 25 H 04/06/18 07:00 BP 139/67 04/05/18 21:00 Pulse Ox 94 L 04/06/18 07:00 Intake & Output 04/05/18 04/06/18 04/06/18 18:59 06:59 18:59 Intake Total 5042.438 2564 Output Total 1335 860 Balance 390.579 829 Weight 201.3 kg 205 kg Intake: IV 586 1039 0.9% .Pressure Bag 36 39 ACETAMINOPHEN IV (For NPO 100 ) 1,000 mg In Empty Bag 1 bag @ 400 mls/hr IVPB Q6HR PRN Rx#:[id number] Piperacillin-Tazobactam 3 100 100 .375 gm In Sodium Chloride 0.9% 100 ml @ 25 mls/hr IVPB Q8HR [facility] Rx# :[id number] Sodium Chloride 0.9% 1, 600 000 ml @ 50 mls/hr IV . Q20H [facility] Rx#:[id number] Sodium Chloride 0.9% 1, 50 000 ml @ 75 mls/hr IV . [id number] [facility] Rx#:[id number] metroNIDAZOLE-NS PMX 500 200 mg In Saline 1 100ml.bag @ 100 mls/hr IVPB Q6HR [facility] Rx#:[id number] Intake, IV Titration 1139.579 650 Amount Potassium Chloride 20 meq 200 In Water For Injection 1 100ml.bag @ 50 mls/hr IVPB Q2H [facility] Rx#: [id number] Propofol 1,000 mg In 189.579 600 Empty Bag 1 bag @ Titrate IV .Q0M [facility] Rx#: [id number] Sodium Chloride 0.9% 1, 550 50 000 ml @ 50 mls/hr IV . Q20H [facility] Rx#:[id number] metroNIDAZOLE-NS PMX 500 200 mg In Saline 1 100ml.bag @ 100 mls/hr IVPB Q6HR [facility] Rx#:[id number] Output: Urine 1305 860 Estimated Blood Loss 30 Other: Voiding Method Indwelling Catheter Indwelling Catheter ABP, PAP, CO, CI - Last Documented Arterial Blood Pressure 142/62 - Labs CBC & Chem 7: 04/06/18 05:00 04/06/18 05:30 Labs: Abnormal Lab Results - Last 24 Hours (Table) 04/05/18 04/05/18 04/05/18 Range/Units 11:51 16:50 16:51 WBC (3.8-10.6) k/uL RBC (4.30-5.90) m/uL Hgb (13.0-17.5) gm/dL MCV (80.0-100.0) fL MCHC (31.0-37.0) g/dL Neutrophils # (1.3-7.7) k/uL Lymphocytes # (1.0-4.8) k/uL ABG pH 7.32 L (7.35-7.45) ABG pO2 158 H (83-108) mmHg ABG O2 Saturation 99.1 H (94-97) % Chloride (98-107) mmol/L Carbon Dioxide (22-30) mmol/L BUN (9-20) mg/dL Creatinine (0.66-1.25) mg/dL Glucose (74-99) mg/dL POC Glucose (mg/dL) 108 H 120 H (75-99) mg/dL Calcium (8.4-10.2) mg/dL Phosphorus (2.5-4.5) mg/dL 04/06/18 04/06/18 04/06/18 Range/Units 00:10 04:53 05:00 WBC 18.4 H (3.8-10.6) k/uL RBC 4.22 L (4.30-5.90) m/uL Hgb 12.5 L (13.0-17.5) gm/dL MCV 100.3 H (80.0-100.0) fL MCHC 29.5 L (31.0-37.0) g/dL Neutrophils # 16.7 H (1.3-7.7) k/uL Lymphocytes # 0.9 L (1.0-4.8) k/uL ABG pH (7.35-7.45) ABG pO2 (83-108) mmHg ABG O2 Saturation (94-97) % Chloride (98-107) mmol/L Carbon Dioxide (22-30) mmol/L BUN (9-20) mg/dL Creatinine (0.66-1.25) mg/dL Glucose (74-99) mg/dL POC Glucose (mg/dL) 119 H 131 H (75-99) mg/dL Calcium (8.4-10.2) mg/dL Phosphorus (2.5-4.5) mg/dL 04/06/18 04/06/18 Range/Units 05:30 07:53 WBC (3.8-10.6) k/uL RBC (4.30-5.90) m/uL Hgb (13.0-17.5) gm/dL MCV (80.0-100.0) fL MCHC (31.0-37.0) g/dL Neutrophils # (1.3-7.7) k/uL Lymphocytes # (1.0-4.8) k/uL ABG pH 7.32 L (7.35-7.45) ABG pO2 (83-108) mmHg ABG O2 Saturation 97.4 H (94-97) % Chloride 110 H (98-107) mmol/L Carbon Dioxide 20 L (22-30) mmol/L BUN 94 H (9-20) mg/dL Creatinine 2.90 H (0.66-1.25) mg/dL Glucose 125 H (74-99) mg/dL POC Glucose (mg/dL) (75-99) mg/dL Calcium 8.3 L (8.4-10.2) mg/dL Phosphorus 7.0 H (2.5-4.5) mg/dL Microbiology - Last 24 Hours (Table) 04/02/18 03:42 Blood Culture - Preliminary Blood No Growth after 96 hours 04/01/18 20:05 Blood Culture - Preliminary Blood No Growth after 96 hours 04/01/18 18:57 Blood Culture - Preliminary Blood No Growth after 96 hours 04/02/18 00:49 Anaerobic Culture - Final Scrotum 04/02/18 00:49 Anaerobic Culture - Final Scrotum 04/02/18 00:49 Gram Stain - Final Groin Wound Culture - Final Proteus mirabilis Enterococcus faecalis Escherichia coli 04/01/18 03:40 Anaerobic Culture - Final Scrotum
--- NOTE | 2018-04-06 11:03 | P.PN ---
Progress Note - Text Progress Note Date: 04/06/18 The patient underwent a transverse loop colostomy yesterday. Examination of the scrotum this morning shows persistent purulence with some necrotic tissue. In view of this, I intend to perform further debridement later today under general anesthesia.
[2018-04-06 12:04] LABS: Glucose,Whole Blood 111 mg/dL (75-99)
--- NOTE | 2018-04-06 12:47 | P.PN ---
Subjective Progress Note Date: 04/06/18 Principal diagnosis: Murali"s gangrene, necrotizing fasciitis and sepsis This is a 47-year-old morbidly obese male patient, who has not had any regular follow-up on his healthcare, which is diabetic and he presented to the hospital because of necrotizing fasciitis of the scrotum. The patient has been feeling sick. He was having dull aching pain in the scrotal area along with red discoloration in the scrotal area and the perianal area extending to the right lower abdominal fold all the way up to his right lateral abdominal wall. At the same time there was foul smelling drainage. He denies having any high- grade fever. He was experiencing some shortness of breath. He came in with a white cell count of 19,000. Immediately, he had a urology consultation the patient was taken to the operating room where he underwent scrotal exploration with debridement of the necrotic scrotal skin. There was an infection that was tracking superiorly into the right inguinal region and inferiorly to the dependent portion of the scrotum. Postop, the patient was kept intubated and the patient was brought into the ICU for further care. On 04/05/2018, patient remains in the intensive care unit, he is on 5 L nasal cannula, O2 saturation is in the 93% range, patient denies any shortness of breath, no cough, no wheezing, denies any chest pain. Patient is scheduled to undergo diaphoretic colostomy today, and he will likely have further debridement of the scrotal area which will be done by either general surgery or urology or possibly both. Apparently there was a concern about a fistula from the GI tract contributing to his initial presentation of severe necrotizing fasciitis and abscesses. Patient had a combination of Proteus and enterococcus faecalis. his sputum was positive for Haemophilus influenza. Continues to have leukocytosis with WBC of 16.4. Renal functioning is improving, creatinine is down to 2.71 BUN is 97. Patient was evaluated today on 04/06/2018, patient came back from the operating room yesterday on mechanical ventilation, and he remains on mechanical ventilation today. His ventilator settings are FiO2 of 60%, tidal volume of 600 assist control rate of 20 and PEEP is up to 8. ABG this morning showed a pO2 of 102 pCO2 of 42 pH of 7.32 and this was on 70% FiO2. Hence PEEP was increased and FiO2 was cut down to 60%. Patient has leukocytosis with WBC count of 18.4 hemoglobin is 12.5. Continues to have acute kidney injury with BUN of 94 creatinine of 2.90. Patient underwent transverse loop colostomy yesterday,, and he is scheduled to have scrotal debridement today by urology again and this would be done under general anesthesia. Hence I have no plans to wean or extubated the patient today, I will keep him on mechanical ventilation, as a matter of fact his gases are marginal, I even doubt the patient is even weaning of all at this point in time. Chest x-ray is slightly worse, it is showing small pleural effusions and bibasilar atelectasis. Patient is presently sedated, on propofol. Objective - Vital Signs Vital signs: Vital Signs Temp 98.5 F 04/06/18 12:00 Pulse 85 04/06/18 12:00 Resp 20 04/06/18 12:00 BP 119/79 04/06/18 12:00 Pulse Ox 90 L 04/06/18 12:00 Intake & Output 04/05/18 04/06/18 04/06/18 18:59 06:59 18:59 Intake Total 8689.315 9181 512 Output Total 1335 860 450 Balance 390.579 829 62 Weight 201.3 kg 205 kg Intake: IV 586 1039 312 0.9% .Pressure Bag 36 39 12 ACETAMINOPHEN IV (For NPO 100 ) 1,000 mg In Empty Bag 1 bag @ 400 mls/hr IVPB Q6HR PRN Rx#:[id number] Piperacillin-Tazobactam 3 100 100 100 .375 gm In Sodium Chloride 0.9% 100 ml @ 25 mls/hr IVPB Q8HR [facility] Rx# :[id number] Sodium Chloride 0.9% 1, 600 200 000 ml @ 50 mls/hr IV . Q20H [facility] Rx#:[id number] Sodium Chloride 0.9% 1, 50 000 ml @ 75 mls/hr IV . [id number] [facility] Rx#:[id number] metroNIDAZOLE-NS PMX 500 200 mg In Saline 1 100ml.bag @ 100 mls/hr IVPB Q6HR [facility] Rx#:[id number] Intake, IV Titration 1139.579 650 200 Amount Potassium Chloride 20 meq 200 In Water For Injection 1 100ml.bag @ 50 mls/hr IVPB Q2H [facility] Rx#: [id number] Propofol 1,000 mg In 189.579 600 Empty Bag 1 bag @ Titrate IV .Q0M [facility] Rx#: [id number] Sodium Chloride 0.9% 1, 550 50 200 000 ml @ 50 mls/hr IV . Q20H [facility] Rx#:[id number] metroNIDAZOLE-NS PMX 500 200 mg In Saline 1 100ml.bag @ 100 mls/hr IVPB Q6HR [facility] Rx#:[id number] Output: Urine 1305 860 450 Estimated Blood Loss 30 Other: Voiding Method Indwelling Catheter Indwelling Catheter ABP, PAP, CO, CI - Last Documented Arterial Blood Pressure 84/61 - Exam Physical Exam: Revealed a morbidly obese 47-year-old white male on mechanical ventilation, fully sedated, on propofol, may be going back to the operating room later Head: Atraumatic, normocephalic. HEENT:[Neck is supple.] [No neck masses.] [No thyromegaly.] [No JVD.] PERRLA, EOMI, moist mucous membranes. Endotracheal tube is intact. Chest: [Diminished breath sounds and crackles at the bases.] Symmetrical chest expansion, no chest wall tenderness. Cardiac Exam: [Distant S1 and S2, no S3 gallop, no murmur.] Abdomen: [Obese, Soft, nontender, no megaly, no rebound, no guarding, normal bowel sounds.] Transverse colostomy is noted in the upper abdomen. Minimal fluid collection in the bag noted. Extremities: [No clubbing, 2+ bipedal edema, no cyanosis.] Neurological Exam: Cannot be assessed today, however he had intact mental status and neurological exam yesterday. The perianal area was noted to have postsurgical changes, scrotal area noted to be incised and packed, there is evidence of significant cellulitis, erythema, extending from the scrotal area into the right inguinal area extending into the right lateral abdominal wall and to the flank area. Noted to be foul-smelling. This is being addressed by surgery and urology. Psychiatric: Cannot be assessed, fully sedated Lymphatics: No lymphadenopathy. - Labs CBC & Chem 7: 04/06/18 05:00 04/06/18 05:30 Labs: Abnormal Lab Results - Last 24 Hours (Table) 04/05/18 04/05/18 04/06/18 Range/Units 16:50 16:51 00:10 WBC (3.8-10.6) k/uL RBC (4.30-5.90) m/uL Hgb (13.0-17.5) gm/dL MCV (80.0-100.0) fL MCHC (31.0-37.0) g/dL Neutrophils # (1.3-7.7) k/uL Lymphocytes # (1.0-4.8) k/uL ABG pH 7.32 L (7.35-7.45) ABG pO2 158 H (83-108) mmHg ABG O2 Saturation 99.1 H (94-97) % Chloride (98-107) mmol/L Carbon Dioxide (22-30) mmol/L BUN (9-20) mg/dL Creatinine (0.66-1.25) mg/dL Glucose (74-99) mg/dL POC Glucose (mg/dL) 120 H 119 H (75-99) mg/dL Calcium (8.4-10.2) mg/dL Phosphorus (2.5-4.5) mg/dL 04/06/18 04/06/18 04/06/18 Range/Units 04:53 05:00 05:30 WBC 18.4 H (3.8-10.6) k/uL RBC 4.22 L (4.30-5.90) m/uL Hgb 12.5 L (13.0-17.5) gm/dL MCV 100.3 H (80.0-100.0) fL MCHC 29.5 L (31.0-37.0) g/dL Neutrophils # 16.7 H (1.3-7.7) k/uL Lymphocytes # 0.9 L (1.0-4.8) k/uL ABG pH (7.35-7.45) ABG pO2 (83-108) mmHg ABG O2 Saturation (94-97) % Chloride 110 H (98-107) mmol/L Carbon Dioxide 20 L (22-30) mmol/L BUN 94 H (9-20) mg/dL Creatinine 2.90 H (0.66-1.25) mg/dL Glucose 125 H (74-99) mg/dL POC Glucose (mg/dL) 131 H (75-99) mg/dL Calcium 8.3 L (8.4-10.2) mg/dL Phosphorus 7.0 H (2.5-4.5) mg/dL 04/06/18 04/06/18 Range/Units 07:53 11:52 WBC (3.8-10.6) k/uL RBC (4.30-5.90) m/uL Hgb (13.0-17.5) gm/dL MCV (80.0-100.0) fL MCHC (31.0-37.0) g/dL Neutrophils # (1.3-7.7) k/uL Lymphocytes # (1.0-4.8) k/uL ABG pH 7.32 L (7.35-7.45) ABG pO2 (83-108) mmHg ABG O2 Saturation 97.4 H (94-97) % Chloride (98-107) mmol/L Carbon Dioxide (22-30) mmol/L BUN (9-20) mg/dL Creatinine (0.66-1.25) mg/dL Glucose (74-99) mg/dL POC Glucose (mg/dL) 111 H (75-99) mg/dL Calcium (8.4-10.2) mg/dL Phosphorus (2.5-4.5) mg/dL Microbiology - Last 24 Hours (Table) 04/02/18 03:42 Blood Culture - Preliminary Blood No Growth after 96 hours 04/01/18 20:05 Blood Culture - Preliminary Blood No Growth after 96 hours 04/01/18 18:57 Blood Culture - Preliminary Blood No Growth after 96 hours 04/02/18 00:49 Anaerobic Culture - Final Scrotum 04/02/18 00:49 Anaerobic Culture - Final Scrotum 04/02/18 00:49 Gram Stain - Final Groin Wound Culture - Final Proteus mirabilis Enterococcus faecalis Escherichia coli 04/01/18 03:40 Anaerobic Culture - Final Scrotum Assessment and Plan Assessment: Impression: 1 Murali's gangrene/necrotizing fasciitis with secondary sepsis, patient is status post debridement, that debrided tissue was positive for Proteus and enterococcus faecalis. 2 acute sepsis secondary to above 3 acute hypoxic respiratory failure secondary to above and mostly secondary to sepsis suspect the patient may be developing ARDS from his ongoing necrotizing fasciitis. 4 acute on chronic kidney injury, most likely secondary to sepsis 5 morbid obesity 6 type 2 diabetes poorly controlled on outpatient basis. 7 status post transverse colostomy/diverting colostomy postoperative day #1. Recommendation: Considering the patient is going back to the operating room today, I plan to keep him on mechanical ventilation, not to mention I had to go back up on his PEEP, he is still requiring high FiO2 at 60% presently, and I feel the patient is clearly developing what seems to be ARDS. He is clearly not ready to be weaned or extubated, continue antibiotics, continue ventilatory support, nutritional support, GI and DVT prophylaxis, bronchodilators, I have a feeling that the patient should be considered for transfer and that will depend on the comfort zone of the urologist and the general surgeon on the case. Prognosis is definitely poor and guarded at this point. Critical care time is 35 minutes. Time with Patient: Greater than 30
[2018-04-06] MEDS: CALCIUM ACETATE 667 MG CAP PO SCH (16:39)
[2018-04-06] MEDS: hydrALAZINE HCL 25 MG TAB PO SCH ×2 (16:40→22:12)
[2018-04-06] MEDS: ASPIRIN 81 MG PO SCH (17:54)
[2018-04-06 17:58] LABS: Glucose,Whole Blood 120 mg/dL (75-99)
--- NOTE | 2018-04-06 18:38 | PN ---
PROGRESS NOTE Patient is seen for followup for acute kidney injury, mainly ATN, currently non- oliguric. Patient will be going back to the OR for debridement. He is currently intubated. On examination, patient is currently sedated. He is on the vent. Blood pressure this morning was 98/74, heart rate about 87 per minute. Patient is afebrile. EXAMINATION OF THE HEART: S1, S2. EXAMINATION OF LUNGS: Bilateral breath sounds are heard. ABDOMEN: Soft, obese, distended. Examination of lower extremities shows edema 1+ bilaterally. DRUG ABUSE WORKER exam cannot be performed. Lab show hemoglobin 12.5, sodium 140, potassium 3.8, BUN 94, serum creatinine 2.9, phosphorus 7.0. ASSESSMENT: 1. Acute kidney injury, acute tubular necrosis, currently non-oliguric, secondary to sepsis, hypotension, hypoperfusion. Currently maintained on IV fluids, which I will continue. 2. Vent-dependent respiratory failure, maintained on the vent. 3. Murali's gangrene, status post multiple debridements, and maintained on IV antibiotics, being followed by Urology. 4. Hyperphosphatemia secondary to renal failure, maintained on phosphate binders. 5. Status post diverting colostomy. 6. Type 2 diabetes. 7. Morbid obesity. PLAN: Continue with IV fluids. Avoid nephrotoxic agents. Repeat labs in a.m. MMGERALDOL / IJN: [id number] /
[2018-04-06] MEDS: METOPROLOL TARTRATE 5 MG/5 ML VIAL IVP SCH (18:40)
--- NOTE | 2018-04-06 21:33 | P.OP ---
Date of Procedure: 04/06/18 Preoperative Diagnosis: Murali's gangrene Postoperative Diagnosis: Same Procedure(s) Performed: Scrotal wound debridement Anesthesia: LEONIDAS Surgeon: Riley Martinez Estimated Blood Loss (ml): 30 IV fluids (ml): 80 Pathology: none sent Condition: stable Disposition: PACU Indications for Procedure: The patient is a 47-year-old white male who underwent debridement of Murali's gangrene of the scrotum on 04/01/2018. He was noted to have a draining wound adjacent to the anus over the weekend, and therefore he underwent a diverting colostomy yesterday. Examination today reveals residual necrotic scrotal tissue and he now comes for debridement. Operative Findings: Necrotic scrotal tissue. The scrotal wound extends to the prepubic region on the left, and posteriorly down to the open wound on the posterior right perineum. Description of Procedure: The patient was taken to the operating room and placed in the dorsolithotomy position, with his legs supported in Nam stirrups. The abdomen and external genitalia were prepped and draped sterilely. The scrotal wound was examined. The skin was viable. Necrotic tissue was noted within the scrotum, particularly midline and posteriorly. This was sharply excised, using Metzenbaum scissors and Bovie electrocautery. The wound was probed, and on the left side it was noted to extend to the pre-pubic region. As the space was opened, some purulent fluid drained. On the right side, the wound tract posteriorly to the open wound in the right posterior perineum. That wound was debrided, excising a small amount of necrotic skin as well as some necrotic subcutaneous tissue. Overall, a considerable amount of tissue was debrided, but upon completion of the procedure there was only a minimal amount of necrotic tissue. Towards the end of the procedure, virtually all debridement resulted in bleeding, indicative of viable tissue. Saline soaked Kerlix gauze was then used to pack the wound, extending to the prepyloric region on the left and the posterior perineum on the right. The Kaye catheter continued to drain urine which was concentrated in appearance. All sponge and needle counts were correct. The patient was then transferred back to the ICU.
--- NOTE | 2018-04-06 23:12 | PN ---
PROGRESS NOTE DATE OF SERVICE: 04/06/2018 REASON FOR FOLLOWUP: Murali's gangrene. INTERVAL HISTORY: The patient did spike a fever yesterday after the patient had surgery. However, the patient has been afebrile since morning except the highest temperature of 100.5. He is hemodynamically stable, not on any pressor support. Scheduled for another visit to the OR for debridement of infected scrotal wound. FiO2 is currently 75%. PHYSICAL EXAMINATION: Blood pressure is 132/80 with a pulse of 74, temperature 98. He is 90% on 60% FiO2. General description is a middle-aged male lying in bed in no distress. HEENT EXAMINATION: No pallor or scleral icterus. The patient is orally intubated. LUNGS: Unlabored breathing. Decreased breath sounds at the bases. No wheeze. HEART: S1, S2. Regular rate and rhythm. ABDOMEN: Soft. Scrotal area overall slough has slightly decreased. Still has some foul-smelling drainage. LABS: Hemoglobin is 12.5, white count of 18.4, BUN of 94, creatinine 2.90. DIAGNOSTIC IMPRESSION AND PLAN: Patient with sepsis. Source is acute Murali's gangrene that is wet. Extensive debridement multiple times. Also with a question of possible requiring diverting colostomy. Patient's overall prognosis remains guarded with a plan for possible transfer to tertiary care. Culture has been positive for Proteus mirabilis, Enterococcus faecalis and E coli, covered with the Zosyn patient is currently on. Family present at the bedside. Their questions were answered. MMODL / IJN: [id number] /
--- NOTE | 2018-04-06 23:39 | P.PN ---
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 Patient was initially intubated and extubated on 04/03/2018. 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 Patient was taken to or and Diverting colostomy was done by Dr. Mcnulty. Patient is back on mechanical ventilator. 04/06/2018 Patient remained on mechanical ventilator today. Patient is sedated. Patient is being continued on antibiotics in the form of Zosyn and Flagyl. WBC count is 18.4 today. Hemoglobin 12.5. Creatinine level II.9. Patient is scheduled for scrotal debridement today and by urology. Chest x-ray showed small pleural effusions and bibasilar atelectasis. Review of systems could not be obtained from the patient. Active Medications Generic Name Dose Route Start Last Admin Trade Name Freq PRN Reason Stop Dose Admin Acetaminophen 650 mg 04/01/18 06:16 04/01/18 20:22 Tylenol Tab PO 650 mg Q6HR PRN Administration Fever and/ or MILDPain Albuterol/Ipratropium 3 ml 04/05/18 08:00 04/06/18 18:52 Duoneb 0.5 Mg-3 Mg/3 Ml Soln INHALATION 3 ml RT-QID [facility]JIT Administration Albuterol/Ipratropium 3 ml 04/04/18 23:53 Duoneb 0.5 Mg-3 Mg/3 Ml Soln INHALATION RT-Q2H PRN Shortness Of Breath Or Wheezing Aspirin 81 mg 04/02/18 09:00 04/06/18 17:54 Aspirin PO Not Given DAILY MANJIT Budesonide 1 mg 04/02/18 20:05 04/06/18 18:52 Pulmicort INHALATION 1 mg RT-BID MANJIT Administration Calcium Acetate 667 mg 04/02/18 12:30 04/06/18 16:39 Phoslo PO Not Given TID-W/MEALS MAJNIT Chlorhexidine Gluconate 15 ml 04/05/18 21:00 04/06/18 22:08 Peridex MUCOUS MEM 15 ml BID [facility]JIT Administration Heparin Sodium (Porcine) 5,000 unit 04/02/18 08:00 04/06/18 16:40 Heparin SQ 5,000 unit Q8HR [facility] Administration Hydralazine HCl 25 mg 04/05/18 09:00 04/06/18 22:12 Apresoline PO Not Given TID [facility]JIT Hydromorphone HCl 1 mg 04/03/18 11:22 04/06/18 18:39 Dilaudid IVP 1 mg Q3HR PRN Administration SEVERE Pain Piperacillin Sod/Tazobactam 100 mls @ 25 mls/hr 04/01/18 18:30 04/06/18 16:41 Sod 3.375 gm/ Sodium Chloride IVPB 25 mls/hr Q8HR [facility] Administration Sodium Chloride 1,000 mls @ 50 mls/hr 04/04/18 09:30 04/05/18 18:00 Saline 0.9% IV 50 mls/hr .Q20H MANJIT Administration Metronidazole 500 mg/ IV 100 mls @ 100 mls/hr 04/05/18 00:00 04/06/18 17:54 Solution IVPB 100 mls/hr Q6HR [facility]JIT Administration Propofol 1,000 mg/ IV Solution 100 mls @ 0 mls/hr 04/05/18 14:30 04/06/18 22: 07 IV 60 mcg/kg/min .Q0M MANJIT 73.8 mls/hr Administration Protocol Titrate Acetaminophen 1,000 mg/ IV 100 mls @ 400 mls/hr 04/06/18 04:46 04/06/18 05:22 Solution IVPB 04/07/18 00:14 400 mls/hr Q6HR PRN Administration Fever Insulin Aspart 0 unit 04/02/18 06:00 04/06/18 19:32 Novolog SQ Not Given Q6H [facility] Protocol Metoprolol Tartrate 5 mg 04/06/18 16:00 04/06/18 18:40 Lopressor IVP 5 mg Q8HR MANJIT Administration Miscellaneous Information 1 each 04/05/18 06:52 Potassium Per Protocol MISCELLANE DAILY PRN Per Protocol Protocol Naloxone HCl 0.2 mg 04/02/18 02:40 Narcan IV Q2M PRN Opioid Reversal Nitroglycerin 0.4 mg 03/31/18 23:46 Nitrostat SUBLINGUAL Q5M PRN Chest Pain Nystatin 1 applic 03/31/18 23:45 04/06/18 22:13 Mycostatin Powder TOPICAL 1 applic BID MANJIT Administration Pantoprazole Sodium 40 mg 04/02/18 09:00 04/06/18 10:18 Protonix IV 40 mg DAILY [facility]JIT Administration Sodium Chloride 10 ml 04/01/18 09:00 04/06/18 22:13 Saline Flush IV 10 ml BID MANJIT Administration Sodium Hypochlorite 0 ml 04/03/18 17:00 04/06/18 22:09 Dakin's 0.25% (Half Strength) MISCELLANE Not Given BID [facility] Objective - Vital Signs Vital signs: Vital Signs Temp 98.5 F 04/06/18 12:00 Pulse 85 04/06/18 12:00 Resp 20 04/06/18 12:00 BP 119/79 04/06/18 12:00 Pulse Ox 90 L 04/06/18 12:00 Intake & Output 04/05/18 04/06/18 04/06/18 18:59 06:59 18:59 Intake Total 1667.732 0828 812 Output Total 1335 860 450 Balance 390.579 829 362 Weight 201.3 kg 205 kg Intake: IV 586 1039 312 0.9% .Pressure Bag 36 39 12 ACETAMINOPHEN IV (For NPO 100 ) 1,000 mg In Empty Bag 1 bag @ 400 mls/hr IVPB Q6HR PRN Rx#:[id number] Piperacillin-Tazobactam 3 100 100 100 .375 gm In Sodium Chloride 0.9% 100 ml @ 25 mls/hr IVPB Q8HR [facility] Rx# :[id number] Sodium Chloride 0.9% 1, 600 200 000 ml @ 50 mls/hr IV . Q20H [facility] Rx#:[id number] Sodium Chloride 0.9% 1, 50 000 ml @ 75 mls/hr IV . [id number] [facility] Rx#:[id number] metroNIDAZOLE-NS PMX 500 200 mg In Saline 1 100ml.bag @ 100 mls/hr IVPB Q6HR [facility] Rx#:[id number] Intake, IV Titration 1139.579 650 500 Amount Potassium Chloride 20 meq 200 In Water For Injection 1 100ml.bag @ 50 mls/hr IVPB Q2H [facility] Rx#: [id number] Propofol 1,000 mg In 189.579 600 300 Empty Bag 1 bag @ Titrate IV .Q0M [facility] Rx#: [id number] Sodium Chloride 0.9% 1, 550 50 200 000 ml @ 50 mls/hr IV . Q20H [facility] Rx#:[id number] metroNIDAZOLE-NS PMX 500 200 mg In Saline 1 100ml.bag @ 100 mls/hr IVPB Q6HR [facility] Rx#:[id number] Output: Urine 1305 860 450 Estimated Blood Loss 30 Other: Voiding Method Indwelling Catheter Indwelling Catheter Indwelling Catheter ABP, PAP, CO, CI - Last Documented Arterial Blood Pressure 84/61 - Exam Physical Exam: Revealed a morbidly obese 47-year-old white male on mechanical ventilation, fully sedated, on propofol, may be going back to the operating room later Head: Atraumatic, normocephalic. HEENT:[Neck is supple.] [No neck masses.] [No thyromegaly.] [No JVD.] PERRLA, EOMI, moist mucous membranes. Endotracheal tube is intact. Chest: [Diminished breath sounds and crackles at the bases.] Symmetrical chest expansion, no chest wall tenderness. Cardiac Exam: [Distant S1 and S2, no S3 gallop, no murmur.] Abdomen: [Obese, Soft, nontender, no megaly, no rebound, no guarding, normal bowel sounds.] Transverse colostomy is noted in the upper abdomen. Minimal fluid collection in the bag noted. Extremities: [No clubbing, 2+ bipedal edema, no cyanosis.] Neurological Exam: Cannot be assessed today, however he had intact mental status and neurological exam yesterday. The perianal area was noted to have postsurgical changes, scrotal area noted to be incised and packed, there is evidence of significant cellulitis, erythema, extending from the scrotal area into the right inguinal area extending into the right lateral abdominal wall and to the flank area. Noted to be foul-smelling. This is being addressed by surgery and urology. Psychiatric: Cannot be assessed, fully sedated Lymphatics: No lymphadenopathy. - Labs CBC & Chem 7: 04/06/18 05:00 04/06/18 05:30 Labs: Abnormal Lab Results - Last 24 Hours (Table) 04/05/18 04/05/18 04/06/18 Range/Units 16:50 16:51 00:10 WBC (3.8-10.6) k/uL RBC (4.30-5.90) m/uL Hgb (13.0-17.5) gm/dL MCV (80.0-100.0) fL MCHC (31.0-37.0) g/dL Neutrophils # (1.3-7.7) k/uL Lymphocytes # (1.0-4.8) k/uL ABG pH 7.32 L (7.35-7.45) ABG pO2 158 H (83-108) mmHg ABG O2 Saturation 99.1 H (94-97) % Chloride (98-107) mmol/L Carbon Dioxide (22-30) mmol/L BUN (9-20) mg/dL Creatinine (0.66-1.25) mg/dL Glucose (74-99) mg/dL POC Glucose (mg/dL) 120 H 119 H (75-99) mg/dL Calcium (8.4-10.2) mg/dL Phosphorus (2.5-4.5) mg/dL 04/06/18 04/06/18 04/06/18 Range/Units 04:53 05:00 05:30 WBC 18.4 H (3.8-10.6) k/uL RBC 4.22 L (4.30-5.90) m/uL Hgb 12.5 L (13.0-17.5) gm/dL MCV 100.3 H (80.0-100.0) fL MCHC 29.5 L (31.0-37.0) g/dL Neutrophils # 16.7 H (1.3-7.7) k/uL Lymphocytes # 0.9 L (1.0-4.8) k/uL ABG pH (7.35-7.45) ABG pO2 (83-108) mmHg ABG O2 Saturation (94-97) % Chloride 110 H (98-107) mmol/L Carbon Dioxide 20 L (22-30) mmol/L BUN 94 H (9-20) mg/dL Creatinine 2.90 H (0.66-1.25) mg/dL Glucose 125 H (74-99) mg/dL POC Glucose (mg/dL) 131 H (75-99) mg/dL Calcium 8.3 L (8.4-10.2) mg/dL Phosphorus 7.0 H (2.5-4.5) mg/dL 04/06/18 04/06/18 Range/Units 07:53 11:52 WBC (3.8-10.6) k/uL RBC (4.30-5.90) m/uL Hgb (13.0-17.5) gm/dL MCV (80.0-100.0) fL MCHC (31.0-37.0) g/dL Neutrophils # (1.3-7.7) k/uL Lymphocytes # (1.0-4.8) k/uL ABG pH 7.32 L (7.35-7.45) ABG pO2 (83-108) mmHg ABG O2 Saturation 97.4 H (94-97) % Chloride (98-107) mmol/L Carbon Dioxide (22-30) mmol/L BUN (9-20) mg/dL Creatinine (0.66-1.25) mg/dL Glucose (74-99) mg/dL POC Glucose (mg/dL) 111 H (75-99) mg/dL Calcium (8.4-10.2) mg/dL Phosphorus (2.5-4.5) mg/dL Microbiology - Last 24 Hours (Table) 04/02/18 03:42 Blood Culture - Preliminary Blood No Growth after 96 hours 04/01/18 20:05 Blood Culture - Preliminary Blood No Growth after 96 hours 04/01/18 18:57 Blood Culture - Preliminary Blood No Growth after 96 hours 04/02/18 00:49 Anaerobic Culture - Final Scrotum 04/02/18 00:49 Anaerobic Culture - Final Scrotum 04/02/18 00:49 Gram Stain - Final Groin Wound Culture - Final Proteus mirabilis Enterococcus faecalis Escherichia coli 04/01/18 03:40 Anaerobic Culture - Final Scrotum Assessment and Plan Assessment: 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 Acute COPD exacerbation Acute hypoxic respiratory failure on mechanical ventilator second to COPD exacerbation. Patient was initially extubated and currently back on ventilator post surgery. Morbid obesity with BMI 56.5 severe candidial intertriginous infection Acute kidney injury secondary to ATN secondary to sepsis Hypoalbuminemia Troponin leak secondary to acute kidney injury Possible obesity hypoventilation syndrome [place] perineal fistula status post diverticular colostomy DVT prophylaxis Plan: Patient be continued on current medications reviewed and antibiotics. Patient is being taken to or today for perineal/scrotal debridement. Currently the current management and mechanical ventilator. Pulmonary, general surgery and urology on board. Further recommendations based on the clinical course. prognosis is guarded. Discussed with his at bedside in detail. Time with Patient: Greater than 30
[2018-04-06] MEDS: SODIUM CHLORIDE 0.9% 1,000 ML IV SCH (23:56)
[2018-04-07 00:03] LABS: Glucose,Whole Blood 130 mg/dL (75-99)
[2018-04-07] MEDS: INSULIN ASPART (NovoLOG) 100 UNIT/ML VIAL SQ SCH ×2 (00:05→05:14)
[2018-04-07] MEDS: HYDROmorphone 1 MG/ML 1 ML SYRINGE IVP PRN (01:01)
[2018-04-07] MEDS: PROPOFOL 1,000 MG in EMPTY BAG 1 BAG IV SCH ×7 (01:31→10:52)
[2018-04-07] MEDS: METOPROLOL TARTRATE 5 MG/5 ML VIAL IVP SCH ×2 (01:33→10:03)
[2018-04-07] MEDS ORDERED: ACETAMINOPHEN IV (For NPO) 1,000 MG in EMPTY BAG 1 BAG IVPB PRN (02:59)
[2018-04-07 04:31] LABS: HCT 38.2 % (39.0-53.0); HGB 11.6 gm/dL (13.0-17.5); Hypochromasia Marked; MCH 30.8 pg (25.0-35.0); MCHC 30.4 g/dL (31.0-37.0); MCV 101.4 fL (80.0-100.0); Macrocytosis Slight; Mean Platelet Volume 7.1; Platelet Count 269 k/uL (150-450); RBC 3.76 m/uL (4.30-5.90); RDW 15.5 % (11.5-15.5); WBC 17.5 k/uL (3.8-10.6)
[2018-04-07 04:41] LABS: Albumin 2.2 g/dL (3.5-5.0); Calcium 8.1 mg/dL (8.4-10.2); Magnesium 2.4 mg/dL (1.6-2.3); Phosphorus 8.1 mg/dL (2.5-4.5); Potassium 3.9 mmol/L (3.5-5.1); Total Protein 5.7 g/dL (6.3-8.2)
[2018-04-07] MEDS: metroNIDAZOLE-NS PMX 500 MG in SALINE 1 100ML.BAG IVPB SCH (05:09)
[2018-04-07 05:23] LABS: Glucose,Whole Blood 106 mg/dL (75-99)
[2018-04-07 05:26] LABS: Band Neutrophils % 1 %; Eosinophils # (M) 0.53 k/uL (0-0.7); Lymphocytes # (M) 1.23 k/uL (1.0-4.8); Monocytes # (M) 0.53 k/uL (0-1.0); Myelocytes # (M) 0.18 k/uL (0); Myelocytes % 1 %; Neutrophils % (M) 87 %; Nucleated Red Blood Cells 0 /100 WBC (0-0); Total Cells Counted 200
[2018-04-07] MEDS ORDERED: POTASSIUM CHLORIDE 20 MEQ in WATER FOR INJECTION 1 100ML.BAG IVPB ONE (06:08)
[2018-04-07 06:52] VITALS: TEMP 99.2
--- NOTE | 2018-04-07 07:35 | XR ---
EXAMINATION TYPE: XR chest 1V portable DATE OF EXAM: 04/07/2018 COMPARISON: 04/06/2018 HISTORY: SOB, Follow Up FINDINGS: Indwelling tubes and catheters are unchanged. NG tube has been placed and is seen coursing into the s tomach. No change in bibasilar opacities. Stable appearance of the cardio-mediastinal structures at this time. Pleural effusion unchanged. IMPRESSION: 1. Stable portable chest. Clinical correlation and follow up until resolution is recommended.
[2018-04-07 08:02] LABS: ABG Base Excess -5.3 mmol/L; ABG HCO3 21 mmol/L (21-25); ABG Oxygen Saturation 95.9 % (94-97); ABG PCO2 41 mmHg (35-45); ABG PH 7.32 (7.35-7.45); ABG PO2 86 mmHg (83-108); ABG TCO2 22 mmol/L (19-24)
[2018-04-07] MEDS: BUDESONIDE 1 MG/2 ML NEBU INHALATION SCH (08:07)
[2018-04-07] MEDS: IPRATROPIUM-ALBUTEROL 3 ML NEB INHALATION SCH ×2 (08:07→12:17)
[2018-04-07] MEDS ORDERED: SODIUM CHLORIDE 0.9% 1,000 ML IV SCH (08:45)
--- NOTE | 2018-04-07 08:50 | P.PN ---
Subjective Progress Note Date: 04/07/18 HISTORY OF PRESENT ILLNESS: 47-year-old male who underwent diverting loop colostomy, repair of incarcerated ventral hernia, partial omentectomy, and debridement of scrotum. POD #2. He remains intubated in the ICU. Colostomy noted with small amount of stool. PHYSICAL EXAM: VITAL SIGNS: Currently stable. GENERAL: Well-developed in no acute distress, on mechanical ventilation. HEENT: No sclera icterus. Extraocular movements grossly intact. Moist buccal mucosa. Head is atraumatic, normocephalic. Hears conversational speech. No nasal drainage. NECK: Supple without lymphadenopathy. CHEST: Non-labored respirations and equal bilateral excursions. CARDIOVASCULAR: Regular rate with regular rhythm. Palpable 2+ radial pulses. ABDOMEN: Soft. Nondistended. Tenderness upon palpation of all 4 quadrant, most severe in right lower quadrant MUSCULOSKELETAL: No clubbing, cyanosis or edema. NEUROLOGIC: No focal or lateralizing signs. Cranial nerves II through XII grossly intact. PSYCH: Appropriate affect. Alert and oriented to person, place and time. SKIN: Large wound to scrotal region with erythema and foul smelling purulent drainage. ASSESSMENT: 1. Necrotizing fasciitis with secondary sepsis 2. S/P diverting loop colostomy, repair of incarcerated ventral hernia, partial omentectomy PLAN: Per nursing, plan is to transfer patient to tertiary facility today. If transfer does not occur, may begin tube feedings Nurse practitioner note has been reviewed by physician. Signing provider agrees with the documented findings, assessment, and plan of care. Objective - Vital Signs Vital signs: Vital Signs Temp 99.2 F 04/07/18 06:00 Pulse 87 04/07/18 08:28 Resp 26 H 04/07/18 08:00 BP 113/70 04/07/18 08:00 Pulse Ox 97 04/07/18 08:00 Intake & Output 04/06/18 04/07/18 04/07/18 18:59 06:59 18:59 Intake Total 1433 1230.00 106 Output Total 1225 790 95 Balance 208 440.00 11 Weight 212.2 kg Intake: IV 683 730 106 0.9% .Pressure Bag 33 30 6 Piperacillin-Tazobactam 3 100 100 .375 gm In Sodium Chloride 0.9% 100 ml @ 25 mls/hr IVPB Q8HR [facility] Rx# :[id number] Sodium Chloride 0.9% 1, 550 500 100 000 ml @ 50 mls/hr IV . Q20H [facility] Rx#:[id number] metroNIDAZOLE-NS PMX 500 100 mg In Saline 1 100ml.bag @ 100 mls/hr IVPB Q6HR [facility] Rx#:[id number] Intake, IV Titration 750 500.00 Amount Propofol 1,000 mg In 500 500.00 Empty Bag 1 bag @ Titrate IV .Q0M [facility] Rx#: [id number] Sodium Chloride 0.9% 1, 50 000 ml @ 50 mls/hr IV . Q20H [facility] Rx#:[id number] metroNIDAZOLE-NS PMX 500 200 mg In Saline 1 100ml.bag @ 100 mls/hr IVPB Q6HR [facility] Rx#:[id number] Output: Urine 1225 760 95 Estimated Blood Loss 30 Other: Voiding Method Indwelling Catheter Indwelling Catheter ABP, PAP, CO, CI - Last Documented Arterial Blood Pressure 93/64 - Labs CBC & Chem 7: 04/07/18 04:10 04/07/18 04:10 Labs: Abnormal Lab Results - Last 24 Hours (Table) 04/06/18 04/06/18 04/06/18 Range/Units 11:52 17:47 23:51 WBC (3.8-10.6) k/uL RBC (4.30-5.90) m/uL Hgb (13.0-17.5) gm/dL Hct (39.0-53.0) % MCV (80.0-100.0) fL MCHC (31.0-37.0) g/dL Neutrophils # (Manual) (1.3-7.7) k/uL Myelocytes # (Manual) (0) k/uL ABG pH (7.35-7.45) Chloride (98-107) mmol/L Carbon Dioxide (22-30) mmol/L BUN (9-20) mg/dL Creatinine (0.66-1.25) mg/dL Glucose (74-99) mg/dL POC Glucose (mg/dL) 111 H 120 H 130 H (75-99) mg/dL Calcium (8.4-10.2) mg/dL Phosphorus (2.5-4.5) mg/dL Magnesium (1.6-2.3) mg/dL Total Protein (6.3-8.2) g/dL Albumin (3.5-5.0) g/dL 04/07/18 04/07/18 04/07/18 Range/Units 04:10 04:10 05:12 WBC 17.5 H (3.8-10.6) k/uL RBC 3.76 L (4.30-5.90) m/uL Hgb 11.6 L (13.0-17.5) gm/dL Hct 38.2 L (39.0-53.0) % MCV 101.4 H (80.0-100.0) fL MCHC 30.4 L (31.0-37.0) g/dL Neutrophils # (Manual) 15.40 H (1.3-7.7) k/uL Myelocytes # (Manual) 0.18 H (0) k/uL ABG pH (7.35-7.45) Chloride 112 H (98-107) mmol/L Carbon Dioxide 19 L (22-30) mmol/L BUN 102 H* (9-20) mg/dL Creatinine 2.75 H (0.66-1.25) mg/dL Glucose 108 H (74-99) mg/dL POC Glucose (mg/dL) 106 H (75-99) mg/dL Calcium 8.1 L (8.4-10.2) mg/dL Phosphorus 8.1 H (2.5-4.5) mg/dL Magnesium 2.4 H (1.6-2.3) mg/dL Total Protein 5.7 L (6.3-8.2) g/dL Albumin 2.2 L (3.5-5.0) g/dL 04/07/18 Range/Units 07:51 WBC (3.8-10.6) k/uL RBC (4.30-5.90) m/uL Hgb (13.0-17.5) gm/dL Hct (39.0-53.0) % MCV (80.0-100.0) fL MCHC (31.0-37.0) g/dL Neutrophils # (Manual) (1.3-7.7) k/uL Myelocytes # (Manual) (0) k/uL ABG pH 7.32 L (7.35-7.45) Chloride (98-107) mmol/L Carbon Dioxide (22-30) mmol/L BUN (9-20) mg/dL Creatinine (0.66-1.25) mg/dL Glucose (74-99) mg/dL POC Glucose (mg/dL) (75-99) mg/dL Calcium (8.4-10.2) mg/dL Phosphorus (2.5-4.5) mg/dL Magnesium (1.6-2.3) mg/dL Total Protein (6.3-8.2) g/dL Albumin (3.5-5.0) g/dL Microbiology - Last 24 Hours (Table) 04/02/18 03:42 Blood Culture - Preliminary Blood No Growth after 120 hours 04/01/18 20:05 Blood Culture - Preliminary Blood No Growth after 120 hours 04/01/18 18:57 Blood Culture - Preliminary Blood No Growth after 120 hours
[2018-04-07] MEDS: PANTOPRAZOLE 40 MG/10 ML VIAL IV SCH (09:58)
[2018-04-07] MEDS: CHLORHEXIDINE GLUCONATE 15 ML CUP MUCOUS MEM SCH (09:58)
[2018-04-07] MEDS: HEPARIN SODIUM,PORCINE 5,000 UNIT/ML 1 ML VIAL SQ SCH (09:58)
[2018-04-07] MEDS: CALCIUM ACETATE 667 MG CAP PO SCH (09:58)
[2018-04-07] MEDS: PIPERACILLIN-TAZOBACTAM 3.375 GM in SODIUM CHLORIDE 0.9% 100 ML IVPB SCH (09:58)
[2018-04-07] MEDS: ASPIRIN 81 MG PO SCH (09:59)
[2018-04-07] MEDS: NYSTATIN 100,000 UNIT/GM POWD 15 GM TOPICAL SCH (10:00)
[2018-04-07] MEDS: SODIUM HYPOCHLORITE 0.25% 480 ML BOT MISCELLANE SCH (10:00)
--- NOTE | 2018-04-07 10:10 | PN ---
PROGRESS NOTE Mr. Sandhu is a 47-year-old male who presented with symptoms of progressive dyspnea, fatigue, lack of energy, was found to have Murali's gangrene of scrotum as well as draining in the perianal area and underwent diverting colostomy. He underwent repeat debridement yesterday. He continues to be intubated and sedated. Hemodynamically he is stable. He is in sinus mechanism. There is no evidence of tachycardia or bradycardia. He continues to be at this time on aspirin once a day, hydralazine 25 mg 3 times a day, metoprolol tartrate 5 mg q.8 hours. PHYSICAL EXAMINATION: Blood pressure 112/90 with a heart in the 80s. LUNGS: Clear anteriorly. HEART: Regular rate and rhythm, S1, S2. No S3 with a systolic murmur. ABDOMEN: Soft, obese, and colostomy noted. Erythema noted in the lower abdomen with induration. EXTREMITIES: +2 edema with chronic skin changes. LAB DATA: Revealed a BUN and creatinine of 102 and 2.75, potassium 3.9, hemoglobin of 11.6. IMPRESSION: 1. Sepsis with Murali's gangrene and perianal abscess with diverting colostomy. 2. Respiratory failure. 3. Renal failure. 4. Hypertension. 5. Morbid obesity. 6. Diabetes mellitus. RECOMMENDATION: From the cardiac standpoint, will continue present therapy. There is a plan of possible transferring patient to a tertiary care unit. Will see him on an as-needed basis. Please feel free to call us for any questions. MMODL / IJN: [id number] /
[2018-04-07 10:27] VITALS: BMI 58.4
[2018-04-07] MEDS: hydrALAZINE HCL 25 MG TAB PO SCH (10:52)
[2018-04-07 11:01] VITALS: BP 113/71; PULSE 78; RESP 23
--- NOTE | 2018-04-07 12:38 | P.PN ---
Subjective Progress Note Date: 04/07/18 Principal diagnosis: Murali"s gangrene, necrotizing fasciitis and sepsis This is a 47-year-old morbidly obese male patient, who has not had any regular follow-up on his healthcare, which is diabetic and he presented to the hospital because of necrotizing fasciitis of the scrotum. The patient has been feeling sick. He was having dull aching pain in the scrotal area along with red discoloration in the scrotal area and the perianal area extending to the right lower abdominal fold all the way up to his right lateral abdominal wall. At the same time there was foul smelling drainage. He denies having any high- grade fever. He was experiencing some shortness of breath. He came in with a white cell count of 19,000. Immediately, he had a urology consultation the patient was taken to the operating room where he underwent scrotal exploration with debridement of the necrotic scrotal skin. There was an infection that was tracking superiorly into the right inguinal region and inferiorly to the dependent portion of the scrotum. Postop, the patient was kept intubated and the patient was brought into the ICU for further care. On 04/05/2018, patient remains in the intensive care unit, he is on 5 L nasal cannula, O2 saturation is in the 93% range, patient denies any shortness of breath, no cough, no wheezing, denies any chest pain. Patient is scheduled to undergo diaphoretic colostomy today, and he will likely have further debridement of the scrotal area which will be done by either general surgery or urology or possibly both. Apparently there was a concern about a fistula from the GI tract contributing to his initial presentation of severe necrotizing fasciitis and abscesses. Patient had a combination of Proteus and enterococcus faecalis. his sputum was positive for Haemophilus influenza. Continues to have leukocytosis with WBC of 16.4. Renal functioning is improving, creatinine is down to 2.71 BUN is 97. Patient was evaluated today on 04/06/2018, patient came back from the operating room yesterday on mechanical ventilation, and he remains on mechanical ventilation today. His ventilator settings are FiO2 of 60%, tidal volume of 600 assist control rate of 20 and PEEP is up to 8. ABG this morning showed a pO2 of 102 pCO2 of 42 pH of 7.32 and this was on 70% FiO2. Hence PEEP was increased and FiO2 was cut down to 60%. Patient has leukocytosis with WBC count of 18.4 hemoglobin is 12.5. Continues to have acute kidney injury with BUN of 94 creatinine of 2.90. Patient underwent transverse loop colostomy yesterday,, and he is scheduled to have scrotal debridement today by urology again and this would be done under general anesthesia. Hence I have no plans to wean or extubated the patient today, I will keep him on mechanical ventilation, as a matter of fact his gases are marginal, I even doubt the patient is even weaning of all at this point in time. Chest x-ray is slightly worse, it is showing small pleural effusions and bibasilar atelectasis. Patient is presently sedated, on propofol. Patient was reevaluated today on 04/07/2018, underwent debridement of his scrotal area yesterday by Dr. Martinez. This was done under general anesthesia, patient remained on mechanical ventilation, and he remains in the ICU today. His ventilator settings were reviewed, he is presently on FiO2 of 60%, PEEP of 8 , tidal volume of 600, and control rate of 20. ABG showed a pO2 of 86 pCO2 of 41 pH of 7.32. Chest x-ray showed basilar atelectasis, and possibly small bilateral pleural effusions. CBC showed leukocytosis with WBC count of 17.5, hemoglobin is 11.6. Normal electrolytes, bicarb is noted a bit low at 19, however his BUN is 102 and creatinine is 2.75. Patient remains on broad- spectrum antibiotics as recommended by infectious disease on the case. Apparently after the case was done yesterday, Dr. martinez discussed his findings with the family, and my understanding is that he is recommending transferring the patient to a tertiary care center. At this point the patient remains on relatively high FiO2, relatively high PEEP, I have no plans to address weaning and extubation today. I did feel it would be best at this point to keep him on mechanical ventilation, and possibly proceed with plans to transfer to [facility] as recommended by the urologist on the case. Apparently this was also discussed with the infectious disease specialist on the case. Patient remains on propofol at 55 mcg/kg/m, he is not requiring any pressors at this point, blood pressure seems to be holding nicely. Objective - Vital Signs Vital signs: Vital Signs Temp 99.2 F 04/07/18 06:00 Pulse 78 04/07/18 11:00 Resp 23 04/07/18 11:00 BP 113/71 04/07/18 11:00 Pulse Ox 96 04/07/18 11:00 Intake & Output 04/06/18 04/07/18 04/07/18 18:59 06:59 18:59 Intake Total 1433 1230.00 526.851 Output Total 1225 790 300 Balance 208 440.00 226.851 Weight 212.2 kg 212.2 kg Intake: IV 683 730 365 0.9% .Pressure Bag 33 30 15 Piperacillin-Tazobactam 3 100 100 100 .375 gm In Sodium Chloride 0.9% 100 ml @ 25 mls/hr IVPB Q8HR MANJIT Rx# :[id number] Sodium Chloride 0.9% 1, 550 500 250 000 ml @ 50 mls/hr IV . Q20H MANJIT Rx#:[id number] metroNIDAZOLE-NS PMX 500 100 mg In Saline 1 100ml.bag @ 100 mls/hr IVPB Q6HR MANJIT Rx#:[id number] Intake, IV Titration 750 500.00 161.851 Amount Propofol 1,000 mg In 500 500.00 161.851 Empty Bag 1 bag @ Titrate IV .Q0M MANJIT Rx#: [id number] Sodium Chloride 0.9% 1, 50 000 ml @ 50 mls/hr IV . Q20H MANJIT Rx#:[id number] metroNIDAZOLE-NS PMX 500 200 mg In Saline 1 100ml.bag @ 100 mls/hr IVPB Q6HR MANJIT Rx#:[id number] Output: Urine 1225 760 300 Estimated Blood Loss 30 Other: Voiding Method Indwelling Catheter Indwelling Catheter ABP, PAP, CO, CI - Last Documented Arterial Blood Pressure 93/57 - Exam Physical Exam: Revealed a morbidly obese 47-year-old white male on mechanical ventilation, on propofol, sedated. Head: Atraumatic, normocephalic. HEENT:[Neck is supple.] [No neck masses.] [No thyromegaly.] [No JVD.] PERRLA, EOMI, moist mucous membranes. Endotracheal tube is intact. Chest: [Diminished breath sounds and crackles at the bases.] Symmetrical chest expansion, no chest wall tenderness. Cardiac Exam: [Distant S1 and S2, no S3 gallop, no murmur.] Abdomen: [Obese, Soft, nontender, no megaly, no rebound, no guarding, normal bowel sounds.] Transverse colostomy is noted in the upper abdomen. Minimal dark fluid collection in the bag noted. Extremities: [No clubbing, 2+ bipedal edema, no cyanosis.] Neurological Exam: Cannot be assessed today, however he had intact mental status and neurological exam yesterday. The perianal area was noted to have postsurgical changes, scrotal area noted to be incised and packed, there is evidence of significant cellulitis, erythema, extending from the scrotal area into the right inguinal area extending into the right lateral abdominal wall and to the flank area. Noted to be foul-smelling. This is being addressed by surgery and urology. Psychiatric: Cannot be assessed, fully sedated Lymphatics: No lymphadenopathy. - Labs CBC & Chem 7: 04/07/18 04:10 04/07/18 04:10 Labs: Abnormal Lab Results - Last 24 Hours (Table) 04/06/18 04/06/18 04/07/18 Range/Units 17:47 23:51 04:10 WBC 17.5 H (3.8-10.6) k/uL RBC 3.76 L (4.30-5.90) m/uL Hgb 11.6 L (13.0-17.5) gm/dL Hct 38.2 L (39.0-53.0) % MCV 101.4 H (80.0-100.0) fL MCHC 30.4 L (31.0-37.0) g/dL Neutrophils # (Manual) 15.40 H (1.3-7.7) k/uL Myelocytes # (Manual) 0.18 H (0) k/uL ABG pH (7.35-7.45) Chloride (98-107) mmol/L Carbon Dioxide (22-30) mmol/L BUN (9-20) mg/dL Creatinine (0.66-1.25) mg/dL Glucose (74-99) mg/dL POC Glucose (mg/dL) 120 H 130 H (75-99) mg/dL Calcium (8.4-10.2) mg/dL Phosphorus (2.5-4.5) mg/dL Magnesium (1.6-2.3) mg/dL Total Protein (6.3-8.2) g/dL Albumin (3.5-5.0) g/dL 04/07/18 04/07/18 04/07/18 Range/Units 04:10 05:12 07:51 WBC (3.8-10.6) k/uL RBC (4.30-5.90) m/uL Hgb (13.0-17.5) gm/dL Hct (39.0-53.0) % MCV (80.0-100.0) fL MCHC (31.0-37.0) g/dL Neutrophils # (Manual) (1.3-7.7) k/uL Myelocytes # (Manual) (0) k/uL ABG pH 7.32 L (7.35-7.45) Chloride 112 H (98-107) mmol/L Carbon Dioxide 19 L (22-30) mmol/L BUN 102 H* (9-20) mg/dL Creatinine 2.75 H (0.66-1.25) mg/dL Glucose 108 H (74-99) mg/dL POC Glucose (mg/dL) 106 H (75-99) mg/dL Calcium 8.1 L (8.4-10.2) mg/dL Phosphorus 8.1 H (2.5-4.5) mg/dL Magnesium 2.4 H (1.6-2.3) mg/dL Total Protein 5.7 L (6.3-8.2) g/dL Albumin 2.2 L (3.5-5.0) g/dL Microbiology - Last 24 Hours (Table) 04/02/18 03:42 Blood Culture - Preliminary Blood No Growth after 120 hours 04/01/18 20:05 Blood Culture - Preliminary Blood No Growth after 120 hours 04/01/18 18:57 Blood Culture - Preliminary Blood No Growth after 120 hours Assessment and Plan Assessment: Impression: 1 Murali's gangrene/necrotizing fasciitis with secondary sepsis, patient is status post debridement, that debrided tissue was positive for Proteus and enterococcus faecalis. 2 acute sepsis secondary to above 3 acute hypoxic respiratory failure secondary to above and mostly secondary to sepsis suspect the patient may be developing ARDS from his ongoing necrotizing fasciitis. Patient is still requiring high FiO2 and a relatively high PEEP. 4 acute on chronic kidney injury, most likely secondary to sepsis 5 morbid obesity 6 type 2 diabetes poorly controlled on outpatient basis. 7 status post transverse colostomy/diverting colostomy postoperative day #2 8 status post scrotal debridement for necrotizing fasciitis postoperative day # 1. Recommendation: Continue ventilatory support, antibiotics, nutritional support, GI and DVT prophylaxis, patient is not ready for any weaning trials today, and considering the patient may be considered for transfer, I will not to hold sedation today, patient is hemodynamically stable for transfer. Continue present supportive care measures, the admitting physician will be notified about the recommendation of the surgeon on the case, and I fully agree with transfer plans as recommended by different consultants on the case. Critical care time is 35 minutes. Time with Patient: Greater than 30
== END 2018-04-07 15:48 | disposition short-term general hospital (02) | DRG 853 ==
LOC: EC 21:10 → 3SCARD 23:46 → 2SICU 04-01 23:38
PROVIDERS: ADMIT Hospitalist; ATTEND Hospitalist
PROC: 0JBC0ZZ Excision of Pelvic Region Subcutaneous Tissue and Fascia, Open Approach (ICD-10-PCS; principal; 2018-04-02)
PROC: 5A1945Z Respiratory Ventilation, 24-96 Consecutive Hours (ICD-10-PCS; 2018-04-02)
PROC: 0BH17EZ Insertion of Endotracheal Airway into Trachea, Via Natural or Artificial Opening (ICD-10-PCS; 2018-04-02)
PROC: 04HY32Z Insertion of Monitoring Device into Lower Artery, Percutaneous Approach (ICD-10-PCS; 2018-04-02)
PROC: 4A133B1 Monitoring of Arterial Pressure, Peripheral, Percutaneous Approach (ICD-10-PCS; 2018-04-02)
PROC: 4A133J1 Monitoring of Arterial Pulse, Peripheral, Percutaneous Approach (ICD-10-PCS; 2018-04-02)
PROC: 05H633Z Insertion of Infusion Device into Left Subclavian Vein, Percutaneous Approach (ICD-10-PCS; 2018-04-02)
PROC: 5A09357 Assistance with Respiratory Ventilation, Less than 24 Consecutive Hours, Continuous Positive Airway Pressure (ICD-10-PCS; 2018-04-03)
PROC: 0D1L0Z4 Bypass Transverse Colon to Cutaneous, Open Approach (ICD-10-PCS; 2018-04-05)
PROC: 0WQF0ZZ Repair Abdominal Wall, Open Approach (ICD-10-PCS; 2018-04-05)
PROC: 0DBU0ZZ Excision of Omentum, Open Approach (ICD-10-PCS; 2018-04-05)
PROC: 0JBC0ZZ Excision of Pelvic Region Subcutaneous Tissue and Fascia, Open Approach (ICD-10-PCS; 2018-04-06)
DX: A41.81 Sepsis due to Enterococcus (principal); I50.33 Acute on chronic diastolic (congestive) heart failure; J96.01 Acute respiratory failure with hypoxia; J96.02 Acute respiratory failure with hypercapnia; N17.0 Acute kidney failure with tubular necrosis; M72.6 Necrotizing fasciitis; E66.2 Morbid (severe) obesity with alveolar hypoventilation; E87.2 Acidosis; I13.0 Hypertensive heart and chronic kidney disease with heart failure and stage 1 through stage 4 chronic kidney disease, or unspecified chronic kidney disease; J44.1 Chronic obstructive pulmonary disease with (acute) exacerbation; J98.11 Atelectasis; K43.6 Other and unspecified ventral hernia with obstruction, without gangrene; Z68.43 Body mass index [BMI] 50.0-59.9, adult; A41.51 Sepsis due to Escherichia coli [E. coli]; A41.59 Other Gram-negative sepsis; R65.20 Severe sepsis without septic shock; E11.22 Type 2 diabetes mellitus with diabetic chronic kidney disease; E83.39 Other disorders of phosphorus metabolism; E88.09 Other disorders of plasma-protein metabolism, not elsewhere classified; N18.3 Chronic kidney disease, stage 3 (moderate); B37.2 Candidiasis of skin and nail; E11.65 Type 2 diabetes mellitus with hyperglycemia; E78.5 Hyperlipidemia, unspecified; E87.6 Hypokalemia; F17.210 Nicotine dependence, cigarettes, uncomplicated; I49.3 Ventricular premature depolarization; N50.89 Other specified disorders of the male genital organs; N49.3 Fournier gangrene; N49.2 Inflammatory disorders of scrotum; R77.9 Abnormality of plasma protein, unspecified; T39.315A Adverse effect of propionic acid derivatives, initial encounter; Z91.128 Patient's intentional underdosing of medication regimen for other reason; Z82.49 Family history of ischemic heart disease and other diseases of the circulatory system; Z84.1 Family history of disorders of kidney and ureter; W19.XXXA Unspecified fall, initial encounter
CPT/HCPCS: 36415; 36600; 71045; 71046; 76770; 78582; 80048; 80053; 80061; 81001; 82550; 82553; 82805; 83036; 83605; 83735; 83880; 84100; 84443; 84484; 85025; 85049; 85379; 85610; 85730; 87040; 87070; 87075; 87077; 87086; 87186; 87205; 88304; 88305; 93005; 93306; 93970; 94002; 94003; 94640; 94660; 94760; 96365; 96375; 96376; 99285